=== PATIENT | male | born 1930 | race Caucasian/White ===

== ENCOUNTER 2016-07-13 17:20 | Inpatient (IN) | payer MEDICARE ==
[~2016-07-13] VITALS: Ht 185.4 cm; Wt 90.2 kg
[2016-07-13] MEDS ORDERED: PANTOPRAZOLE 40MG INJ (PROTONIX) (C9113) As Ordered ONE (17:58)
[2016-07-13 18:09] LABS: BASO % 0.3 % (0.0-1.0); EOS # 0.1 K/mm3 (0.0-0.50); EOS % 1.2 % (0.0-3.0); LARGE UNSTAINED CELL # 0.3 K/mm3 (0.0-0.4); LARGE UNSTAINED CELL % 2.4 % (0.0-4.0); LYMPH # 1.8 K/mm3 (1.5-4.5); LYMPH % 16.8 % (24.0-44.0); MEAN CORPUSCULAR HEMOGLOBIN 25.4 pg (27.0-33.0); MEAN CORPUSCULAR HGB CONC 31.1 g/dl (32.0-36.5); MEAN CORPUSCULAR VOLUME 81.7 fl (80.0-96.0); MONO # 0.8 K/mm3 (0.0-0.8); MONO % 7.3 % (0.0-5.0); NEUTROPHILS # 7.7 K/mm3 (1.8-7.7); NEUTROPHILS % 71.9 % (36.0-66.0); PLATELET COUNT, AUTOMATED 201 k/mm3 (150-450); RED CELL DISTRIBUTION WIDTH 16.4 % (11.5-14.5); WHITE BLOOD COUNT 10.6 K/mm3 (4.0-10.0)
[2016-07-13 18:16] LABS: INR 1.8
--- NOTE | 2016-07-13 18:29 | REP ---
Clinical: Shortness of breath . Comparison: None . Findings: The mediastinum and cardiac silhouette are stable and within normal limits for portable technique. The lung bernardo are clear without acute consolidation, effusion, or pneumothorax. Skeletal structures are intact. Impression: Normal portable chest x-ray Signed by Chu Espinoza MD 07/13/2016 06:20 P
[2016-07-13] MEDS ORDERED: XARE20TA PO (18:31)
[2016-07-13] MEDS ORDERED: IRBE150T12 PO (18:31)
[2016-07-13] MEDS ORDERED: FERR325T PO (18:31)
[2016-07-13 18:38] LABS: ALBUMIN 3.4 GM/DL (3.2-5.2); ALBUMIN/GLOBULIN RATIO 1.17 (1.00-1.93); ALKALINE PHOSPHATASE 65 U/L (45-117); ALT/SGPT 22 U/L (12-78); ANION GAP 9 MEQ/L (8-16); AST/SGOT 16 U/L (15-37); BILIRUBIN,DIRECT < 0.1 MG/DL (0.0-0.2); BILIRUBIN,TOTAL 0.2 MG/DL (0.2-1.0); BLOOD UREA NITROGEN 38 MG/DL (7-18); CALCIUM LEVEL 8.3 MG/DL (8.8-10.2); CARBON DIOXIDE LEVEL 24 MEQ/L (21-32); CHLORIDE LEVEL 107 MEQ/L (98-107); CREATININE FOR GFR 1.36 MG/DL (0.70-1.30); GLOMERULAR FILTRATION RATE 53.3 (>35); GLUCOSE, FASTING 121 MG/DL (83-110); POTASSIUM SERUM 4.4 MEQ/L (3.5-5.1); SODIUM LEVEL 140 MEQ/L (136-145); TOTAL PROTEIN 6.3 GM/DL (6.4-8.2)
[2016-07-13] MEDS ORDERED: BISACODYL 5 MG TAB PO PRN (20:15)
[2016-07-13] MEDS ORDERED: ACETAMINOPHEN TAB 650MG DOSE (2X325MG) PO PRN (20:15)
[2016-07-13] MEDS ORDERED: ONDANSETRON 4MG/2ML VIAL (J2405) IV PRN (20:15)
--- NOTE | 2016-07-13 22:02 | EDDOCDS ---
Physician Documentation [facility] Name: Royal Mahin Coppola Age: 85 yrs Sex: Male : 1930 Arrival Date: 07/13/2016 Time: 17:20 Bed 9 Private MD: Lurdes Disposition: 07/13/16 18:59 Hospitalization ordered by Demian Mccauley for Inpatient Admission. Preliminary diagnosis are Gastrointestinal hemorrhage, unspecified, Anemia, unspecified. - Bed requested for 4 [place]. - Status is Inpatient Admission. kas2 - Condition is Stable. - Problem is new. - Symptoms are unchanged. Historical: - Allergies: PENICILLINS; - Home Meds: 1. Xarelto 20 mg oral tab 1 tab once daily 2. irbesartan 150 mg oral tab 1 tab once daily 3. ferrous sulfate 140 mg (45 mg iron) Oral TbER twice a day - PMHx: Atrial Fib; AAA; Hypertension; Cancer, Prostate; - PSHx: Hemorrhoidectomy; - Social history: Smoking status: Patient states was never smoker of tobacco. No barriers to communication noted, The patient speaks fluent Kinyarwanda, Speaks appropriately for age. - Family history: Not pertinent. - : The pt / caregiver states he / she is on anticoagulants: Xarelto Home medication list is obtained from pill bottles. - Exposure Risk Screening:: None identified. Vital Signs: 07/13 17:22 BP 108 / 61; Pulse 96; Resp 18 S; Temp 97.3(O); Pulse Ox 99% on R/A; Weight 92.53 kg / gr2 203.99 lbs (R); Height 6 ft. 1 in. (185.42 cm) (R); Pain 3/10; 18:04 BP 139 / 65 (auto/); kas2 18:04 Pulse 84 MON; Pulse Ox 97% ; kas2 18:10 BP 139 / 65 LA Supine (auto/); Pulse 88; jjr 18:11 BP 87 / 58 LA Sitting (auto/); Pulse 109; jjr 18:20 BP 119 / 67 (auto/); jjr 18:20 Pulse 86 MON; Pulse Ox 98% ; jjr 18:34 Pulse 86 MON; Resp 18; Pulse Ox 97% on R/A; jjr 18:35 BP 126 / 60 (auto/); jjr 18:50 BP 121 / 55 (auto/); jjr 18:50 Pulse 80 MON; Pulse Ox 98% ; jjr 19:20 BP 118 / 59 (auto/); kas2 19:20 Pulse 88 MON; Pulse Ox 97% ; kas2 19:36 BP 133 / 61 (auto/); kas2 19:36 Pulse 96 MON; Pulse Ox 98% ; kas2 19:45 BP 133 / 61; Pulse 84; Resp 18; Temp 98.1(O); Pulse Ox 97% on R/A; Pain 0/10; kas2 19:50 BP 158 / 70 (auto/); kas2 19:50 Pulse 92 MON; Pulse Ox 98% ; kas2 19:58 BP 159 / 75 (auto/); kas2 19:58 Pulse 94 MON; Pulse Ox 98% ; kas2 20:00 Resp 18; Temp 98.7(O); Pain 0/10; kas2 20:05 BP 147 / 66 (auto/); kas2 20:05 Pulse 96 MON; Pulse Ox 99% ; kas2 20:20 BP 140 / 57 (auto/); kas2 20:20 Pulse 82 MON; Pulse Ox 97% ; kas2 20:35 BP 129 / 62 (auto/); kas2 20:35 Pulse 82 MON; Pulse Ox 97% ; kas2 20:47 BP 130 / 60 (auto/); kas2 20:47 Pulse 78 MON; Pulse Ox 97% ; kas2 20:50 BP 146 / 64 (auto/); kas2 20:50 Pulse 92 MON; Pulse Ox 96% ; kas2 21:05 BP 149 / 68 (auto/); kas2 21:05 Pulse 82 MON; Pulse Ox 98% ; kas2 21:19 BP 149 / 68; Pulse 88; Resp 18; Temp 97.6(O); Pulse Ox 98% on R/A; Pain 0/10; kas2 21:20 BP 146 / 70 (auto/); kas2 21:20 Pulse 84 MON; Pulse Ox 97% ; kas2 21:24 BP 145 / 68 (auto/); kas2 21:24 Pulse 100 MON; Pulse Ox 98% ; kas2 21:30 BP 145 / 68; Pulse 87; Resp 18; Temp 97.6; Pulse Ox 98% on R/A; Pain 0/10; kas2 21:35 BP 152 / 70 (auto/); kas2 21:35 Pulse 90 MON; Pulse Ox 97% ; kas2 21:43 BP 145 / 67 (auto/); kas2 21:43 Pulse 84 MON; Pulse Ox 98% ; kas2 21:52 BP 145 / 67; Pulse 81; Resp 18; Temp 98.0(O); Pulse Ox 98% on R/A; Pain 0/10; kas2 17:22 Body Mass Index 26.91 (92.53 kg, 185.42 cm) gr2 MDM: 17:42 Licensed Surveyor/Pulse Ox/q 30 min VS ordered. sd1 17:42 Undress patient appropriately for examination ordered. sd1 17:42 Orthostatic VS ordered. sd1 17:42 IV Saline Lock ordered. sd1 17:42 Basic Metabolic Profile Ordered. EDMS 17:42 CBC with Diff Ordered. EDMS 17:42 Lipase Ordered. EDMS 17:42 Liver Profile Ordered. EDMS 17:42 Prothrombin Time Profile\E\INR Ordered. EDMS 17:43 ECG WITH READING ER PHYS+CARDIAG ordered. EDMS 17:55 pantoprazole 8 mg/hr IV at 10 mL/hr continuous over 72 hrs; 40mg (10mL): withdraw 10mL sd1 from 50mL bag of NS then add protonix ordered. 17:55 pantoprazole 40 mg IV at bolus once ordered. sd1 18:02 BED REQUEST+ADM ordered. EDMS 18:03 Chest, 1 View Ordered. EDMS 18:16 Type and Cross, Packed Cells Ordered. EDMS 18:17 TYPE & SCREEN Ordered. EDMS 18:17 CBC with Diff Reviewed. sd1 18:23 Financial registration complete. gb 18:28 Prothrombin Time Profile\E\INR Reviewed. sd1 18:30 [facility] Payment Agreement was scanned into [employer] and attached to record. gb 18:30 Transfuse PRBC's 2 units, ensure PRBCs ordered in lab ordered. sd1 18:39 Basic Metabolic Profile Reviewed. sd1 18:39 Liver Profile Reviewed. sd1 18:39 Lipase Reviewed. sd1 18:39 Chest, 1 View Reviewed. sd1 20:15 NPO DIET ordered. EDMS 20:15 CBC WITH DIFFERENTIAL Ordered. EDMS 20:15 COMPLETE COMPHRENSIVE METABOLI Ordered. EDMS 20:17 HEMOGLOBIN & HEMATOCRIT Ordered. EDMS 20:17 HEMOGLOBIN & HEMATOCRIT Ordered. EDMS 20:17 HEMOGLOBIN & HEMATOCRIT Ordered. EDMS 21:20 Admission / Observation Status ordered. EDMS 21:54 T-Sheet-- Draft Copy was scanned into [employer] and attached to record. klr Administered Medications: 18:13 Drug: pantoprazole 40 mg [pantoprazole 40 mg intravenous solution] Route: IV; Rate: ld5 bolus; Site: right antecubital; 18:19 Drug: pantoprazole 8 mg/hr [pantoprazole 40 mg intravenous solution] Route: IV; Rate: jjr 10 mL/hr; Infused Over: 72 hrs; Site: right antecubital; Signatures: Dispatcher [employer] EDMS Katie Erwin MD MD sd1 Tarsha Calderon Reg Reg gb Barney, Michael B RN RN mlb1 Lashon Belcher RN RN sls1 Radha Davison RN RN kas2 Melida Kwon Jessica RN jjr Dickerson, Laura RN ld5 The chart was reviewed and I authenticate all verbal orders and agree with the evaluation and treatment provided.Corrections: (The following items were deleted from the chart) 18:41 17:43 TYPE & SCREEN+BBK ordered. EDIN EDMS Attachments: 18:30 [facility] Payment Agreement gb 21:54 T-Sheet-- Draft Copy klr MTDD
--- NOTE | 2016-07-13 22:02 | EDDOCDS ---
Nurse's Notes [facility] Name: Royal Mahin Coppola Age: 85 yrs Sex: Male : 1930 Arrival Date: 07/13/2016 Time: 17:20 Bed 9 Private MD: Lurdes Diagnosis: Gastrointestinal hemorrhage, unspecified;Anemia, unspecified Presentation: 07/13 17:27 Presenting complaint: Patient states: SOB weakness and bloody stools began on Friday mlb1 seen at [facility] on diagnosed with anemia states SOB worse since. Adult Sepsis Screening: The patient does not have new or worsening altered mentation. Patient's respiratory rate is less than 22. Systolic blood pressure is greater than 100. Patient has a qSOFA score of 0- Negative Sepsis Screen. Suicide/Homicide risk assessment- the patient denies having any suicidal and/or homicidal ideations and does not present with any other emotional, behavioral or mental health complaints. Status: Patient is not a building serviceman or dependent. Transition of care: patient was not received from another setting of care. 17:27 Acuity: LAURA Level 3 mlb1 17:27 Method Of Arrival: Walkin/Carried/Asstd mlb1 Triage Assessment: 17:31 General: Appears in no apparent distress, Behavior is appropriate for age, cooperative. mlb1 Pain: Denies pain. Neurological: Reports weakness. Respiratory: Reports shortness of breath. Historical: - Allergies: PENICILLINS; - Home Meds: 1. Xarelto 20 mg oral tab 1 tab once daily 2. irbesartan 150 mg oral tab 1 tab once daily 3. ferrous sulfate 140 mg (45 mg iron) Oral TbER twice a day - PMHx: Atrial Fib; AAA; Hypertension; Cancer, Prostate; - PSHx: Hemorrhoidectomy; - Social history: Smoking status: Patient states was never smoker of tobacco. No barriers to communication noted, The patient speaks fluent Spanish, Speaks appropriately for age. - Family history: Not pertinent. - : The pt / caregiver states he / she is on anticoagulants: Xarelto Home medication list is obtained from pill bottles. - Exposure Risk Screening:: None identified. Screenin:43 Screening information is obtained from the patient. Fall risk: No risks identified. jjr Assistance ADL's: requires no assistance with activities of daily living. Abuse/DV Screen: The patient / caregiver reports he/she is: not in a situation that causes fear, pain or injury. Nutritional screening: No deficits noted. home support is adequate. 21:49 Advance Directives: Currently, there is no health care proxy. There is no active DNR kas2 order. There is a living will, but a copy is not available at this time. There is no Power of Ear Nose And Throat Specialist. Assessment: 17:42 General: Appears in no apparent distress, well nourished, well groomed, Behavior is jjr appropriate for age. Pain: Denies pain. Neurological: No deficits noted. Cardiovascular: Edema is absent. Respiratory: Airway is patent Respiratory effort is even, unlabored, Respiratory pattern is regular, Breath sounds with rhonchi in right posterior lower lobe Reports shortness of breath on exertion. GI: Abd is soft and non tender X 4 quads. Reports black bowel movements. Derm: Skin is pink, warm & dry. 18:33 General: Appears in no apparent distress. Pain: Denies pain. Neurological: No deficits jjr noted. Cardiovascular: Rhythm is sinus rhythm. Respiratory: Airway is patent Respiratory effort is even, unlabored, Respiratory pattern is regular. Derm: Skin is pink, warm & dry. 18:59 General: Verbal report given by Gladis Morris RN. Assumed care of patient at this time.. kas2 19:45 General: 1st unit of PRBC's initiated. Patient resting in bed. Denies pain or kas2 discomfort at this time. No apparent distress noted. Call bronson within reach. Will continue to monitor.. 19:49 Pain: Denies pain. Neurological: No deficits noted. Level of Consciousness is awake, kas2 alert, Oriented to person, place, time. Cardiovascular: Capillary refill < 3 seconds Heart tones present Edema is absent. Rhythm is sinus rhythm No ectopy. Respiratory: Airway is patent Respiratory effort is even, unlabored, Respiratory pattern is regular, symmetrical, Breath sounds with rhonchi in right posterior lower lobe. GI: Abd is soft and non tender X 4 quads. Derm: Skin is dry, Skin is pink, warm & dry. Skin temperature is warm. 20:59 General: Patient resting in bed watching TV. No apparent distress noted. Denies pain or kas2 discomfort at this time. Appears comfortable. VSS. Call bronson within reach. Will continue to monitor.. 21:18 General: 1st unit of PRBC's finished. No reaction. VSS. Patient continues to be pain kas2 free. No apparent distress. Will continue to monitor.. 21:32 General: 2nd unit of PRBC's initiated. VSS. Patient continues to be pain free. Appears kas2 comfortable. No apparent distress noted. Will continue to monitor.. 21:49 General: Appears in no apparent distress, well nourished, well groomed, Behavior is kas2 appropriate for age. Pain: Denies pain. Neurological: Level of Consciousness is awake, alert, Oriented to person, place, time. Cardiovascular: Capillary refill < 3 seconds Heart tones present Rhythm is sinus rhythm No ectopy. Respiratory: Airway is patent Respiratory effort is even, unlabored, Respiratory pattern is regular, symmetrical, Breath sounds with rhonchi in right posterior lower lobe. GI: Abd is soft and non tender X 4 quads. Derm: Skin is dry, Skin is pink, warm & dry. Skin temperature is warm. Vital Signs: 17:22 BP 108 / 61; Pulse 96; Resp 18 S; Temp 97.3(O); Pulse Ox 99% on R/A; Weight 92.53 kg gr2 (R); Height 6 ft. 1 in. (185.42 cm) (R); Pain 3/10; 18:04 BP 139 / 65 (auto/); kas2 18:04 Pulse 84 MON; Pulse Ox 97% ; kas2 18:10 BP 139 / 65 LA Supine (auto/); Pulse 88; jjr 18:11 BP 87 / 58 LA Sitting (auto/); Pulse 109; jjr 18:20 BP 119 / 67 (auto/); jjr 18:20 Pulse 86 MON; Pulse Ox 98% ; jjr 18:34 Pulse 86 MON; Resp 18; Pulse Ox 97% on R/A; jjr 18:35 BP 126 / 60 (auto/); jjr 18:50 BP 121 / 55 (auto/); jjr 18:50 Pulse 80 MON; Pulse Ox 98% ; jjr 19:20 BP 118 / 59 (auto/); kas2 19:20 Pulse 88 MON; Pulse Ox 97% ; kas2 19:36 BP 133 / 61 (auto/); kas2 19:36 Pulse 96 MON; Pulse Ox 98% ; kas2 19:45 BP 133 / 61; Pulse 84; Resp 18; Temp 98.1(O); Pulse Ox 97% on R/A; Pain 0/10; kas2 19:50 BP 158 / 70 (auto/); kas2 19:50 Pulse 92 MON; Pulse Ox 98% ; kas2 19:58 BP 159 / 75 (auto/); kas2 19:58 Pulse 94 MON; Pulse Ox 98% ; kas2 20:00 Resp 18; Temp 98.7(O); Pain 0/10; kas2 20:05 BP 147 / 66 (auto/); kas2 20:05 Pulse 96 MON; Pulse Ox 99% ; kas2 20:20 BP 140 / 57 (auto/); kas2 20:20 Pulse 82 MON; Pulse Ox 97% ; kas2 20:35 BP 129 / 62 (auto/); kas2 20:35 Pulse 82 MON; Pulse Ox 97% ; kas2 20:47 BP 130 / 60 (auto/); kas2 20:47 Pulse 78 MON; Pulse Ox 97% ; kas2 20:50 BP 146 / 64 (auto/); kas2 20:50 Pulse 92 MON; Pulse Ox 96% ; kas2 21:05 BP 149 / 68 (auto/); kas2 21:05 Pulse 82 MON; Pulse Ox 98% ; kas2 21:19 BP 149 / 68; Pulse 88; Resp 18; Temp 97.6(O); Pulse Ox 98% on R/A; Pain 0/10; kas2 21:20 BP 146 / 70 (auto/); kas2 21:20 Pulse 84 MON; Pulse Ox 97% ; kas2 21:24 BP 145 / 68 (auto/); kas2 21:24 Pulse 100 MON; Pulse Ox 98% ; kas2 21:30 BP 145 / 68; Pulse 87; Resp 18; Temp 97.6; Pulse Ox 98% on R/A; Pain 0/10; kas2 21:35 BP 152 / 70 (auto/); kas2 21:35 Pulse 90 MON; Pulse Ox 97% ; kas2 21:43 BP 145 / 67 (auto/); kas2 21:43 Pulse 84 MON; Pulse Ox 98% ; kas2 21:52 BP 145 / 67; Pulse 81; Resp 18; Temp 98.0(O); Pulse Ox 98% on R/A; Pain 0/10; kas2 17:22 Body Mass Index 26.91 (92.53 kg, 185.42 cm) gr2 Vitals: 17:22 Log In Time: July 13, 2016 at 17:22. RN notified that patient meets Red Flag gr2 criteria. ED Course: 17:22 Patient visited by Haley Zavaleta. gr2 17:22 [place] is Private Physician. gr2 17:22 Patient moved to Waiting gr2 17:25 Patient visited by Haley Zavaleta. gr2 17:25 Patient moved to Pre RCE gr2 17:27 Patient visited by Thaddeus Dougherty, RN. mlb1 17:28 Triage Initiated mlb1 17:32 Patient visited by Thaddeus Dougherty, RN. mlb1 17:32 Gladis Zavaleta, CONRAD is Primary Nurse. mlb1 17:32 Patient moved to 9 mlb1 17:37 Katie Erwin MD is Attending Physician. sd1 17:41 Patient visited by Katie Erwin MD. sd1 17:43 Patient visited by Gladis Zavaleta RN. jjr 17:43 The patient / caregiver is instructed regarding the plan of care and ED course. jjr 17:51 Patient visited by Shubham Davila. jml1 17:51 EKG done. (by ED staff). Reviewed by Katie Erwin MD. jml1 18:03 Basic Metabolic Profile Sent. jjr 18:03 CBC with Diff Sent. jjr 18:03 Lipase Sent. jjr 18:03 Liver Profile Sent. jjr 18:03 Prothrombin Time Profile\E\INR Sent. jjr 18:27 Inserted saline lock: 20 gauge in right in left antecubital area. jjr 18:29 TYPE & SCREEN Sent. rs6 18:29 Type and Cross, Packed Cells Sent. rs6 18:30 [facility] [place] was scanned into [employer] and attached to record. gb 18:33 Patient visited by Gladis Zavaleta RN. jjr 18:39 Chest, 1 View Returned. EDMS 18:58 Primary Nurse role handed off by Gladis Zavaleta RN jjr 18:58 Radha Davison RN is Primary Nurse. kas2 18:59 Demian Mccauley MD is Hospitalizing Provider. sd1 19:00 Patient visited by Radha Davison RN. kas2 19:53 Patient visited by Radha Davison RN. kas2 20:05 Patient visited by Radha Davison RN. kas2 21:01 Patient visited by Radha Davison RN. kas2 21:20 Patient visited by Radha Davison RN. kas2 21:34 Patient visited by Radha Davison RN. kas2 21:49 No procedures done that require assistance. kas2 21:54 T-Sheet-- Draft Copy was scanned into [employer] and attached to record. klr 21:55 Patient visited by Radha Davison RN. kas2 Administered Medications: 18:13 Drug: pantoprazole 40 mg [pantoprazole 40 mg intravenous solution] Route: IV; Rate: ld5 bolus; Site: right antecubital; 18:19 Drug: pantoprazole 8 mg/hr [pantoprazole 40 mg intravenous solution] Route: IV; Rate: jjr 10 mL/hr; Infused Over: 72 hrs; Site: right antecubital; Order Results: Lab Order: Basic Metabolic Profile; [facility] 07/13/16 18:01 Test: GLUCOSE, FASTING; Value: 121; Range: 83-110; Abnormal: Above high normal; Units: MG/DL; Status: F Test: BLOOD UREA NITROGEN; Value: 38; Range: 7-18; Abnormal: Above high normal; Units: MG/DL; Status: F Test: CREATININE FOR GFR; Value: 1.36; Range: 0.70-1.30; Abnormal: Above high normal; Units: MG/DL; Status: F Test: GLOMERULAR FILTRATION RATE; Value: 53.3; Range: >35; Status: F Test: SODIUM LEVEL; Value: 140; Range: 136-145; Units: MEQ/L; Status: F Test: POTASSIUM SERUM; Value: 4.4; Range: 3.5-5.1; Units: MEQ/L; Status: F Test: CHLORIDE LEVEL; Value: 107; Range: 98-107; Units: MEQ/L; Status: F Test: CARBON DIOXIDE LEVEL; Value: 24; Range: 21-32; Units: MEQ/L; Status: F Test: ANION GAP; Value: 9; Range: 8-16; Units: MEQ/L; Status: F Test: CALCIUM LEVEL; Value: 8.3; Range: 8.8-10.2; Abnormal: Below low normal; Units: MG/DL; Status: F Test Note: ; Units are mL/min/1.73 m2 Chronic Kidney Disease Staging per NKF: Stage I & II GFR >=60 Normal to Mildly Decreased Stage III GFR 30-59 Moderately Decreased Stage IV GFR 15-29 Severely Decreased Stage V GFR <15 Very Little GFR Left ESRD GFR <15 on FEED BLENDER Lab Order: CBC with Diff; SPEC'[facility] 07/13/16 18:01 Test: WHITE BLOOD COUNT; Value: 10.6; Range: 4.0-10.0; Abnormal: Above high normal; Units: K/mm3; Status: F Test: RED BLOOD COUNT; Value: 2.78; Range: 4.30-6.10; Abnormal: Below low normal; Units: M/mm3; Status: F Test: HEMOGLOBIN; Value: 7.1; Range: 14.0-18.0; Abnormal: Below low normal; Units: g/dl; Status: F Test: HEMATOCRIT; Value: 22.7; Range: 42.0-52.0; Abnormal: Below low normal; Units: %; Status: F Test: MEAN CORPUSCULAR VOLUME; Value: 81.7; Range: 80.0-96.0; Units: fl; Status: F Test: MEAN CORPUSCULAR HEMOGLOBIN; Value: 25.4; Range: 27.0-33.0; Abnormal: Below low normal; Units: pg; Status: F Test: MEAN CORPUSCULAR HGB CONC; Value: 31.1; Range: 32.0-36.5; Abnormal: Below low normal; Units: g/dl; Status: F Test: RED CELL DISTRIBUTION WIDTH; Value: 16.4; Range: 11.5-14.5; Abnormal: Above high normal; Units: %; Status: F Test: PLATELET COUNT, AUTOMATED; Value: 201; Range: 150-450; Units: k/mm3; Status: F Test: NEUTROPHILS %; Value: 71.9; Range: 36.0-66.0; Abnormal: Above high normal; Units: %; Status: F Test: LYMPH %; Value: 16.8; Range: 24.0-44.0; Abnormal: Below low normal; Units: %; Status: F Test: MONO %; Value: 7.3; Range: 0.0-5.0; Abnormal: Above high normal; Units: %; Status: F Test: EOS %; Value: 1.2; Range: 0.0-3.0; Units: %; Status: F Test: BASO %; Value: 0.3; Range: 0.0-1.0; Units: %; Status: F Test: LARGE UNSTAINED CELL %; Value: 2.4; Range: 0.0-4.0; Units: %; Status: F Test: NEUTROPHILS #; Value: 7.7; Range: 1.8-7.7; Units: K/mm3; Status: F Test: LYMPH #; Value: 1.8; Range: 1.5-4.5; Units: K/mm3; Status: F Test: MONO #; Value: 0.8; Range: 0.0-0.8; Units: K/mm3; Status: F Test: EOS #; Value: 0.1; Range: 0.0-0.50; Units: K/mm3; Status: F Test: BASO #; Value: 0.0; Range: 0.0-0.2; Units: K/mm3; Status: F Test: LARGE UNSTAINED CELL #; Value: 0.3; Range: 0.0-0.4; Units: K/mm3; Status: F Lab Order: Lipase; [facility] 07/13/16 18:01 Test: LIPASE; Value: 229; Range: 73-393; Units: U/L; Status: F Lab Order: Liver Profile; [facility] 07/13/16 18:01 Test: AST/SGOT; Value: 16; Range: 15-37; Units: U/L; Status: F Test: ALT/SGPT; Value: 22; Range: 12-78; Units: U/L; Status: F Test: ALKALINE PHOSPHATASE; Value: 65; Range: 45-117; Units: U/L; Status: F Test: BILIRUBIN,TOTAL; Value: 0.2; Range: 0.2-1.0; Units: MG/DL; Status: F Test: BILIRUBIN,DIRECT; Value: < 0.1; Range: 0.0-0.2; Units: MG/DL; Status: F Test: TOTAL PROTEIN; Value: 6.3; Range: 6.4-8.2; Abnormal: Below low normal; Units: GM/DL; Status: F Test: ALBUMIN; Value: 3.4; Range: 3.2-5.2; Units: GM/DL; Status: F Test: ALBUMIN/GLOBULIN RATIO; Value: 1.17; Range: 1.00-1.93; Status: F Lab Order: Prothrombin Time Profile\E\INR; [facility] 07/13/16 18:01 Test: PROTHROMBIN TIME; Value: 21.0; Range: 12.3-14.5; Abnormal: Above high normal; Units: SECONDS; Status: F Test: INR; Value: 1.80; Status: F Test Note: ; THERAPUTIC HUMAN INR VALUES INDICATIONS NORMAL RANGES PROPHYLAXIS/TREATMENT OF: VENOUS THROMBOSIS 2.0-3.0 PULMONARY EMBOLISM 2.0-3.0 PREVENTION OF SYSTEMIC EMBOLISM FROM: TISSUE HEART VALVES 2.0-3.0 ACUTE MYOCARDIAL INFARCTION 2.0-3.0 VALVULAR HEART DISEASE 2.0-3.0 ATRIAL FIBRILLATION 2.0-3.0 MECHANICAL VALVES(HIGH RISK) 2.5-3.5 RECURRENT MYOCARDIAL INFARCTION 2.5-3.5 Lab Order: TYPE & SCREEN; [facility] 07/13/16 18:01 Test: BLOOD TYPE; Value: O POS; Status: F Test: AB SCREEN (INDIRECT JOLYNN)GEL; Value: NEGATIVE; Status: F Test: IMMEDIATE SPIN CROSSMATCH; Value: [id number] O POSITIVE Compatible? Y; Status: F Test: IMMEDIATE SPIN CROSSMATCH; Value: [id number] O POSITIVE Compatible? Y; Status: F Radiology Order: Chest, 1 View Test: Chest, 1 View REASON FOR EXAMINATION: Shortness of Breath; Clinical: Shortness of breath .; ; Comparison: None .; ; Findings:; The mediastinum and cardiac silhouette are stable and within normal limits for; portable technique. The lung bernardo are clear without acute consolidation,; effusion, or pneumothorax. Skeletal structures are intact.; ; Impression:; Normal portable chest x-ray; ; ; Signed by; Chu Espinoza MD 07/13/2016 06:20 P; Outcome: 18:59 Decision to Hospitalize by Provider. sd1 21:48 Discharge Assessment: patient administered narcotics - no. kas2 21:49 No special radiology studies were completed. kas2 22:00 The following High Risk Discharge criteria are identified: None. Admitted to Med/Surg kas2 accompanied by nurse, accompanied by tech, via stretcher, with chart. Condition: good Condition: stable Condition: improved. Property :Personal belongings accompany Pt. 22:01 Patient left the ED. [facility] Signatures: Dispatcher [employer] EDKS Katie Erwin MD MD sd1 Tarsha Calderon, Reg Reg sushma Dougherty, Thaddeus Rojo RN RN mlb1 Gladis Zavaleta RN RN jshanikar Destiny BrysonRN RN [id number] Shubham Davila jml1 Haley Zavaleta 2 Alva Ron, BILINGUAL ADMINISTRATIVE ASSISTANT BILINGUAL ADMINISTRATIVE ASSISTANT rs6 Radha Davison,RN RN kas2 Melida Kwon Corrections: (The following items were deleted from the chart) 18:41 18:03 TYPE & SCREEN+BBK sent. [facility] EDKS 19:52 19:49 General: Appears in no apparent distress, well nourished, well groomed, Behavior [facility] is appropriate for age, [facility] MTDD
[2016-07-13 22:30] VITALS: BP 145/64
[2016-07-13] MEDS: FERROUS SULFATE 325MG TAB PO SCH (22:50)
[2016-07-13] MEDS: PANTOPRAZOLE SODIUM 40 MG in D5W MINI-BAG PLUS 50 ML IV SCH (22:50)
[2016-07-13] MEDS: NS 1,000 ML IV SCH (22:51)
[2016-07-14] MEDS: PANTOPRAZOLE SODIUM 40 MG in D5W MINI-BAG PLUS 50 ML IV SCH ×4 (03:46→20:19)
[2016-07-14 05:30] VITALS: BP 134/59
--- NOTE | 2016-07-14 08:29 | HPE ---
DATE OF ADMISSION: 07/13/2016 PRIMARY CARE PHYSICIAN: Dr. Chatman CHIEF COMPLAINT: Gastrointestinal (GI) bleeding, anemia. HISTORY OF THE PRESENT ILLNESS: Mr. Stockton is an 85-year-old male with multiple past medical history who presented due to experiencing GI bleeding. The patient expressed that he has been having shortness of breath on and off; however, on Friday, the patient noticed that his shortness of breath had increased tremendously and the patient contacted his primary care who recommended the patient go to the emergency room (ER). The patient went to [facility] where they found out that the patient was anemic, and his hematocrit recorded to be 28. The patient was started on ferrous sulfate 325 mg twice a day by mouth and sent home. The patient expressed, however, his shortness of breath continues. The patient also noticed on Friday that he had dark stool; however, the patient did not see any fresh red blood in his stool. The patient continued to have dark stool since Friday. The patient also is on Xarelto for the past 2 years due to atrial fibrillation. About a month ago, the patient was started on aspirin by the primary care physician. The patient expressed that he continued to take Xarelto until this morning. However, the patient only missed one dose of Xarelto on Friday because he thought that by stopping the medication, it would decrease the bleeding. The patient also stopped taking aspirin since Friday. The patient denies fever, chills or night sweats. However , the patient expressed lightheadedness and dizziness every time he stands up from the sitting position. At the ER, the patient was found to have orthostatic hypotension. The patient received one dose of pantoprazole 40 mg bolus and hospitalists were called to admit the patient. ALLERGIES: PENICILLINS. HOME MEDICATIONS: - ferrous sulfate 325 mg twice a day - irbesartan 150 mg - Xarelto 20 mg by mouth daily; last dose was this morning - aspirin 81 mg; last dose was on Friday PAST MEDICAL HISTORY: 1. Atrial fibrillation. 2. Abdominal aortic aneurysm. 3. Hypertension. 4. Prostate cancer. PAST SURGICAL HISTORY: Hemorrhoidectomy. SOCIAL HISTORY: The patient lives with his . The patient drinks alcohol occasionally. The patient denies illicit drug use. The patient denies a history of smoking or using tobacco products. The patient has one cat. The patient has traveled to [place]. FAMILY HISTORY: The patient has two daughters and one son who are healthy. The patient has one sister who has ovarian cancer. The patient's father due to pancreatic cancer. The patient's mother due to old age. REVIEW OF SYSTEMS: GENERAL: The patient denies fever, chills, night sweats, weight loss, weight gain. HEENT: The patient denies acute vision changes; however, the patient has chronic hearing change and is following with primary care. The patient denies problems with chewing food or sinusitis. NECK: The patient denies lumps, bumps, or decreased range of motion of his neck. LUNGS: The patient denies wheezing; however, the patient has been experiencing dyspnea exacerbation since Friday. HEART: The patient denies palpitations, racing or skipping heartbeat, or chest pain. ABDOMEN: The patient denies abdominal pain, nausea or vomiting; however, the patient is experiencing melena. The patient denies hematochezia. NEUROLOGIC: The patient denies history of transient ischemic attack (TIA), cerebrovascular accident or seizure-type activities. PHYSICAL EXAMINATION: VITAL SIGNS: Blood pressure 108/61, pulse 96, respiratory rate 18, temperature 97.3, pulse 99 on room air, weight 92.53 kg, height 185.42 cm, body mass index (BMI) 26.91. GENERAL APPEARANCE: The patient was lying in bed in no acute distress. The patient was awake, alert and oriented to time, place and person. HEENT: Normocephalic, atraumatic. Pupils are equal. Oral mucosa is moist. NECK: Soft, supple. No lymphadenopathy, no thyromegaly. HEART: Regular. The patient has a systolic murmur; however, no rub or gallop was noticed. LUNGS: Clear breath sound bilaterally. Good air movement. ABDOMEN: Soft, nontender, positive bowel sounds in all quadrants. EXTREMITIES: No lower extremity edema. +2 pulses in both lower extremities. The patient has bilateral strength 5/5. NEUROLOGIC: Cranial nerves II-XII intact. No focal deficiencies. LABORATORY DATA: White blood cells 10.6, red blood cells 2.78, hemoglobin 7.1, hematocrit 22.7, MCV 81.7, MCH 25.4, MCHC 31.1, RDW 16.4, platelet count 201, neutrophil percentage 71.9, lymphocyte percentage 16.8, monocyte percentage 7.3, eosinophil percentage 1.3, basophil percentage 0.3, leukocyte percentage 2.4. PT 21, INR 1.80. Sodium 140, potassium 4.4, chloride 107, carbon dioxide 24, anion gap 9, BUN 38, creatinine 1.36, glomerular filtration rate 53.3, fasting glucose 121, calcium 8.3, total bilirubin 0.2, direct bilirubin less than 0.1. AST 16, ALT 22, alkaline phosphatase 65, total protein 6.3, albumin 3.4, lipase 229. Chest x-ray: Normal. ASSESSMENT AND PLAN: 1. Gastrointestinal bleeding. Dr. Clancy has been consulted by the emergency room. At this time, we will make the patient nothing by mouth. The patient is receiving two units of packed red blood cells. We have stopped Xarelto and aspirin, and we will check the hemoglobin and hematocrit every 8 hours, and we will continue the patient on normal saline. 2. Atrial fibrillation. At this time, the patient is sinus rhythm. The patient was on Xarelto and aspirin; however, we have stopped these two medications due to GI bleeding. We will continue to monitor the patient for any abnormal symptoms. 3. Abdominal aortic aneurysm. This is a chronic issue. At this time, the patient is stable. 4. Hypertension. We will continue the patient on irbesartan. 5. Prostate cancer. The patient is stable at this time. We will continue to monitor the patient for any abnormal symptoms. 6. Anemia. This is secondary to GI bleeding. The patient is receiving two units of red blood cells. Also, we will continue the patient on ferrous sulfate. 7. Deep vein thrombosis (DVT) prophylaxis. The patient is on thromboembolism deterrents (TEDs) and sequentials due to GI bleeding. My preceptor for this patient encounter was Dr. Demian Mccauley. The preceptor was physically present in the building during the encounter and was fully available. As needed, all aspects of the patient interview, examination, medical decision making process, and medical care plan development were reviewed and approved by the preceptor. The preceptor is aware and concurs with the plan as stated in the body of this note and will attest to such by his/her cosignature. edited: 07/23/2016 0946 lois BATRES
[2016-07-14] MEDS ORDERED: PANTOPRAZOLE 40MG INJ (PROTONIX) (C9113) IV SCH (09:00)
[2016-07-14] MEDS: IRBESARTAN 150 MG TAB PO SCH (09:29)
[2016-07-14] MEDS: FERROUS SULFATE 325MG TAB PO SCH ×2 (09:29→20:18)
[2016-07-14 09:34] LABS: BASO # 0.2 K/mm3 (0.0-0.2); BASO % 1.7 % (0.0-1.0); EOS # 0.2 K/mm3 (0.0-0.50); LARGE UNSTAINED CELL # 0.2 K/mm3 (0.0-0.4); LARGE UNSTAINED CELL % 1.9 % (0.0-4.0); LYMPH % 19.6 % (24.0-44.0); MEAN CORPUSCULAR HEMOGLOBIN 27.6 pg (27.0-33.0); MEAN CORPUSCULAR HGB CONC 33.4 g/dl (32.0-36.5); MEAN CORPUSCULAR VOLUME 82.8 fl (80.0-96.0); MONO # 0.7 K/mm3 (0.0-0.8); MONO % 7.8 % (0.0-5.0); NEUTROPHILS # 6.3 K/mm3 (1.8-7.7); NEUTROPHILS % 67.2 % (36.0-66.0); PLATELET COUNT, AUTOMATED 153 k/mm3 (150-450); RED CELL DISTRIBUTION WIDTH 16.7 % (11.5-14.5); WHITE BLOOD COUNT 9.4 K/mm3 (4.0-10.0)
[2016-07-14] MEDS: NS 1,000 ML IV SCH ×2 (09:50→18:48)
[2016-07-14 10:08] LABS: ALBUMIN 2.9 GM/DL (3.2-5.2); ALBUMIN/GLOBULIN RATIO 1.26 (1.00-1.93); ALKALINE PHOSPHATASE 58 U/L (45-117); ALT/SGPT 20 U/L (12-78); ANION GAP 8 MEQ/L (8-16); AST/SGOT 21 U/L (15-37); BILIRUBIN,TOTAL 1.2 MG/DL (0.2-1.0); BLOOD UREA NITROGEN 32 MG/DL (7-18); CALCIUM LEVEL 7.6 MG/DL (8.8-10.2); CARBON DIOXIDE LEVEL 24 MEQ/L (21-32); CHLORIDE LEVEL 111 MEQ/L (98-107); CREATININE FOR GFR 1.13 MG/DL (0.70-1.30); GLOMERULAR FILTRATION RATE > 60.0 (>35); GLUCOSE, FASTING 94 MG/DL (83-110); POTASSIUM SERUM 4.3 MEQ/L (3.5-5.1); SODIUM LEVEL 143 MEQ/L (136-145); TOTAL PROTEIN 5.2 GM/DL (6.4-8.2)
--- NOTE | 2016-07-14 10:24 | ECGEPIP ---
Stationary ECG Study [facility] - ED Test Date: 2016-07-13 Pat Name: [facility] Department: Room: [place] [address] Gender: M Machine Pec[employer] Picker: [id number] : [id number] Requested By: Katie Erwin Order Number: [id number] Reading MD: Chava Azul Measurements Intervals [place] Rate: 81 P: 53 TN: 142 QRS: 36 QRSD: 86 T: 100 QT: 337 QTc: 393 Interpretive Statements SINUS RHYTHM WITH SINUS ARRHYTHMIA NONSPECIFIC ST & T-WAVE ABNORMALITY NO PRIORS Electronically Signed On 07-14-2016 10:23:56 EST by Chava Azul
--- NOTE | 2016-07-14 13:23 | IPNPDOC ---
Assessment/Plan Date Seen The patient was seen on 07/14/16. Problems Problems: (1) Hemorrhagic disorder due to intrinsic circulating anticoagulants Status: Acute Problem Text: due to ASA and xarelto , EGD and colonoscopy to be done. (2) Acute blood loss anemia Status: Acute Problem Text: from acute gi bleed received 4 units of PRBC. (3) GI bleed Status: Acute Problem Text: could be related to asa and xarelto treatment. inr elevated will give vit k once. surgery to see for evaluation for EGD and colonoscopy. (4) Atrial fibrillation Status: Chronic Problem Text: paroxysmal , now in sinus rhythm. xarelto stopped for gib (5) History of prostate cancer Status: Chronic Problem Text: diagnosed 10 years ago has not required any treatment yet (6) Hypertension Status: Chronic (7) AAA (abdominal aortic aneurysm) Status: Chronic Plan / VTE VTE Prophylaxis Ordered?: Yes Subjective Review of Systems CC/HPI The patient is a 85-year-old male admitted with a reason for visit of Atrial Fibrillation,Gi Bleed. Events since last encounter had rei 2 overnight and again this am with bright red blood, denies any sob , denies any chest pain or abdominal pain , denies any nausea or vomiting. Objective Physical Examination General Exam: Positive: Alert, No Acute Distress Eye Exam: Positive: Conjunctiva & lids normal, EOMI, PERRLA, Negative: Sclera icteric ENT Exam: Positive: Atraumatic, Mucous membr. moist/pink, Pharynx Normal Neck Exam: Positive: Supple, Negative: JVD, thyromegaly Chest Exam: Positive: Clear to auscultation, Normal air movement Heart Exam: Positive: Murmurs, Normal S1, Normal S2, Rate Normal Abdomen Exam: Positive: Normal bowel sounds, Soft, Negative: Hepatospenomegaly, Tenderness Extremity Exam: Positive: Normal pulses, Negative: Clubbing, Cyanosis, Edema Vital Signs/I&O Vital Signs Date Time Temp Pulse Resp B/P Pulse Ox O2 Delivery O2 Flow Rate FiO2 07/14/16 09:29 147/70 07/14/16 05:30 97.7 79 18 96 Room Air I&O- Last 24 Hours up to 6 AM 07/14/16 06:00 Intake Total 820 ml Output Total 650 ml Balance 170 ml Laboratory Data Labs 24H Laboratory Tests 2 07/13/16 18:01: Aspartate Amino Transf (AST/SGOT) 16, Alanine Aminotransferase (ALT/SGPT) 22, Alkaline Phosphatase 65, Total Bilirubin 0.2, Direct Bilirubin < 0.1, Albumin 3.4, Albumin/Globulin Ratio 1.17, Anion Gap 9, White Blood Count 10.6H, Red Blood Count 2.78L, Hemoglobin 7.1L, Hematocrit 22.7L, Mean Corpuscular Volume 81.7, Mean Corpuscular Hemoglobin 25.4L, Mean Corpuscular Hemoglobin Concent 31.1L, Red Cell Distribution Width 16.4H, Platelet Count 201, Neutrophils (%) ( Auto) 71.9H, Lymphocytes (%) (Auto) 16.8L, Monocytes (%) (Auto) 7.3H, Eosinophils (%) (Auto) 1.2, Basophils (%) (Auto) 0.3, Neutrophils # (Auto) 7.7, Lymphocytes # (Auto) 1.8, Monocytes # (Auto) 0.8, Eosinophils # (Auto) 0.1, Basophils # (Auto) 0.0, Calcium Level 8.3L, Glomerular Filtration Rate 53.3, Large Unclassified Cells # 0.3, Large Unclassified Cells % 2.4, Lipase 229, Prothromb Time International Ratio 1.80, Prothrombin Time 21.0H, Total Protein 6.3L 07/14/16 09:18: Aspartate Amino Transf (AST/SGOT) 21, Alanine Aminotransferase (ALT/SGPT) 20, Alkaline Phosphatase 58, Total Bilirubin 1.2#H, Albumin 2.9L, Albumin/Globulin Ratio 1.26, Anion Gap 8, White Blood Count 9.4, Red Blood Count 3.37L, Hemoglobin 9.3L, Hematocrit 27.9L, Mean Corpuscular Volume 82.8, Mean Corpuscular Hemoglobin 27.6, Mean Corpuscular Hemoglobin Concent 33.4, Red Cell Distribution Width 16.7H, Platelet Count 153, Neutrophils (%) (Auto) 67.2H, Lymphocytes (%) (Auto) 19.6L, Monocytes (%) (Auto) 7.8H, Eosinophils (%) (Auto) 2.0, Basophils (%) (Auto) 1.7H, Neutrophils # (Auto) 6.3, Lymphocytes # (Auto) 2.0, Monocytes # (Auto) 0.7, Eosinophils # (Auto) 0.2, Basophils # (Auto) 0.2, Calcium Level 7.6L, Glomerular Filtration Rate > 60.0, Large Unclassified Cells # 0.2, Large Unclassified Cells % 1.9, Total Protein 5.2L, Blood Urea Nitrogen 32H, Creatinine 1.13, Sodium Level 143, Potassium Level 4.3, Chloride Level 111H , Carbon Dioxide Level 24 CBC/BMP Laboratory Tests 07/13/16 18:01 Red Blood Count 2.78 L, Mean Corpuscular Volume 81.7, Mean Corpuscular Hemoglobin 25.4 L, Mean Corpuscular Hemoglobin Concent 31.1 L, Red Cell Distribution Width 16.4 H, Neutrophils (%) (Auto) 71.9 H, Lymphocytes (%) (Auto ) 16.8 L, Monocytes (%) (Auto) 7.3 H, Eosinophils (%) (Auto) 1.2, Basophils (%) (Auto) 0.3, Neutrophils # (Auto) 7.7, Lymphocytes # (Auto) 1.8, Monocytes # ( Auto) 0.8, Eosinophils # (Auto) 0.1, Basophils # (Auto) 0.0 07/14/16 01:52 07/14/16 09:18 Red Blood Count 3.37 L, Mean Corpuscular Volume 82.8, Mean Corpuscular Hemoglobin 27.6, Mean Corpuscular Hemoglobin Concent 33.4, Red Cell Distribution Width 16.7 H, Neutrophils (%) (Auto) 67.2 H, Lymphocytes (%) (Auto ) 19.6 L, Monocytes (%) (Auto) 7.8 H, Eosinophils (%) (Auto) 2.0, Basophils (%) (Auto) 1.7 H, Neutrophils # (Auto) 6.3, Lymphocytes # (Auto) 2.0, Monocytes # ( Auto) 0.7, Eosinophils # (Auto) 0.2, Basophils # (Auto) 0.2, Calcium Level 7.6 L , Aspartate Amino Transf (AST/SGOT) 21, Alanine Aminotransferase (ALT/SGPT) 20, Alkaline Phosphatase 58, Total Bilirubin 1.2 #H, Total Protein 5.2 L, Albumin 2.9 L YOLY STERLING MD Jul 14, 2016 13:23
[2016-07-14 14:00] VITALS: BP 125/62
[2016-07-14] MEDS ORDERED: PHYTONADIONE 10MG/ML INJECTION (J3430) SC ONE (14:00)
[2016-07-14] MEDS ORDERED: PROPOFOL 200 MG/20 ML VIAL As Ordered ONE (18:00)
[2016-07-14] MEDS ORDERED: LIDOCAINE 2% INJ 100 MG/5 ML SDV (FOR ANES.) As Ordered ONE (18:00)
[2016-07-14 18:40] VITALS: BP 126/72
[2016-07-14] MEDS ORDERED: GOLYTELY SOLN 4000 ML BTL PO SCH (21:00)
[2016-07-14 22:00] VITALS: BP 137/66
--- NOTE | 2016-07-14 22:52 | ROOR ---
Patient Name: Royal Stockton Procedure Date: 07/14/2016 5:43 PM Date of : 1930 Age: 85 Gender: Male Note Status: Finalized Procedure: Upper GI endoscopy Indications: Melena Providers: Keegan Clancy MD Referring MD: Diana Schumacher MD Requesting Provider: Medicines: Monitored Anesthesia Care Complications: No immediate complications. Procedure: Pre-Anesthesia Assessment: - Prior to the procedure, a History and Physical was performed, and patient medications and allergies were reviewed. The patient is competent. The risks and benefits of the procedure and the sedation options and risks were discussed with the patient. All questions were answered and informed consent was obtained. Patient identification and proposed procedure were verified by the physician, the nurse and the master machinist in the procedure room. Mental Status Examination: alert and oriented. Airway Examination: normal oropharyngeal airway and neck mobility. CV Examination: regular rate and rhythm. Prophylactic Antibiotics: The patient does not require prophylactic antibiotics. Prior Anticoagulants: The patient has taken no previous anticoagulant or antiplatelet agents. ASA Grade Assessment: III - A patient with severe systemic disease. After reviewing the risks and benefits, the patient was deemed in satisfactory condition to undergo the procedure. The anesthesia plan was to use monitored anesthesia care (MAC). Immediately prior to administration of medications, the patient was re-assessed for adequacy to receive sedatives. The heart rate, respiratory rate, oxygen saturations, blood pressure, adequacy of pulmonary ventilation, and response to care were monitored throughout the procedure. The physical status of the patient was re-assessed after the procedure. The Endoscope was introduced through the mouth, and advanced to the third part of duodenum. The upper GI endoscopy was accomplished without difficulty. The patient tolerated the procedure well. Findings: The examined esophagus was normal. A small hiatus hernia was present. Multiple 2 to 8 mm sessile polyps with no bleeding and no stigmata of recent bleeding were found in the gastric fundus and in the gastric body. Localized mildly erythematous mucosa with some small area of blood staining was found in the cardia. This appeared consistent with some local trauma from abrasion with the scope. The examined duodenum was normal. Impression: - Normal esophagus. - Small hiatus hernia. - Multiple gastric polyps. - Erythematous mucosa in the cardia. - Normal examined duodenum. - No specimens collected. Recommendation: - [facility]. - Perform a colonoscopy tomorrow. Attending Participation: I personally performed the entire procedure. Keegan Clancy MD 07/14/2016 10:51:50 PM Number of Addenda: 0 Note Initiated On: 07/14/2016 5:43 PM Estimated Blood Loss: Estimated blood loss: none.
[2016-07-15] MEDS: PANTOPRAZOLE SODIUM 40 MG in D5W MINI-BAG PLUS 50 ML IV SCH ×5 (01:12→18:45)
[2016-07-15 07:43] LABS: BASO % 0.2 % (0.0-1.0); EOS # 0.2 K/mm3 (0.0-0.50); EOS % 2.1 % (0.0-3.0); LARGE UNSTAINED CELL # 0.2 K/mm3 (0.0-0.4); LARGE UNSTAINED CELL % 2.3 % (0.0-4.0); LYMPH # 1.9 K/mm3 (1.5-4.5); LYMPH % 21.5 % (24.0-44.0); MEAN CORPUSCULAR HEMOGLOBIN 26.9 pg (27.0-33.0); MEAN CORPUSCULAR HGB CONC 31.8 g/dl (32.0-36.5); MEAN CORPUSCULAR VOLUME 84.7 fl (80.0-96.0); MONO # 0.6 K/mm3 (0.0-0.8); MONO % 6.8 % (0.0-5.0); NEUTROPHILS % 67.1 % (36.0-66.0); PLATELET COUNT, AUTOMATED 141 k/mm3 (150-450); RED CELL DISTRIBUTION WIDTH 15.9 % (11.5-14.5)
[2016-07-15 07:56] LABS: ALBUMIN 2.6 GM/DL (3.2-5.2); ALBUMIN/GLOBULIN RATIO 1.37 (1.00-1.93); BILIRUBIN,TOTAL 0.8 MG/DL (0.2-1.0); CALCIUM LEVEL 7.5 MG/DL (8.8-10.2); CREATININE FOR GFR 1.23 MG/DL (0.70-1.30); GLOMERULAR FILTRATION RATE 59.8 (>35); POTASSIUM SERUM 3.9 MEQ/L (3.5-5.1); TOTAL PROTEIN 4.5 GM/DL (6.4-8.2)
[2016-07-15] MEDS: FERROUS SULFATE 325MG TAB PO SCH ×2 (08:15→21:11)
[2016-07-15] MEDS: IRBESARTAN 150 MG TAB PO SCH (08:16)
[2016-07-15] MEDS ORDERED: PROPOFOL 500 MG/50 ML VIAL As Ordered ONE (09:57)
[2016-07-15] MEDS ORDERED: PHENYLephrine HCL 500 MCG/5 ML (100MCG/ML) SYRINGE (J2370) As Ordered ONE ×2 (10:03→10:33)
[2016-07-15] MEDS ORDERED: LR 1,000 ML IV SCH (11:30)
[2016-07-15 11:45] VITALS: BP 128/63
[2016-07-15 14:00] VITALS: BP 114/55
--- NOTE | 2016-07-15 14:34 | IPNPDOC ---
Assessment/Plan Date Seen The patient was seen on 07/15/16. Problems Problems: (1) Hemorrhagic disorder due to intrinsic circulating anticoagulants Status: Acute Problem Text: due to Aspirin and xarelto resulting in GIB with marianne and hematochezia. colonoscopy pending (2) Acute blood loss anemia Status: Acute Problem Text: from acute gi bleed received 5 units of PRBC. will give 2 more units today. (3) GI bleed Status: Acute Problem Text: could be related to asa and xarelto treatment. inr elevated will given vit k once. Had EGD 07/14/16 and colonoscopy today EGD showed some erythema of the stomach no bleeding source identified hiatal hernia and gastric polyps. (4) Atrial fibrillation Status: Chronic Problem Text: paroxysmal , now in sinus rhythm. xarelto stopped for gib (5) History of prostate cancer Status: Chronic Problem Text: diagnosed 10 years ago has not required any treatment yet (6) Hypertension Status: Chronic (7) AAA (abdominal aortic aneurysm) Status: Chronic Plan / VTE VTE Prophylaxis Ordered?: Yes Subjective Review of Systems CC/HPI The patient is a 85-year-old male admitted with a reason for visit of Atrial Fibrillation,Gi Bleed. Events since last encounter h/h again dropped last night and recieved 1 more unit of prbc. Had egd yesterday due for colonoscopy today. no fever or chills, no abdominal pain nause or vomiting. Marianne continuing. Objective Physical Examination General Exam: Positive: Alert, No Acute Distress Eye Exam: Positive: Conjunctiva & lids normal, EOMI, PERRLA, Negative: Sclera icteric ENT Exam: Positive: Atraumatic, Mucous membr. moist/pink, Pharynx Normal Neck Exam: Positive: Supple, Negative: JVD, thyromegaly Chest Exam: Positive: Clear to auscultation, Normal air movement Heart Exam: Positive: Murmurs, Normal S1, Normal S2, Rate Normal Abdomen Exam: Positive: Normal bowel sounds, Soft, Negative: Hepatospenomegaly, Tenderness Extremity Exam: Positive: Normal pulses, Negative: Clubbing, Cyanosis, Edema Vital Signs/I&O Vital Signs Date Time Temp Pulse Resp B/P Pulse Ox O2 Delivery O2 Flow Rate FiO2 07/14/16 22:00 96.0 77 16 137/66 98 Room Air I&O- Last 24 Hours up to 6 AM 07/15/16 06:00 Intake Total 3800 ml Output Total 408 ml Balance 3392 ml Laboratory Data Labs 24H Laboratory Tests 2 07/14/16 09:18: Blood Urea Nitrogen 32H, Creatinine 1.13, Sodium Level 143, Potassium Level 4.3 , Chloride Level 111H, Carbon Dioxide Level 24, Calcium Level 7.6L, Aspartate Amino Transf (AST/SGOT) 21, Alanine Aminotransferase (ALT/SGPT) 20, Alkaline Phosphatase 58, Total Bilirubin 1.2#H, Total Protein 5.2L, Albumin 2.9L, Albumin /Globulin Ratio 1.26, Anion Gap 8, White Blood Count 9.4, Red Blood Count 3.37L , Hemoglobin 9.3L, Hematocrit 27.9L, Mean Corpuscular Volume 82.8, Mean Corpuscular Hemoglobin 27.6, Mean Corpuscular Hemoglobin Concent 33.4, Red Cell Distribution Width 16.7H, Platelet Count 153, Neutrophils (%) (Auto) 67.2H, Lymphocytes (%) (Auto) 19.6L, Monocytes (%) (Auto) 7.8H, Eosinophils (%) (Auto) 2.0, Basophils (%) (Auto) 1.7H, Neutrophils # (Auto) 6.3, Lymphocytes # (Auto) 2.0, Monocytes # (Auto) 0.7, Eosinophils # (Auto) 0.2, Basophils # (Auto) 0.2, Glomerular Filtration Rate > 60.0, Large Unclassified Cells # 0.2, Large Unclassified Cells % 1.9 07/15/16 07:25: Blood Urea Nitrogen 25H, Creatinine 1.23, Sodium Level 144, Potassium Level 3.9 , Chloride Level 112H, Carbon Dioxide Level 24, Calcium Level 7.5L, Aspartate Amino Transf (AST/SGOT) 17, Alanine Aminotransferase (ALT/SGPT) 18, Alkaline Phosphatase 54, Total Bilirubin 0.8, Total Protein 4.5L, Albumin 2.6L, Albumin/ Globulin Ratio 1.37, Anion Gap 8, White Blood Count 9.0, Red Blood Count 2.92L, Hemoglobin 7.9L, Hematocrit 24.7L, Mean Corpuscular Volume 84.7, Mean Corpuscular Hemoglobin 26.9L, Mean Corpuscular Hemoglobin Concent 31.8L, Red Cell Distribution Width 15.9H, Platelet Count 141L, Neutrophils (%) (Auto) 67.1H , Lymphocytes (%) (Auto) 21.5L, Monocytes (%) (Auto) 6.8H, Eosinophils (%) (Auto ) 2.1, Basophils (%) (Auto) 0.2, Neutrophils # (Auto) 6.0, Lymphocytes # (Auto) 1.9, Monocytes # (Auto) 0.6, Eosinophils # (Auto) 0.2, Basophils # (Auto) 0.0, Glomerular Filtration Rate 59.8, Large Unclassified Cells # 0.2, Large Unclassified Cells % 2.3 CBC/BMP Laboratory Tests 07/14/16 09:18 Calcium Level 7.6 L, Aspartate Amino Transf (AST/SGOT) 21, Alanine Aminotransferase (ALT/SGPT) 20, Alkaline Phosphatase 58, Total Bilirubin 1.2 #H , Total Protein 5.2 L, Albumin 2.9 L, Red Blood Count 3.37 L, Mean Corpuscular Volume 82.8, Mean Corpuscular Hemoglobin 27.6, Mean Corpuscular Hemoglobin Concent 33.4, Red Cell Distribution Width 16.7 H, Neutrophils (%) (Auto) 67.2 H , Lymphocytes (%) (Auto) 19.6 L, Monocytes (%) (Auto) 7.8 H, Eosinophils (%) ( Auto) 2.0, Basophils (%) (Auto) 1.7 H, Neutrophils # (Auto) 6.3, Lymphocytes # ( Auto) 2.0, Monocytes # (Auto) 0.7, Eosinophils # (Auto) 0.2, Basophils # (Auto) 0.2 07/14/16 18:50 07/15/16 01:55 07/15/16 07:25 Calcium Level 7.5 L, Aspartate Amino Transf (AST/SGOT) 17, Alanine Aminotransferase (ALT/SGPT) 18, Alkaline Phosphatase 54, Total Bilirubin 0.8, Total Protein 4.5 L, Albumin 2.6 L, Red Blood Count 2.92 L, Mean Corpuscular Volume 84.7, Mean Corpuscular Hemoglobin 26.9 L, Mean Corpuscular Hemoglobin Concent 31.8 L, Red Cell Distribution Width 15.9 H, Neutrophils (%) (Auto) 67.1 H, Lymphocytes (%) (Auto) 21.5 L, Monocytes (%) (Auto) 6.8 H, Eosinophils (%) ( Auto) 2.1, Basophils (%) (Auto) 0.2, Neutrophils # (Auto) 6.0, Lymphocytes # ( Auto) 1.9, Monocytes # (Auto) 0.6, Eosinophils # (Auto) 0.2, Basophils # (Auto) 0.0 YOLY STERLING MD Jul 15, 2016 08:15
[2016-07-15] MEDS ORDERED: FUROSEMIDE 20 MG/2 ML VIAL (J1940) IV ONE (14:45)
--- NOTE | 2016-07-15 16:13 | ROOR ---
Patient Name: Royal Stockton Procedure Date: 07/15/2016 9:41 AM Date of : 1930 Age: 85 Room: Main OR Gender: Male Note Status: Finalized Procedure: Colonoscopy Indications: Hematochezia Providers: Keegan Clancy MD Referring MD: Diana Schumacher MD Requesting Provider: Medicines: Monitored Anesthesia Care Complications: No immediate complications. Procedure: Pre-Anesthesia Assessment: - Prior to the procedure, a History and Physical was performed, and patient medications and allergies were reviewed. The patient is competent. The risks and benefits of the procedure and the sedation options and risks were discussed with the patient. All questions were answered and informed consent was obtained. Patient identification and proposed procedure were verified by the physician, the nurse and the anesthesiologist in the procedure room. Mental Status Examination: alert and oriented. Airway Examination: normal oropharyngeal airway and neck mobility. CV Examination: regular rate and rhythm. Prophylactic Antibiotics: The patient does not require prophylactic antibiotics. Prior Anticoagulants: The patient has taken no previous anticoagulant or antiplatelet agents. ASA Grade Assessment: III - A patient with severe systemic disease. After reviewing the risks and benefits, the patient was deemed in satisfactory condition to undergo the procedure. The anesthesia plan was to use monitored anesthesia care (MAC). Immediately prior to administration of medications, the patient was re-assessed for adequacy to receive sedatives. The heart rate, respiratory rate, oxygen saturations, blood pressure, adequacy of pulmonary ventilation, and response to care were monitored throughout the procedure. The physical status of the patient was re-assessed after the procedure. The Colonoscope was introduced through the anus and advanced to the cecum, identified by appendiceal orifice and ileocecal valve. The colonoscopy was performed without difficulty. The patient tolerated the procedure well. The quality of the bowel preparation was adequate. There was blood and some small amt of clot throughout the colon. Findings: The perianal and digital rectal examinations were normal. One small localized angioectasia with bleeding was found in the cecum. Fulguration to stop the bleeding by hot biopsy forceps was successful. The bleeding point was a pinpoint spot on a fold in the cecum. There was continuous slow pulsatile bleeding. The surrounding mucosa was normal. Multiple small-mouthed diverticula were found in the sigmoid colon. A 4 mm polyp was found at 40 cm proximal to the anus. The polyp was sessile. No biopsies or other specimens were collected for this exam. Impression: - One with bleeding colonic angioectasia. Treated with hot biopsy forceps. - Diverticulosis in the sigmoid colon. - One 4 mm polyp at 40 cm proximal to the anus. No specimens collected. Recommendation: - Clear liquid diet. - Return patient to [facility] for ongoing care. Attending Participation: I personally performed the entire procedure. Keegan Clancy MD 07/15/2016 4:12:55 PM Number of Addenda: 0 Note Initiated On: 07/15/2016 9:41 AM Estimated Blood Loss: Estimated blood loss: none.
[2016-07-15 22:00] VITALS: BP 146/78
--- NOTE | 2016-07-15 23:02 | EDDOCDS ---
Physician Documentation [facility] Name: Royal Mahin Coppola Age: 85 yrs Sex: Male : 1930 Arrival Date: 07/13/2016 Time: 17:20 Bed 9 Private MD: Lurdes Disposition: 07/13/16 18:59 Hospitalization ordered by Demian Mccauley for Inpatient Admission. Preliminary diagnosis are Gastrointestinal hemorrhage, unspecified, Anemia, unspecified. - Bed requested for 4 [place]. - Status is Inpatient Admission. kas2 - Condition is Stable. - Problem is new. - Symptoms are unchanged. Historical: - Allergies: PENICILLINS; - Home Meds: 1. Xarelto 20 mg oral tab 1 tab once daily 2. irbesartan 150 mg oral tab 1 tab once daily 3. ferrous sulfate 140 mg (45 mg iron) Oral TbER twice a day - PMHx: Atrial Fib; AAA; Hypertension; Cancer, Prostate; - PSHx: Hemorrhoidectomy; - Social history: Smoking status: Patient states was never smoker of tobacco. No barriers to communication noted, The patient speaks fluent Hungarian, Speaks appropriately for age. - Family history: Not pertinent. - : The pt / caregiver states he / she is on anticoagulants: Xarelto Home medication list is obtained from pill bottles. - Exposure Risk Screening:: None identified. Vital Signs: 07/13 17:22 BP 108 / 61; Pulse 96; Resp 18 S; Temp 97.3(O); Pulse Ox 99% on R/A; Weight 92.53 kg / gr2 203.99 lbs (R); Height 6 ft. 1 in. (185.42 cm) (R); Pain 3/10; 18:04 BP 139 / 65 (auto/); kas2 18:04 Pulse 84 MON; Pulse Ox 97% ; kas2 18:10 BP 139 / 65 LA Supine (auto/); Pulse 88; jjr 18:11 BP 87 / 58 LA Sitting (auto/); Pulse 109; jjr 18:20 BP 119 / 67 (auto/); jjr 18:20 Pulse 86 MON; Pulse Ox 98% ; jjr 18:34 Pulse 86 MON; Resp 18; Pulse Ox 97% on R/A; jjr 18:35 BP 126 / 60 (auto/); jjr 18:50 BP 121 / 55 (auto/); jjr 18:50 Pulse 80 MON; Pulse Ox 98% ; jjr 19:20 BP 118 / 59 (auto/); kas2 19:20 Pulse 88 MON; Pulse Ox 97% ; kas2 19:36 BP 133 / 61 (auto/); kas2 19:36 Pulse 96 MON; Pulse Ox 98% ; kas2 19:45 BP 133 / 61; Pulse 84; Resp 18; Temp 98.1(O); Pulse Ox 97% on R/A; Pain 0/10; kas2 19:50 BP 158 / 70 (auto/); kas2 19:50 Pulse 92 MON; Pulse Ox 98% ; kas2 19:58 BP 159 / 75 (auto/); kas2 19:58 Pulse 94 MON; Pulse Ox 98% ; kas2 20:00 Resp 18; Temp 98.7(O); Pain 0/10; kas2 20:05 BP 147 / 66 (auto/); kas2 20:05 Pulse 96 MON; Pulse Ox 99% ; kas2 20:20 BP 140 / 57 (auto/); kas2 20:20 Pulse 82 MON; Pulse Ox 97% ; kas2 20:35 BP 129 / 62 (auto/); kas2 20:35 Pulse 82 MON; Pulse Ox 97% ; kas2 20:47 BP 130 / 60 (auto/); kas2 20:47 Pulse 78 MON; Pulse Ox 97% ; kas2 20:50 BP 146 / 64 (auto/); kas2 20:50 Pulse 92 MON; Pulse Ox 96% ; kas2 21:05 BP 149 / 68 (auto/); kas2 21:05 Pulse 82 MON; Pulse Ox 98% ; kas2 21:19 BP 149 / 68; Pulse 88; Resp 18; Temp 97.6(O); Pulse Ox 98% on R/A; Pain 0/10; kas2 21:20 BP 146 / 70 (auto/); kas2 21:20 Pulse 84 MON; Pulse Ox 97% ; kas2 21:24 BP 145 / 68 (auto/); kas2 21:24 Pulse 100 MON; Pulse Ox 98% ; kas2 21:30 BP 145 / 68; Pulse 87; Resp 18; Temp 97.6; Pulse Ox 98% on R/A; Pain 0/10; kas2 21:35 BP 152 / 70 (auto/); kas2 21:35 Pulse 90 MON; Pulse Ox 97% ; kas2 21:43 BP 145 / 67 (auto/); kas2 21:43 Pulse 84 MON; Pulse Ox 98% ; kas2 21:52 BP 145 / 67; Pulse 81; Resp 18; Temp 98.0(O); Pulse Ox 98% on R/A; Pain 0/10; kas2 17:22 Body Mass Index 26.91 (92.53 kg, 185.42 cm) gr2 MDM: 17:42 Entertainment Production Professional/Pulse Ox/q 30 min VS ordered. sd1 17:42 Undress patient appropriately for examination ordered. sd1 17:42 Orthostatic VS ordered. sd1 17:42 IV Saline Lock ordered. sd1 17:42 Basic Metabolic Profile Ordered. EDMS 17:42 CBC with Diff Ordered. EDMS 17:42 Lipase Ordered. EDMS 17:42 Liver Profile Ordered. EDMS 17:42 Prothrombin Time Profile\E\INR Ordered. EDMS 17:43 ECG WITH READING ER PHYS+CARDIAG ordered. EDMS 17:55 pantoprazole 8 mg/hr IV at 10 mL/hr continuous over 72 hrs; 40mg (10mL): withdraw 10mL sd1 from 50mL bag of NS then add protonix ordered. 17:55 pantoprazole 40 mg IV at bolus once ordered. sd1 18:02 BED REQUEST+ADM ordered. EDMS 18:03 Chest, 1 View Ordered. EDMS 18:16 Type and Cross, Packed Cells Ordered. EDMS 18:17 TYPE & SCREEN Ordered. EDMS 18:17 CBC with Diff Reviewed. sd1 18:23 Financial registration complete. gb 18:28 Prothrombin Time Profile\E\INR Reviewed. sd1 18:30 [place] Payment Agreement was scanned into [employer] and attached to record. gb 18:30 Transfuse PRBC's 2 units, ensure PRBCs ordered in lab ordered. sd1 18:39 Basic Metabolic Profile Reviewed. sd1 18:39 Liver Profile Reviewed. sd1 18:39 Lipase Reviewed. sd1 18:39 Chest, 1 View Reviewed. sd1 20:15 NPO DIET ordered. EDMS 20:15 CBC WITH DIFFERENTIAL Ordered. EDMS 20:15 COMPLETE COMPHRENSIVE METABOLI Ordered. EDMS 20:17 HEMOGLOBIN & HEMATOCRIT Ordered. EDMS 20:17 HEMOGLOBIN & HEMATOCRIT Ordered. EDMS 20:17 HEMOGLOBIN & HEMATOCRIT Ordered. EDMS 21:20 Admission / Observation Status ordered. EDMS 21:54 T-Sheet-- Draft Copy was scanned into [employer] and attached to record. klr Administered Medications: 18:13 Drug: pantoprazole 40 mg [pantoprazole 40 mg intravenous solution] Route: IV; Rate: ld5 bolus; Site: right antecubital; 18:19 Drug: pantoprazole 8 mg/hr [pantoprazole 40 mg intravenous solution] Route: IV; Rate: jjr 10 mL/hr; Infused Over: 72 hrs; Site: right antecubital; Signatures: Dispatcher [employer] EDMS Katie Erwin MD MD sd1 Tarsha Calderon Reg Reg gb Barney, Michael B RN RN mlb1 Lashon Belcher RN RN sls1 Radha Davison RN RN kas2 Melida Kwon Jessica RN jjr Dickerson, Laura RN ld5 The chart was reviewed and I authenticate all verbal orders and agree with the evaluation and treatment provided.Corrections: (The following items were deleted from the chart) 18:41 17:43 TYPE & SCREEN+BBK ordered. EDWA EDMS Attachments: 18:30 [facility] Payment Agreement gb 21:54 T-Sheet-- Draft Copy klr Chart Complete MTDD
--- NOTE | 2016-07-15 23:02 | EDDOCDS ---
Physician Documentation [facility] Name: Royal Mahin Coppola Age: 85 yrs Sex: Male : 1930 Arrival Date: 07/13/2016 Time: 17:20 Bed 9 Private MD: Lurdes Disposition: 07/13/16 18:59 Hospitalization ordered by Demian Mccauley for Inpatient Admission. Preliminary diagnosis are Gastrointestinal hemorrhage, unspecified, Anemia, unspecified. - Bed requested for 4 [place]. - Status is Inpatient Admission. kas2 - Condition is Stable. - Problem is new. - Symptoms are unchanged. Historical: - Allergies: PENICILLINS; - Home Meds: 1. Xarelto 20 mg oral tab 1 tab once daily 2. irbesartan 150 mg oral tab 1 tab once daily 3. ferrous sulfate 140 mg (45 mg iron) Oral TbER twice a day - PMHx: Atrial Fib; AAA; Hypertension; Cancer, Prostate; - PSHx: Hemorrhoidectomy; - Social history: Smoking status: Patient states was never smoker of tobacco. No barriers to communication noted, The patient speaks fluent Divehi, Speaks appropriately for age. - Family history: Not pertinent. - : The pt / caregiver states he / she is on anticoagulants: Xarelto Home medication list is obtained from pill bottles. - Exposure Risk Screening:: None identified. Vital Signs: 07/13 17:22 BP 108 / 61; Pulse 96; Resp 18 S; Temp 97.3(O); Pulse Ox 99% on R/A; Weight 92.53 kg / gr2 203.99 lbs (R); Height 6 ft. 1 in. (185.42 cm) (R); Pain 3/10; 18:04 BP 139 / 65 (auto/); kas2 18:04 Pulse 84 MON; Pulse Ox 97% ; kas2 18:10 BP 139 / 65 LA Supine (auto/); Pulse 88; jjr 18:11 BP 87 / 58 LA Sitting (auto/); Pulse 109; jjr 18:20 BP 119 / 67 (auto/); jjr 18:20 Pulse 86 MON; Pulse Ox 98% ; jjr 18:34 Pulse 86 MON; Resp 18; Pulse Ox 97% on R/A; jjr 18:35 BP 126 / 60 (auto/); jjr 18:50 BP 121 / 55 (auto/); jjr 18:50 Pulse 80 MON; Pulse Ox 98% ; jjr 19:20 BP 118 / 59 (auto/); kas2 19:20 Pulse 88 MON; Pulse Ox 97% ; kas2 19:36 BP 133 / 61 (auto/); kas2 19:36 Pulse 96 MON; Pulse Ox 98% ; kas2 19:45 BP 133 / 61; Pulse 84; Resp 18; Temp 98.1(O); Pulse Ox 97% on R/A; Pain 0/10; kas2 19:50 BP 158 / 70 (auto/); kas2 19:50 Pulse 92 MON; Pulse Ox 98% ; kas2 19:58 BP 159 / 75 (auto/); kas2 19:58 Pulse 94 MON; Pulse Ox 98% ; kas2 20:00 Resp 18; Temp 98.7(O); Pain 0/10; kas2 20:05 BP 147 / 66 (auto/); kas2 20:05 Pulse 96 MON; Pulse Ox 99% ; kas2 20:20 BP 140 / 57 (auto/); kas2 20:20 Pulse 82 MON; Pulse Ox 97% ; kas2 20:35 BP 129 / 62 (auto/); kas2 20:35 Pulse 82 MON; Pulse Ox 97% ; kas2 20:47 BP 130 / 60 (auto/); kas2 20:47 Pulse 78 MON; Pulse Ox 97% ; kas2 20:50 BP 146 / 64 (auto/); kas2 20:50 Pulse 92 MON; Pulse Ox 96% ; kas2 21:05 BP 149 / 68 (auto/); kas2 21:05 Pulse 82 MON; Pulse Ox 98% ; kas2 21:19 BP 149 / 68; Pulse 88; Resp 18; Temp 97.6(O); Pulse Ox 98% on R/A; Pain 0/10; kas2 21:20 BP 146 / 70 (auto/); kas2 21:20 Pulse 84 MON; Pulse Ox 97% ; kas2 21:24 BP 145 / 68 (auto/); kas2 21:24 Pulse 100 MON; Pulse Ox 98% ; kas2 21:30 BP 145 / 68; Pulse 87; Resp 18; Temp 97.6; Pulse Ox 98% on R/A; Pain 0/10; kas2 21:35 BP 152 / 70 (auto/); kas2 21:35 Pulse 90 MON; Pulse Ox 97% ; kas2 21:43 BP 145 / 67 (auto/); kas2 21:43 Pulse 84 MON; Pulse Ox 98% ; kas2 21:52 BP 145 / 67; Pulse 81; Resp 18; Temp 98.0(O); Pulse Ox 98% on R/A; Pain 0/10; kas2 17:22 Body Mass Index 26.91 (92.53 kg, 185.42 cm) gr2 MDM: 17:42 Camera Maker/Pulse Ox/q 30 min VS ordered. sd1 17:42 Undress patient appropriately for examination ordered. sd1 17:42 Orthostatic VS ordered. sd1 17:42 IV Saline Lock ordered. sd1 17:42 Basic Metabolic Profile Ordered. EDMS 17:42 CBC with Diff Ordered. EDMS 17:42 Lipase Ordered. EDMS 17:42 Liver Profile Ordered. EDMS 17:42 Prothrombin Time Profile\E\INR Ordered. EDMS 17:43 ECG WITH READING ER PHYS+CARDIAG ordered. EDMS 17:55 pantoprazole 8 mg/hr IV at 10 mL/hr continuous over 72 hrs; 40mg (10mL): withdraw 10mL sd1 from 50mL bag of NS then add protonix ordered. 17:55 pantoprazole 40 mg IV at bolus once ordered. sd1 18:02 BED REQUEST+ADM ordered. EDMS 18:03 Chest, 1 View Ordered. EDMS 18:16 Type and Cross, Packed Cells Ordered. EDMS 18:17 TYPE & SCREEN Ordered. EDMS 18:17 CBC with Diff Reviewed. sd1 18:23 Financial registration complete. gb 18:28 Prothrombin Time Profile\E\INR Reviewed. sd1 18:30 [facility] Payment Agreement was scanned into [employer] and attached to record. gb 18:30 Transfuse PRBC's 2 units, ensure PRBCs ordered in lab ordered. sd1 18:39 Basic Metabolic Profile Reviewed. sd1 18:39 Liver Profile Reviewed. sd1 18:39 Lipase Reviewed. sd1 18:39 Chest, 1 View Reviewed. sd1 20:15 NPO DIET ordered. EDMS 20:15 CBC WITH DIFFERENTIAL Ordered. EDMS 20:15 COMPLETE COMPHRENSIVE METABOLI Ordered. EDMS 20:17 HEMOGLOBIN & HEMATOCRIT Ordered. EDMS 20:17 HEMOGLOBIN & HEMATOCRIT Ordered. EDMS 20:17 HEMOGLOBIN & HEMATOCRIT Ordered. EDMS 21:20 Admission / Observation Status ordered. EDMS 21:54 T-Sheet-- Draft Copy was scanned into [employer] and attached to record. klr Administered Medications: 18:13 Drug: pantoprazole 40 mg [pantoprazole 40 mg intravenous solution] Route: IV; Rate: ld5 bolus; Site: right antecubital; 18:19 Drug: pantoprazole 8 mg/hr [pantoprazole 40 mg intravenous solution] Route: IV; Rate: jjr 10 mL/hr; Infused Over: 72 hrs; Site: right antecubital; Signatures: Dispatcher [employer] EDMS Katie Erwin MD MD sd1 Tarsha Calderon Reg Reg gb Barney, Michael B RN RN mlb1 Lashon Belcher RN RN sls1 Radha Davison RN RN kas2 Melida Kwon Jessica RN jjr Dickerson, Laura RN ld5 The chart was reviewed and I authenticate all verbal orders and agree with the evaluation and treatment provided.Corrections: (The following items were deleted from the chart) 18:41 17:43 TYPE & SCREEN+BBK ordered. EDTN EDMS Attachments: 18:30 [facility] Payment Agreement gb 21:54 T-Sheet-- Draft Copy klr Chart Complete MTDD
--- NOTE | 2016-07-15 23:02 | EDDOCDS ---
Nurse's Notes [facility] Name: Royal Mahin Coppola Age: 85 yrs Sex: Male : 1930 Arrival Date: 07/13/2016 Time: 17:20 Bed 9 Private MD: Lurdes Diagnosis: Gastrointestinal hemorrhage, unspecified;Anemia, unspecified Presentation: 07/13 17:27 Presenting complaint: Patient states: SOB weakness and bloody stools began on Friday mlb1 seen at [facility] on diagnosed with anemia states SOB worse since. Adult Sepsis Screening: The patient does not have new or worsening altered mentation. Patient's respiratory rate is less than 22. Systolic blood pressure is greater than 100. Patient has a qSOFA score of 0- Negative Sepsis Screen. Suicide/Homicide risk assessment- the patient denies having any suicidal and/or homicidal ideations and does not present with any other emotional, behavioral or mental health complaints. Status: Patient is not a shop service technician or dependent. Transition of care: patient was not received from another setting of care. 17:27 Acuity: LAURA Level 3 mlb1 17:27 Method Of Arrival: Walkin/Carried/Asstd mlb1 Triage Assessment: 17:31 General: Appears in no apparent distress, Behavior is appropriate for age, cooperative. mlb1 Pain: Denies pain. Neurological: Reports weakness. Respiratory: Reports shortness of breath. Historical: - Allergies: PENICILLINS; - Home Meds: 1. Xarelto 20 mg oral tab 1 tab once daily 2. irbesartan 150 mg oral tab 1 tab once daily 3. ferrous sulfate 140 mg (45 mg iron) Oral TbER twice a day - PMHx: Atrial Fib; AAA; Hypertension; Cancer, Prostate; - PSHx: Hemorrhoidectomy; - Social history: Smoking status: Patient states was never smoker of tobacco. No barriers to communication noted, The patient speaks fluent Portuguese, Speaks appropriately for age. - Family history: Not pertinent. - : The pt / caregiver states he / she is on anticoagulants: Xarelto Home medication list is obtained from pill bottles. - Exposure Risk Screening:: None identified. Screenin:43 Screening information is obtained from the patient. Fall risk: No risks identified. jjr Assistance ADL's: requires no assistance with activities of daily living. Abuse/DV Screen: The patient / caregiver reports he/she is: not in a situation that causes fear, pain or injury. Nutritional screening: No deficits noted. home support is adequate. 21:49 Advance Directives: Currently, there is no health care proxy. There is no active DNR kas2 order. There is a living will, but a copy is not available at this time. There is no Power of Urban Sociologist. Assessment: 17:42 General: Appears in no apparent distress, well nourished, well groomed, Behavior is jjr appropriate for age. Pain: Denies pain. Neurological: No deficits noted. Cardiovascular: Edema is absent. Respiratory: Airway is patent Respiratory effort is even, unlabored, Respiratory pattern is regular, Breath sounds with rhonchi in right posterior lower lobe Reports shortness of breath on exertion. GI: Abd is soft and non tender X 4 quads. Reports black bowel movements. Derm: Skin is pink, warm & dry. 18:33 General: Appears in no apparent distress. Pain: Denies pain. Neurological: No deficits jjr noted. Cardiovascular: Rhythm is sinus rhythm. Respiratory: Airway is patent Respiratory effort is even, unlabored, Respiratory pattern is regular. Derm: Skin is pink, warm & dry. 18:59 General: Verbal report given by Gladis Morris RN. Assumed care of patient at this time.. kas2 19:45 General: 1st unit of PRBC's initiated. Patient resting in bed. Denies pain or kas2 discomfort at this time. No apparent distress noted. Call bronson within reach. Will continue to monitor.. 19:49 Pain: Denies pain. Neurological: No deficits noted. Level of Consciousness is awake, kas2 alert, Oriented to person, place, time. Cardiovascular: Capillary refill < 3 seconds Heart tones present Edema is absent. Rhythm is sinus rhythm No ectopy. Respiratory: Airway is patent Respiratory effort is even, unlabored, Respiratory pattern is regular, symmetrical, Breath sounds with rhonchi in right posterior lower lobe. GI: Abd is soft and non tender X 4 quads. Derm: Skin is dry, Skin is pink, warm & dry. Skin temperature is warm. 20:59 General: Patient resting in bed watching TV. No apparent distress noted. Denies pain or kas2 discomfort at this time. Appears comfortable. VSS. Call bronson within reach. Will continue to monitor.. 21:18 General: 1st unit of PRBC's finished. No reaction. VSS. Patient continues to be pain kas2 free. No apparent distress. Will continue to monitor.. 21:32 General: 2nd unit of PRBC's initiated. VSS. Patient continues to be pain free. Appears kas2 comfortable. No apparent distress noted. Will continue to monitor.. 21:49 General: Appears in no apparent distress, well nourished, well groomed, Behavior is kas2 appropriate for age. Pain: Denies pain. Neurological: Level of Consciousness is awake, alert, Oriented to person, place, time. Cardiovascular: Capillary refill < 3 seconds Heart tones present Rhythm is sinus rhythm No ectopy. Respiratory: Airway is patent Respiratory effort is even, unlabored, Respiratory pattern is regular, symmetrical, Breath sounds with rhonchi in right posterior lower lobe. GI: Abd is soft and non tender X 4 quads. Derm: Skin is dry, Skin is pink, warm & dry. Skin temperature is warm. Vital Signs: 17:22 BP 108 / 61; Pulse 96; Resp 18 S; Temp 97.3(O); Pulse Ox 99% on R/A; Weight 92.53 kg gr2 (R); Height 6 ft. 1 in. (185.42 cm) (R); Pain 3/10; 18:04 BP 139 / 65 (auto/); kas2 18:04 Pulse 84 MON; Pulse Ox 97% ; kas2 18:10 BP 139 / 65 LA Supine (auto/); Pulse 88; jjr 18:11 BP 87 / 58 LA Sitting (auto/); Pulse 109; jjr 18:20 BP 119 / 67 (auto/); jjr 18:20 Pulse 86 MON; Pulse Ox 98% ; jjr 18:34 Pulse 86 MON; Resp 18; Pulse Ox 97% on R/A; jjr 18:35 BP 126 / 60 (auto/); jjr 18:50 BP 121 / 55 (auto/); jjr 18:50 Pulse 80 MON; Pulse Ox 98% ; jjr 19:20 BP 118 / 59 (auto/); kas2 19:20 Pulse 88 MON; Pulse Ox 97% ; kas2 19:36 BP 133 / 61 (auto/); kas2 19:36 Pulse 96 MON; Pulse Ox 98% ; kas2 19:45 BP 133 / 61; Pulse 84; Resp 18; Temp 98.1(O); Pulse Ox 97% on R/A; Pain 0/10; kas2 19:50 BP 158 / 70 (auto/); kas2 19:50 Pulse 92 MON; Pulse Ox 98% ; kas2 19:58 BP 159 / 75 (auto/); kas2 19:58 Pulse 94 MON; Pulse Ox 98% ; kas2 20:00 Resp 18; Temp 98.7(O); Pain 0/10; kas2 20:05 BP 147 / 66 (auto/); kas2 20:05 Pulse 96 MON; Pulse Ox 99% ; kas2 20:20 BP 140 / 57 (auto/); kas2 20:20 Pulse 82 MON; Pulse Ox 97% ; kas2 20:35 BP 129 / 62 (auto/); kas2 20:35 Pulse 82 MON; Pulse Ox 97% ; kas2 20:47 BP 130 / 60 (auto/); kas2 20:47 Pulse 78 MON; Pulse Ox 97% ; kas2 20:50 BP 146 / 64 (auto/); kas2 20:50 Pulse 92 MON; Pulse Ox 96% ; kas2 21:05 BP 149 / 68 (auto/); kas2 21:05 Pulse 82 MON; Pulse Ox 98% ; kas2 21:19 BP 149 / 68; Pulse 88; Resp 18; Temp 97.6(O); Pulse Ox 98% on R/A; Pain 0/10; kas2 21:20 BP 146 / 70 (auto/); kas2 21:20 Pulse 84 MON; Pulse Ox 97% ; kas2 21:24 BP 145 / 68 (auto/); kas2 21:24 Pulse 100 MON; Pulse Ox 98% ; kas2 21:30 BP 145 / 68; Pulse 87; Resp 18; Temp 97.6; Pulse Ox 98% on R/A; Pain 0/10; kas2 21:35 BP 152 / 70 (auto/); kas2 21:35 Pulse 90 MON; Pulse Ox 97% ; kas2 21:43 BP 145 / 67 (auto/); kas2 21:43 Pulse 84 MON; Pulse Ox 98% ; kas2 21:52 BP 145 / 67; Pulse 81; Resp 18; Temp 98.0(O); Pulse Ox 98% on R/A; Pain 0/10; kas2 17:22 Body Mass Index 26.91 (92.53 kg, 185.42 cm) gr2 Vitals: 17:22 Log In Time: July 13, 2016 at 17:22. RN notified that patient meets Red Flag gr2 criteria. ED Course: 17:22 Patient visited by Haley Zavaleta. gr2 17:22 Schurz is Private Physician. gr2 17:22 Patient moved to Waiting gr2 17:25 Patient visited by Haley Zavaleta. gr2 17:25 Patient moved to Pre RCE gr2 17:27 Patient visited by Thaddeus Dougherty, RN. mlb1 17:28 Triage Initiated mlb1 17:32 Patient visited by Thaddeus Dougherty, RN. mlb1 17:32 Gladis Zavaleta, CONRAD is Primary Nurse. mlb1 17:32 Patient moved to 9 mlb1 17:37 Katie Erwin MD is Attending Physician. sd1 17:41 Patient visited by Katie Erwin MD. sd1 17:43 Patient visited by Gladis Zavaleta RN. jjr 17:43 The patient / caregiver is instructed regarding the plan of care and ED course. jjr 17:51 Patient visited by Shubham Davila. jml1 17:51 EKG done. (by ED staff). Reviewed by Katie Erwin MD. jml1 18:03 Basic Metabolic Profile Sent. jjr 18:03 CBC with Diff Sent. jjr 18:03 Lipase Sent. jjr 18:03 Liver Profile Sent. jjr 18:03 Prothrombin Time Profile\E\INR Sent. jjr 18:27 Inserted saline lock: 20 gauge in right in left antecubital area. jjr 18:29 TYPE & SCREEN Sent. rs6 18:29 Type and Cross, Packed Cells Sent. rs6 18:30 [facility] Payment Agreement was scanned into [employer] and attached to record. gb 18:33 Patient visited by Gladis Zavaleta RN. jjr 18:39 Chest, 1 View Returned. EDMS 18:58 Primary Nurse role handed off by Gladis Zavaleta RN jjr 18:58 Radha Davison RN is Primary Nurse. kas2 18:59 Demian Mccauley MD is Hospitalizing Provider. sd1 19:00 Patient visited by Radha Davison RN. kas2 19:53 Patient visited by Radha Davison RN. kas2 20:05 Patient visited by Radha Davison RN. kas2 21:01 Patient visited by Radha Davison RN. kas2 21:20 Patient visited by Radha Davison RN. kas2 21:34 Patient visited by Radha Davison RN. kas2 21:49 No procedures done that require assistance. kas2 21:54 T-Sheet-- Draft Copy was scanned into [employer] and attached to record. klr 21:55 Patient visited by Radha Davison RN. kas2 Administered Medications: 18:13 Drug: pantoprazole 40 mg [pantoprazole 40 mg intravenous solution] Route: IV; Rate: ld5 bolus; Site: right antecubital; 18:19 Drug: pantoprazole 8 mg/hr [pantoprazole 40 mg intravenous solution] Route: IV; Rate: jjr 10 mL/hr; Infused Over: 72 hrs; Site: right antecubital; Order Results: Lab Order: Basic Metabolic Profile; [facility] 07/13/16 18:01 Test: GLUCOSE, FASTING; Value: 121; Range: 83-110; Abnormal: Above high normal; Units: MG/DL; Status: F Test: BLOOD UREA NITROGEN; Value: 38; Range: 7-18; Abnormal: Above high normal; Units: MG/DL; Status: F Test: CREATININE FOR GFR; Value: 1.36; Range: 0.70-1.30; Abnormal: Above high normal; Units: MG/DL; Status: F Test: GLOMERULAR FILTRATION RATE; Value: 53.3; Range: >35; Status: F Test: SODIUM LEVEL; Value: 140; Range: 136-145; Units: MEQ/L; Status: F Test: POTASSIUM SERUM; Value: 4.4; Range: 3.5-5.1; Units: MEQ/L; Status: F Test: CHLORIDE LEVEL; Value: 107; Range: 98-107; Units: MEQ/L; Status: F Test: CARBON DIOXIDE LEVEL; Value: 24; Range: 21-32; Units: MEQ/L; Status: F Test: ANION GAP; Value: 9; Range: 8-16; Units: MEQ/L; Status: F Test: CALCIUM LEVEL; Value: 8.3; Range: 8.8-10.2; Abnormal: Below low normal; Units: MG/DL; Status: F Test Note: ; Units are mL/min/1.73 m2 Chronic Kidney Disease Staging per NKF: Stage I & II GFR >=60 Normal to Mildly Decreased Stage III GFR 30-59 Moderately Decreased Stage IV GFR 15-29 Severely Decreased Stage V GFR <15 Very Little GFR Left ESRD GFR <15 on TREATING INSPECTOR Lab Order: CBC with Diff; SPEC'[facility] 07/13/16 18:01 Test: WHITE BLOOD COUNT; Value: 10.6; Range: 4.0-10.0; Abnormal: Above high normal; Units: K/mm3; Status: F Test: RED BLOOD COUNT; Value: 2.78; Range: 4.30-6.10; Abnormal: Below low normal; Units: M/mm3; Status: F Test: HEMOGLOBIN; Value: 7.1; Range: 14.0-18.0; Abnormal: Below low normal; Units: g/dl; Status: F Test: HEMATOCRIT; Value: 22.7; Range: 42.0-52.0; Abnormal: Below low normal; Units: %; Status: F Test: MEAN CORPUSCULAR VOLUME; Value: 81.7; Range: 80.0-96.0; Units: fl; Status: F Test: MEAN CORPUSCULAR HEMOGLOBIN; Value: 25.4; Range: 27.0-33.0; Abnormal: Below low normal; Units: pg; Status: F Test: MEAN CORPUSCULAR HGB CONC; Value: 31.1; Range: 32.0-36.5; Abnormal: Below low normal; Units: g/dl; Status: F Test: RED CELL DISTRIBUTION WIDTH; Value: 16.4; Range: 11.5-14.5; Abnormal: Above high normal; Units: %; Status: F Test: PLATELET COUNT, AUTOMATED; Value: 201; Range: 150-450; Units: k/mm3; Status: F Test: NEUTROPHILS %; Value: 71.9; Range: 36.0-66.0; Abnormal: Above high normal; Units: %; Status: F Test: LYMPH %; Value: 16.8; Range: 24.0-44.0; Abnormal: Below low normal; Units: %; Status: F Test: MONO %; Value: 7.3; Range: 0.0-5.0; Abnormal: Above high normal; Units: %; Status: F Test: EOS %; Value: 1.2; Range: 0.0-3.0; Units: %; Status: F Test: BASO %; Value: 0.3; Range: 0.0-1.0; Units: %; Status: F Test: LARGE UNSTAINED CELL %; Value: 2.4; Range: 0.0-4.0; Units: %; Status: F Test: NEUTROPHILS #; Value: 7.7; Range: 1.8-7.7; Units: K/mm3; Status: F Test: LYMPH #; Value: 1.8; Range: 1.5-4.5; Units: K/mm3; Status: F Test: MONO #; Value: 0.8; Range: 0.0-0.8; Units: K/mm3; Status: F Test: EOS #; Value: 0.1; Range: 0.0-0.50; Units: K/mm3; Status: F Test: BASO #; Value: 0.0; Range: 0.0-0.2; Units: K/mm3; Status: F Test: LARGE UNSTAINED CELL #; Value: 0.3; Range: 0.0-0.4; Units: K/mm3; Status: F Lab Order: Lipase; [facility] 07/13/16 18:01 Test: LIPASE; Value: 229; Range: 73-393; Units: U/L; Status: F Lab Order: Liver Profile; [facility] 07/13/16 18:01 Test: AST/SGOT; Value: 16; Range: 15-37; Units: U/L; Status: F Test: ALT/SGPT; Value: 22; Range: 12-78; Units: U/L; Status: F Test: ALKALINE PHOSPHATASE; Value: 65; Range: 45-117; Units: U/L; Status: F Test: BILIRUBIN,TOTAL; Value: 0.2; Range: 0.2-1.0; Units: MG/DL; Status: F Test: BILIRUBIN,DIRECT; Value: < 0.1; Range: 0.0-0.2; Units: MG/DL; Status: F Test: TOTAL PROTEIN; Value: 6.3; Range: 6.4-8.2; Abnormal: Below low normal; Units: GM/DL; Status: F Test: ALBUMIN; Value: 3.4; Range: 3.2-5.2; Units: GM/DL; Status: F Test: ALBUMIN/GLOBULIN RATIO; Value: 1.17; Range: 1.00-1.93; Status: F Lab Order: Prothrombin Time Profile\E\INR; [facility] 07/13/16 18:01 Test: PROTHROMBIN TIME; Value: 21.0; Range: 12.3-14.5; Abnormal: Above high normal; Units: SECONDS; Status: F Test: INR; Value: 1.80; Status: F Test Note: ; THERAPUTIC HUMAN INR VALUES INDICATIONS NORMAL RANGES PROPHYLAXIS/TREATMENT OF: VENOUS THROMBOSIS 2.0-3.0 PULMONARY EMBOLISM 2.0-3.0 PREVENTION OF SYSTEMIC EMBOLISM FROM: TISSUE HEART VALVES 2.0-3.0 ACUTE MYOCARDIAL INFARCTION 2.0-3.0 VALVULAR HEART DISEASE 2.0-3.0 ATRIAL FIBRILLATION 2.0-3.0 MECHANICAL VALVES(HIGH RISK) 2.5-3.5 RECURRENT MYOCARDIAL INFARCTION 2.5-3.5 Lab Order: TYPE & SCREEN; [facility] 07/13/16 18:01 Test: BLOOD TYPE; Value: O POS; Status: F Test: AB SCREEN (INDIRECT JOLYNN)GEL; Value: NEGATIVE; Status: F Test: IMMEDIATE SPIN CROSSMATCH; Value: [id number] O POSITIVE Compatible? Y; Status: F Test: IMMEDIATE SPIN CROSSMATCH; Value: [id number] O POSITIVE Compatible? Y; Status: F Radiology Order: Chest, 1 View Test: Chest, 1 View REASON FOR EXAMINATION: Shortness of Breath; Clinical: Shortness of breath .; ; Comparison: None .; ; Findings:; The mediastinum and cardiac silhouette are stable and within normal limits for; portable technique. The lung bernardo are clear without acute consolidation,; effusion, or pneumothorax. Skeletal structures are intact.; ; Impression:; Normal portable chest x-ray; ; ; Signed by; Chu Espinoza MD 07/13/2016 06:20 P; Outcome: 18:59 Decision to Hospitalize by Provider. sd1 21:48 Discharge Assessment: patient administered narcotics - no. kas2 21:49 No special radiology studies were completed. kas2 22:00 The following High Risk Discharge criteria are identified: None. Admitted to Med/Surg kas2 accompanied by nurse, accompanied by tech, via stretcher, with chart. Condition: good Condition: stable Condition: improved. Property :Personal belongings accompany Pt. 22:01 Patient left the ED. [facility] Signatures: Dispatcher [employer] EDOH Katie Erwin MD MD sd1 Tarsha Calderon, Reg Reg sushma Dougherty, Thaddeus Rojo RN RN mlb1 Gladis Zavaleta RN RN jshanikar Destiny BrysonRN RN [id number] Shubham Davila jml1 Haley Zavaleta 2 Alva Ron, ANIMATION CAMERA OPERATOR ANIMATION CAMERA OPERATOR rs6 Radha Davison,RN RN kas2 Melida Kwon Corrections: (The following items were deleted from the chart) 18:41 18:03 TYPE & SCREEN+BBK sent. [facility] EDOH 19:52 19:49 General: Appears in no apparent distress, well nourished, well groomed, Behavior [facility] is appropriate for age, [facility] Chart Complete MTDD
[2016-07-16] VITALS: BP 135/61
[2016-07-16] MEDS: PANTOPRAZOLE SODIUM 40 MG in D5W MINI-BAG PLUS 50 ML IV SCH ×6 (00:22→20:18)
[2016-07-16] MEDS: NS 1,000 ML IV SCH ×2 (05:48→21:37)
[2016-07-16 06:00] VITALS: BP 138/68
[2016-07-16 06:19] LABS: BASO % 0.4 % (0.0-1.0); EOS # 0.3 K/mm3 (0.0-0.50); LARGE UNSTAINED CELL # 0.2 K/mm3 (0.0-0.4); LYMPH # 1.6 K/mm3 (1.5-4.5); MEAN CORPUSCULAR HEMOGLOBIN 28.4 pg (27.0-33.0); MEAN CORPUSCULAR HGB CONC 33.3 g/dl (32.0-36.5); MEAN CORPUSCULAR VOLUME 85.2 fl (80.0-96.0); MONO # 0.7 K/mm3 (0.0-0.8); MONO % 9.3 % (0.0-5.0); NEUTROPHILS # 4.8 K/mm3 (1.8-7.7); NEUTROPHILS % 62.3 % (36.0-66.0); PLATELET COUNT, AUTOMATED 141 k/mm3 (150-450); RED CELL DISTRIBUTION WIDTH 16.5 % (11.5-14.5); WHITE BLOOD COUNT 7.6 K/mm3 (4.0-10.0)
[2016-07-16 06:39] LABS: ALBUMIN 2.7 GM/DL (3.2-5.2); ALBUMIN/GLOBULIN RATIO 1.29 (1.00-1.93); BILIRUBIN,TOTAL 0.6 MG/DL (0.2-1.0); CALCIUM LEVEL 7.7 MG/DL (8.8-10.2); CREATININE FOR GFR 1.26 MG/DL (0.70-1.30); GLOMERULAR FILTRATION RATE 58.2 (>35); POTASSIUM SERUM 3.4 MEQ/L (3.5-5.1); TOTAL PROTEIN 4.8 GM/DL (6.4-8.2)
--- NOTE | 2016-07-16 06:56 | CR ---
DATE OF CONSULTATION: 07/14/2016 CHIEF COMPLAINT: Gastrointestinal bleeding. HISTORY OF PRESENT ILLNESS: The patient is a very pleasant 85-year-old man who has been on a baby aspirin and Xarelto for atrial fibrillation. He has not had any history of stroke or embolic phenomenon. On about July 09, the patient noticed some shortness of breath. He also had noted onset of some dark bowel movements. He noticed that the odor was different. In the emergency department at the [facility] facility he was found to be anemic. He was discharged home on some oral iron. His dark stools continued and he became more short of breath. He presented to the emergency department on July 13 with orthostasis and was found to have a hemoglobin of seven. He was admitted by the hospitalists and has received 4 units of packed red blood cells since admission. With that his blood count has come up from a hematocrit of 23 to a hematocrit of 28 this morning. He no longer feels lightheaded. He has noticed some reddish discoloration to the stool here in the hospital. I was consulted to consider endoscopy. MEDICATIONS: The patient's current medications include irbesartan, pantaprazole, ferrous sulfate as the only scheduled medications. ALLERGIES: REPORTED TO PENICILLIN. PAST SURGICAL HISTORY: His surgical history is significant for a hemorrhoidectomy. PAST SURGICAL HISTORY: 1. Significant for atrial fibrillation. 2. He reportedly has a history of an abdominal aortic aneurysm which is relatively small. 3. He has hypertension. 4. He has prostate cancer which is being watched. SOCIAL HISTORY: The patient lives with his spouse. He has occasional alcohol and denies any smoking. FAMILY HISTORY: Family history is noncontributory. REVIEW OF SYSTEMS: Review of systems shows no recent chest pain, palpitations, shortness of breath until this episode, wheezing or sputum production. He denies any prior history of bleeding other than some occasional spotting of red blood from his hemorrhoids. The remainder of the review of systems is unremarkable. PHYSICAL EXAMINATION: GENERAL: Exam reveals a pleasant, even jovial man lying in his bed watching TV and visiting with family. VITAL SIGNS: His most recent vital signs showed temperature of 97.7, pulse of 79 , respirations of 18 and a blood pressure of 134/59. He has been nothing by mouth but is receiving intravenous (IV) fluid. SKIN: His skin is warm and dry. Skin turgor is good. Mucous membranes are moist. NECK: Neck is supple. He does have a bruit in his neck which appears to represent a transmitted heart murmur. HEART: Heart exam shows what is today a regular rhythm with a 2 to 3/6 murmur. LUNGS: The lungs were clear to auscultation bilaterally. ABDOMEN : The abdomen is perhaps mildly obese but soft and nontender without appreciable mass. EXTREMITIES: Extremities are without edema. He has palpable radial pulses bilaterally. LABORATORY STUDIES: This morning showed a white count of 9.4 with a hemoglobin of 9, hematocrit of 28 and platelet count of 153,000. Differential count shows 67% neutrophils and 20% lymphocytes. Chemistry profile shows sodium of 143, potassium 4.3, chloride 111, CO2 of 24, BUN of 32, creatinine 1.1 and a glucose of 94. He has received 4 units of packed red blood cells. IMPRESSION: 1. He has gastrointestinal bleeding most likely from an upper gastrointestinal (GI) source. Primarily he has complained of melena, though he has noticed some red tinge to his stools since being admitted to the hospital and kept nothing by mouth. 2. Atrial fibrillation. 3. Hypertension. 4. Prostate cancer. PLAN: The patient was counseled for an upper endoscopy. It seems reasonable to me since he has been nothing by mouth to proceed with the upper endoscopy today. If this identifies a bleeding source then he probably does not need an in-hospital colonoscopy performed. I suspect that we would find an ulcer to account for his bleeding but we will have to wait for the endoscopy to see. He was counseled for the procedure to include risks and possible benefits. He desires to proceed with the upper endoscopy. He will be scheduled to have this today. He was counseled that if we do identify a visible vessel or some other indication of a high likelihood of rebleeding that further interventions such as cautery or injection of epinephrine could be undertaken. He desires to proceed. GISEL
[2016-07-16] MEDS: FERROUS SULFATE 325MG TAB PO SCH ×3 (08:55→20:18)
[2016-07-16] MEDS: IRBESARTAN 150 MG TAB PO SCH ×2 (08:56→09:42)
[2016-07-16 09:00] VITALS: BP 138/68
[2016-07-16 11:44] VITALS: BP 141/64
--- NOTE | 2016-07-16 12:52 | IPNPDOC ---
Assessment/Plan Date Seen The patient was seen on 07/16/16. Problems Problems: (1) Hemorrhagic disorder due to intrinsic circulating anticoagulants Status: Acute Response to Treatment: Improving Problem Text: due to ASA and xarelto , EGD was negative colonoscopy positive for bleeding hemoglobin stable (2) Acute blood loss anemia Status: Acute Response to Treatment: Stable Problem Text: from acute gi bleed received 4 units of PRBC. (3) GI bleed Status: Acute Response to Treatment: Stable Problem Text: could be related to asa and xarelto treatment. (4) Atrial fibrillation Status: Chronic Problem Text: paroxysmal , now in sinus rhythm. xarelto stopped for gib (5) History of prostate cancer Status: Chronic Problem Text: diagnosed 10 years ago has not required any treatment yet (6) Hypertension Status: Chronic (7) AAA (abdominal aortic aneurysm) Status: Chronic Plan / VTE VTE Prophylaxis Ordered?: Yes Subjective Review of Systems CC/HPI The patient is a 85-year-old male admitted with a reason for visit of Atrial Fibrillation,Gi Bleed. Events since last encounter pt seen and examined, doing well, but states he had an episode of bleeding per rectum overnight, Constitutional: Denies: Chills, Fever, Malaise, Night Sweats, Weakness Objective Physical Examination General Exam: Positive: Alert, No Acute Distress Eye Exam: Positive: Conjunctiva & lids normal, EOMI, PERRLA, Negative: Sclera icteric ENT Exam: Positive: Atraumatic, Mucous membr. moist/pink, Pharynx Normal Neck Exam: Positive: Supple, Negative: JVD, thyromegaly Chest Exam: Positive: Clear to auscultation, Normal air movement Heart Exam: Positive: Murmurs, Normal S1, Normal S2, Rate Normal Abdomen Exam: Positive: Normal bowel sounds, Soft, Negative: Hepatospenomegaly, Tenderness Extremity Exam: Positive: Normal pulses, Negative: Clubbing, Cyanosis, Edema Vital Signs/I&O Vital Signs Date Time Temp Pulse Resp B/P Pulse Ox O2 Delivery O2 Flow Rate FiO2 07/16/16 11:44 97.2 83 18 141/64 96 Room Air 07/15/16 10:54 2 I&O- Last 24 Hours up to 6 AM 07/16/16 05:59 Intake Total 5110 ml Output Total 2900 ml Balance 2210 ml Laboratory Data Labs 24H Laboratory Tests 2 07/16/16 05:32: Blood Urea Nitrogen 14, Creatinine 1.26, Sodium Level 144, Potassium Level 3.4L , Chloride Level 112H, Carbon Dioxide Level 24, Calcium Level 7.7L, Aspartate Amino Transf (AST/SGOT) 21, Alanine Aminotransferase (ALT/SGPT) 18, Alkaline Phosphatase 56, Total Bilirubin 0.6, Total Protein 4.8L, Albumin 2.7L, Albumin/ Globulin Ratio 1.29, Anion Gap 8, White Blood Count 7.6, Red Blood Count 3.26L, Hemoglobin 9.3L, Hematocrit 27.8L, Mean Corpuscular Volume 85.2, Mean Corpuscular Hemoglobin 28.4, Mean Corpuscular Hemoglobin Concent 33.3, Red Cell Distribution Width 16.5H, Platelet Count 141L, Neutrophils (%) (Auto) 62.3, Lymphocytes (%) (Auto) 21.0L, Monocytes (%) (Auto) 9.3H, Eosinophils (%) (Auto) 4.0H, Basophils (%) (Auto) 0.4, Neutrophils # (Auto) 4.8, Lymphocytes # (Auto) 1.6, Monocytes # (Auto) 0.7, Eosinophils # (Auto) 0.3, Basophils # (Auto) 0.0, Glomerular Filtration Rate 58.2, Large Unclassified Cells # 0.2, Large Unclassified Cells % 3.0 CBC/BMP Laboratory Tests 07/16/16 05:32 Calcium Level 7.7 L, Aspartate Amino Transf (AST/SGOT) 21, Alanine Aminotransferase (ALT/SGPT) 18, Alkaline Phosphatase 56, Total Bilirubin 0.6, Total Protein 4.8 L, Albumin 2.7 L, Red Blood Count 3.26 L, Mean Corpuscular Volume 85.2, Mean Corpuscular Hemoglobin 28.4, Mean Corpuscular Hemoglobin Concent 33.3, Red Cell Distribution Width 16.5 H, Neutrophils (%) (Auto) 62.3, Lymphocytes (%) (Auto) 21.0 L, Monocytes (%) (Auto) 9.3 H, Eosinophils (%) (Auto ) 4.0 H, Basophils (%) (Auto) 0.4, Neutrophils # (Auto) 4.8, Lymphocytes # (Auto ) 1.6, Monocytes # (Auto) 0.7, Eosinophils # (Auto) 0.3, Basophils # (Auto) 0.0 TIGRE MARTI DO Jul 16, 2016 12:52
--- NOTE | 2016-07-16 14:33 | EDDOCDS ---
Physician Documentation [facility] Name: Royal Mahin Coppola Age: 85 yrs Sex: Male : 1930 Arrival Date: 07/13/2016 Time: 17:20 Bed 9 Private MD: Lurdes Disposition: 07/13/16 18:59 Hospitalization ordered by Demian Mccauley for Inpatient Admission. Preliminary diagnosis are Gastrointestinal hemorrhage, unspecified, Anemia, unspecified. - Bed requested for 4 [place]. - Status is Inpatient Admission. kas2 - Condition is Stable. - Problem is new. - Symptoms are unchanged. Historical: - Allergies: PENICILLINS; - Home Meds: 1. Xarelto 20 mg oral tab 1 tab once daily 2. irbesartan 150 mg oral tab 1 tab once daily 3. ferrous sulfate 140 mg (45 mg iron) Oral TbER twice a day - PMHx: Atrial Fib; AAA; Hypertension; Cancer, Prostate; - PSHx: Hemorrhoidectomy; - Social history: Smoking status: Patient states was never smoker of tobacco. No barriers to communication noted, The patient speaks fluent Khmer, Speaks appropriately for age. - Family history: Not pertinent. - : The pt / caregiver states he / she is on anticoagulants: Xarelto Home medication list is obtained from pill bottles. - Exposure Risk Screening:: None identified. Vital Signs: 07/13 17:22 BP 108 / 61; Pulse 96; Resp 18 S; Temp 97.3(O); Pulse Ox 99% on R/A; Weight 92.53 kg / gr2 203.99 lbs (R); Height 6 ft. 1 in. (185.42 cm) (R); Pain 3/10; 18:04 BP 139 / 65 (auto/); kas2 18:04 Pulse 84 MON; Pulse Ox 97% ; kas2 18:10 BP 139 / 65 LA Supine (auto/); Pulse 88; jjr 18:11 BP 87 / 58 LA Sitting (auto/); Pulse 109; jjr 18:20 BP 119 / 67 (auto/); jjr 18:20 Pulse 86 MON; Pulse Ox 98% ; jjr 18:34 Pulse 86 MON; Resp 18; Pulse Ox 97% on R/A; jjr 18:35 BP 126 / 60 (auto/); jjr 18:50 BP 121 / 55 (auto/); jjr 18:50 Pulse 80 MON; Pulse Ox 98% ; jjr 19:20 BP 118 / 59 (auto/); kas2 19:20 Pulse 88 MON; Pulse Ox 97% ; kas2 19:36 BP 133 / 61 (auto/); kas2 19:36 Pulse 96 MON; Pulse Ox 98% ; kas2 19:45 BP 133 / 61; Pulse 84; Resp 18; Temp 98.1(O); Pulse Ox 97% on R/A; Pain 0/10; kas2 19:50 BP 158 / 70 (auto/); kas2 19:50 Pulse 92 MON; Pulse Ox 98% ; kas2 19:58 BP 159 / 75 (auto/); kas2 19:58 Pulse 94 MON; Pulse Ox 98% ; kas2 20:00 Resp 18; Temp 98.7(O); Pain 0/10; kas2 20:05 BP 147 / 66 (auto/); kas2 20:05 Pulse 96 MON; Pulse Ox 99% ; kas2 20:20 BP 140 / 57 (auto/); kas2 20:20 Pulse 82 MON; Pulse Ox 97% ; kas2 20:35 BP 129 / 62 (auto/); kas2 20:35 Pulse 82 MON; Pulse Ox 97% ; kas2 20:47 BP 130 / 60 (auto/); kas2 20:47 Pulse 78 MON; Pulse Ox 97% ; kas2 20:50 BP 146 / 64 (auto/); kas2 20:50 Pulse 92 MON; Pulse Ox 96% ; kas2 21:05 BP 149 / 68 (auto/); kas2 21:05 Pulse 82 MON; Pulse Ox 98% ; kas2 21:19 BP 149 / 68; Pulse 88; Resp 18; Temp 97.6(O); Pulse Ox 98% on R/A; Pain 0/10; kas2 21:20 BP 146 / 70 (auto/); kas2 21:20 Pulse 84 MON; Pulse Ox 97% ; kas2 21:24 BP 145 / 68 (auto/); kas2 21:24 Pulse 100 MON; Pulse Ox 98% ; kas2 21:30 BP 145 / 68; Pulse 87; Resp 18; Temp 97.6; Pulse Ox 98% on R/A; Pain 0/10; kas2 21:35 BP 152 / 70 (auto/); kas2 21:35 Pulse 90 MON; Pulse Ox 97% ; kas2 21:43 BP 145 / 67 (auto/); kas2 21:43 Pulse 84 MON; Pulse Ox 98% ; kas2 21:52 BP 145 / 67; Pulse 81; Resp 18; Temp 98.0(O); Pulse Ox 98% on R/A; Pain 0/10; kas2 17:22 Body Mass Index 26.91 (92.53 kg, 185.42 cm) gr2 MDM: 17:42 Inventory Accountant/Pulse Ox/q 30 min VS ordered. sd1 17:42 Undress patient appropriately for examination ordered. sd1 17:42 Orthostatic VS ordered. sd1 17:42 IV Saline Lock ordered. sd1 17:42 Basic Metabolic Profile Ordered. EDMS 17:42 CBC with Diff Ordered. EDMS 17:42 Lipase Ordered. EDMS 17:42 Liver Profile Ordered. EDMS 17:42 Prothrombin Time Profile\E\INR Ordered. EDMS 17:43 ECG WITH READING ER PHYS+CARDIAG ordered. EDMS 17:55 pantoprazole 8 mg/hr IV at 10 mL/hr continuous over 72 hrs; 40mg (10mL): withdraw 10mL sd1 from 50mL bag of NS then add protonix ordered. 17:55 pantoprazole 40 mg IV at bolus once ordered. sd1 18:02 BED REQUEST+ADM ordered. EDMS 18:03 Chest, 1 View Ordered. EDMS 18:16 Type and Cross, Packed Cells Ordered. EDMS 18:17 TYPE & SCREEN Ordered. EDMS 18:17 CBC with Diff Reviewed. sd1 18:23 Financial registration complete. gb 18:28 Prothrombin Time Profile\E\INR Reviewed. sd1 18:30 [facility] [place] into [employer] and attached to record. gb 18:30 Transfuse PRBC's 2 units, ensure PRBCs ordered in lab ordered. sd1 18:39 Basic Metabolic Profile Reviewed. sd1 18:39 Liver Profile Reviewed. sd1 18:39 Lipase Reviewed. sd1 18:39 Chest, 1 View Reviewed. sd1 20:15 NPO DIET ordered. EDMS 20:15 CBC WITH DIFFERENTIAL Ordered. EDMS 20:15 COMPLETE COMPHRENSIVE METABOLI Ordered. EDMS 20:17 HEMOGLOBIN & HEMATOCRIT Ordered. EDMS 20:17 HEMOGLOBIN & HEMATOCRIT Ordered. EDMS 20:17 HEMOGLOBIN & HEMATOCRIT Ordered. EDMS 21:20 Admission / Observation Status ordered. EDMS 21:54 T-Sheet-- Draft Copy was scanned into [employer] and attached to record. klr Administered Medications: 18:13 Drug: pantoprazole 40 mg [pantoprazole 40 mg intravenous solution] Route: IV; Rate: ld5 bolus; Site: right antecubital; 18:19 Drug: pantoprazole 8 mg/hr [pantoprazole 40 mg intravenous solution] Route: IV; Rate: jjr 10 mL/hr; Infused Over: 72 hrs; Site: right antecubital; Signatures: Dispatcher [employer] EDMS Katie Erwin MD MD sd1 Tarsha Calderon Reg Reg gb Barney, Michael B RN RN mlb1 Lashon Belcher RN RN sls1 Radha Davison RN RN kas2 Melida Kwon Jessica RN jjr Dickerson, Laura RN ld5 The chart was reviewed and I authenticate all verbal orders and agree with the evaluation and treatment provided.Corrections: (The following items were deleted from the chart) 18:41 17:43 TYPE & SCREEN+BBK ordered. EDCT EDMS Attachments: 18:30 [facility] [place] Agreement gb 21:54 T-Sheet-- Draft Copy klr Chart Complete MTDD
--- NOTE | 2016-07-16 14:33 | EDDOCDS ---
Physician Documentation [facility] Name: Royal Mahin Coppola Age: 85 yrs Sex: Male : 1930 Arrival Date: 07/13/2016 Time: 17:20 Bed 9 Private MD: Lurdes Disposition: 07/13/16 18:59 Hospitalization ordered by Demian Mccauley for Inpatient Admission. Preliminary diagnosis are Gastrointestinal hemorrhage, unspecified, Anemia, unspecified. - Bed requested for 4 [place]. - Status is Inpatient Admission. kas2 - Condition is Stable. - Problem is new. - Symptoms are unchanged. Historical: - Allergies: PENICILLINS; - Home Meds: 1. Xarelto 20 mg oral tab 1 tab once daily 2. irbesartan 150 mg oral tab 1 tab once daily 3. ferrous sulfate 140 mg (45 mg iron) Oral TbER twice a day - PMHx: Atrial Fib; AAA; Hypertension; Cancer, Prostate; - PSHx: Hemorrhoidectomy; - Social history: Smoking status: Patient states was never smoker of tobacco. No barriers to communication noted, The patient speaks fluent Tajik, Speaks appropriately for age. - Family history: Not pertinent. - : The pt / caregiver states he / she is on anticoagulants: Xarelto Home medication list is obtained from pill bottles. - Exposure Risk Screening:: None identified. Vital Signs: 07/13 17:22 BP 108 / 61; Pulse 96; Resp 18 S; Temp 97.3(O); Pulse Ox 99% on R/A; Weight 92.53 kg / gr2 203.99 lbs (R); Height 6 ft. 1 in. (185.42 cm) (R); Pain 3/10; 18:04 BP 139 / 65 (auto/); kas2 18:04 Pulse 84 MON; Pulse Ox 97% ; kas2 18:10 BP 139 / 65 LA Supine (auto/); Pulse 88; jjr 18:11 BP 87 / 58 LA Sitting (auto/); Pulse 109; jjr 18:20 BP 119 / 67 (auto/); jjr 18:20 Pulse 86 MON; Pulse Ox 98% ; jjr 18:34 Pulse 86 MON; Resp 18; Pulse Ox 97% on R/A; jjr 18:35 BP 126 / 60 (auto/); jjr 18:50 BP 121 / 55 (auto/); jjr 18:50 Pulse 80 MON; Pulse Ox 98% ; jjr 19:20 BP 118 / 59 (auto/); kas2 19:20 Pulse 88 MON; Pulse Ox 97% ; kas2 19:36 BP 133 / 61 (auto/); kas2 19:36 Pulse 96 MON; Pulse Ox 98% ; kas2 19:45 BP 133 / 61; Pulse 84; Resp 18; Temp 98.1(O); Pulse Ox 97% on R/A; Pain 0/10; kas2 19:50 BP 158 / 70 (auto/); kas2 19:50 Pulse 92 MON; Pulse Ox 98% ; kas2 19:58 BP 159 / 75 (auto/); kas2 19:58 Pulse 94 MON; Pulse Ox 98% ; kas2 20:00 Resp 18; Temp 98.7(O); Pain 0/10; kas2 20:05 BP 147 / 66 (auto/); kas2 20:05 Pulse 96 MON; Pulse Ox 99% ; kas2 20:20 BP 140 / 57 (auto/); kas2 20:20 Pulse 82 MON; Pulse Ox 97% ; kas2 20:35 BP 129 / 62 (auto/); kas2 20:35 Pulse 82 MON; Pulse Ox 97% ; kas2 20:47 BP 130 / 60 (auto/); kas2 20:47 Pulse 78 MON; Pulse Ox 97% ; kas2 20:50 BP 146 / 64 (auto/); kas2 20:50 Pulse 92 MON; Pulse Ox 96% ; kas2 21:05 BP 149 / 68 (auto/); kas2 21:05 Pulse 82 MON; Pulse Ox 98% ; kas2 21:19 BP 149 / 68; Pulse 88; Resp 18; Temp 97.6(O); Pulse Ox 98% on R/A; Pain 0/10; kas2 21:20 BP 146 / 70 (auto/); kas2 21:20 Pulse 84 MON; Pulse Ox 97% ; kas2 21:24 BP 145 / 68 (auto/); kas2 21:24 Pulse 100 MON; Pulse Ox 98% ; kas2 21:30 BP 145 / 68; Pulse 87; Resp 18; Temp 97.6; Pulse Ox 98% on R/A; Pain 0/10; kas2 21:35 BP 152 / 70 (auto/); kas2 21:35 Pulse 90 MON; Pulse Ox 97% ; kas2 21:43 BP 145 / 67 (auto/); kas2 21:43 Pulse 84 MON; Pulse Ox 98% ; kas2 21:52 BP 145 / 67; Pulse 81; Resp 18; Temp 98.0(O); Pulse Ox 98% on R/A; Pain 0/10; kas2 17:22 Body Mass Index 26.91 (92.53 kg, 185.42 cm) gr2 MDM: 17:42 Weight Loss Counselor/Pulse Ox/q 30 min VS ordered. sd1 17:42 Undress patient appropriately for examination ordered. sd1 17:42 Orthostatic VS ordered. sd1 17:42 IV Saline Lock ordered. sd1 17:42 Basic Metabolic Profile Ordered. EDMS 17:42 CBC with Diff Ordered. EDMS 17:42 Lipase Ordered. EDMS 17:42 Liver Profile Ordered. EDMS 17:42 Prothrombin Time Profile\E\INR Ordered. EDMS 17:43 ECG WITH READING ER PHYS+CARDIAG ordered. EDMS 17:55 pantoprazole 8 mg/hr IV at 10 mL/hr continuous over 72 hrs; 40mg (10mL): withdraw 10mL sd1 from 50mL bag of NS then add protonix ordered. 17:55 pantoprazole 40 mg IV at bolus once ordered. sd1 18:02 BED REQUEST+ADM ordered. EDMS 18:03 Chest, 1 View Ordered. EDMS 18:16 Type and Cross, Packed Cells Ordered. EDMS 18:17 TYPE & SCREEN Ordered. EDMS 18:17 CBC with Diff Reviewed. sd1 18:23 Financial registration complete. gb 18:28 Prothrombin Time Profile\E\INR Reviewed. sd1 18:30 [facility] [place] was [place] into [employer] and attached to record. gb 18:30 Transfuse PRBC's 2 units, ensure PRBCs ordered in lab ordered. sd1 18:39 Basic Metabolic Profile Reviewed. sd1 18:39 Liver Profile Reviewed. sd1 18:39 Lipase Reviewed. sd1 18:39 Chest, 1 View Reviewed. sd1 20:15 NPO DIET ordered. EDMS 20:15 CBC WITH DIFFERENTIAL Ordered. EDMS 20:15 COMPLETE COMPHRENSIVE METABOLI Ordered. EDMS 20:17 HEMOGLOBIN & HEMATOCRIT Ordered. EDMS 20:17 HEMOGLOBIN & HEMATOCRIT Ordered. EDMS 20:17 HEMOGLOBIN & HEMATOCRIT Ordered. EDMS 21:20 Admission / Observation Status ordered. EDMS 21:54 T-Sheet-- Draft Copy was scanned into [employer] and attached to record. klr Administered Medications: 18:13 Drug: pantoprazole 40 mg [pantoprazole 40 mg intravenous solution] Route: IV; Rate: ld5 bolus; Site: right antecubital; 18:19 Drug: pantoprazole 8 mg/hr [pantoprazole 40 mg intravenous solution] Route: IV; Rate: jjr 10 mL/hr; Infused Over: 72 hrs; Site: right antecubital; Signatures: Dispatcher [employer] EDMS Katie Erwin MD MD sd1 Tarsha Calderon Reg Reg gb Barney, Michael B RN RN mlb1 Lashon Belcher RN RN sls1 Radha Davison RN RN kas2 Melida Kwon Jessica RN jjr Dickerson, Laura RN ld5 The chart was reviewed and I authenticate all verbal orders and agree with the evaluation and treatment provided.Corrections: (The following items were deleted from the chart) 18:41 17:43 TYPE & SCREEN+BBK ordered. EDKY EDMS Attachments: 18:30 [facility] [place] gb 21:54 T-Sheet-- Draft Copy klr Chart Complete MTDD
--- NOTE | 2016-07-16 14:33 | EDDOCDS ---
Nurse's Notes [facility] Name: Royal Mahin Coppola Age: 85 yrs Sex: Male : 1930 Arrival Date: 07/13/2016 Time: 17:20 Bed 9 Private MD: Lurdes Diagnosis: Gastrointestinal hemorrhage, unspecified;Anemia, unspecified Presentation: 07/13 17:27 Presenting complaint: Patient states: SOB weakness and bloody stools began on Friday mlb1 seen at [facility] on diagnosed with anemia states SOB worse since. Adult Sepsis Screening: The patient does not have new or worsening altered mentation. Patient's respiratory rate is less than 22. Systolic blood pressure is greater than 100. Patient has a qSOFA score of 0- Negative Sepsis Screen. Suicide/Homicide risk assessment- the patient denies having any suicidal and/or homicidal ideations and does not present with any other emotional, behavioral or mental health complaints. Status: Patient is not a supervisor contact and service clerks or dependent. Transition of care: patient was not received from another setting of care. 17:27 Acuity: LAURA Level 3 mlb1 17:27 Method Of Arrival: Walkin/Carried/Asstd mlb1 Triage Assessment: 17:31 General: Appears in no apparent distress, Behavior is appropriate for age, cooperative. mlb1 Pain: Denies pain. Neurological: Reports weakness. Respiratory: Reports shortness of breath. Historical: - Allergies: PENICILLINS; - Home Meds: 1. Xarelto 20 mg oral tab 1 tab once daily 2. irbesartan 150 mg oral tab 1 tab once daily 3. ferrous sulfate 140 mg (45 mg iron) Oral TbER twice a day - PMHx: Atrial Fib; AAA; Hypertension; Cancer, Prostate; - PSHx: Hemorrhoidectomy; - Social history: Smoking status: Patient states was never smoker of tobacco. No barriers to communication noted, The patient speaks fluent Tajik, Speaks appropriately for age. - Family history: Not pertinent. - : The pt / caregiver states he / she is on anticoagulants: Xarelto Home medication list is obtained from pill bottles. - Exposure Risk Screening:: None identified. Screenin:43 Screening information is obtained from the patient. Fall risk: No risks identified. jjr Assistance ADL's: requires no assistance with activities of daily living. Abuse/DV Screen: The patient / caregiver reports he/she is: not in a situation that causes fear, pain or injury. Nutritional screening: No deficits noted. home support is adequate. 21:49 Advance Directives: Currently, there is no health care proxy. There is no active DNR kas2 order. There is a living will, but a copy is not available at this time. There is no Power of Hand Gluer And Slicer. Assessment: 17:42 General: Appears in no apparent distress, well nourished, well groomed, Behavior is jjr appropriate for age. Pain: Denies pain. Neurological: No deficits noted. Cardiovascular: Edema is absent. Respiratory: Airway is patent Respiratory effort is even, unlabored, Respiratory pattern is regular, Breath sounds with rhonchi in right posterior lower lobe Reports shortness of breath on exertion. GI: Abd is soft and non tender X 4 quads. Reports black bowel movements. Derm: Skin is pink, warm & dry. 18:33 General: Appears in no apparent distress. Pain: Denies pain. Neurological: No deficits jjr noted. Cardiovascular: Rhythm is sinus rhythm. Respiratory: Airway is patent Respiratory effort is even, unlabored, Respiratory pattern is regular. Derm: Skin is pink, warm & dry. 18:59 General: Verbal report given by Gladis Morris RN. Assumed care of patient at this time.. kas2 19:45 General: 1st unit of PRBC's initiated. Patient resting in bed. Denies pain or kas2 discomfort at this time. No apparent distress noted. Call bronson within reach. Will continue to monitor.. 19:49 Pain: Denies pain. Neurological: No deficits noted. Level of Consciousness is awake, kas2 alert, Oriented to person, place, time. Cardiovascular: Capillary refill < 3 seconds Heart tones present Edema is absent. Rhythm is sinus rhythm No ectopy. Respiratory: Airway is patent Respiratory effort is even, unlabored, Respiratory pattern is regular, symmetrical, Breath sounds with rhonchi in right posterior lower lobe. GI: Abd is soft and non tender X 4 quads. Derm: Skin is dry, Skin is pink, warm & dry. Skin temperature is warm. 20:59 General: Patient resting in bed watching TV. No apparent distress noted. Denies pain or kas2 discomfort at this time. Appears comfortable. VSS. Call bronson within reach. Will continue to monitor.. 21:18 General: 1st unit of PRBC's finished. No reaction. VSS. Patient continues to be pain kas2 free. No apparent distress. Will continue to monitor.. 21:32 General: 2nd unit of PRBC's initiated. VSS. Patient continues to be pain free. Appears kas2 comfortable. No apparent distress noted. Will continue to monitor.. 21:49 General: Appears in no apparent distress, well nourished, well groomed, Behavior is kas2 appropriate for age. Pain: Denies pain. Neurological: Level of Consciousness is awake, alert, Oriented to person, place, time. Cardiovascular: Capillary refill < 3 seconds Heart tones present Rhythm is sinus rhythm No ectopy. Respiratory: Airway is patent Respiratory effort is even, unlabored, Respiratory pattern is regular, symmetrical, Breath sounds with rhonchi in right posterior lower lobe. GI: Abd is soft and non tender X 4 quads. Derm: Skin is dry, Skin is pink, warm & dry. Skin temperature is warm. Vital Signs: 17:22 BP 108 / 61; Pulse 96; Resp 18 S; Temp 97.3(O); Pulse Ox 99% on R/A; Weight 92.53 kg gr2 (R); Height 6 ft. 1 in. (185.42 cm) (R); Pain 3/10; 18:04 BP 139 / 65 (auto/); kas2 18:04 Pulse 84 MON; Pulse Ox 97% ; kas2 18:10 BP 139 / 65 LA Supine (auto/); Pulse 88; jjr 18:11 BP 87 / 58 LA Sitting (auto/); Pulse 109; jjr 18:20 BP 119 / 67 (auto/); jjr 18:20 Pulse 86 MON; Pulse Ox 98% ; jjr 18:34 Pulse 86 MON; Resp 18; Pulse Ox 97% on R/A; jjr 18:35 BP 126 / 60 (auto/); jjr 18:50 BP 121 / 55 (auto/); jjr 18:50 Pulse 80 MON; Pulse Ox 98% ; jjr 19:20 BP 118 / 59 (auto/); kas2 19:20 Pulse 88 MON; Pulse Ox 97% ; kas2 19:36 BP 133 / 61 (auto/); kas2 19:36 Pulse 96 MON; Pulse Ox 98% ; kas2 19:45 BP 133 / 61; Pulse 84; Resp 18; Temp 98.1(O); Pulse Ox 97% on R/A; Pain 0/10; kas2 19:50 BP 158 / 70 (auto/); kas2 19:50 Pulse 92 MON; Pulse Ox 98% ; kas2 19:58 BP 159 / 75 (auto/); kas2 19:58 Pulse 94 MON; Pulse Ox 98% ; kas2 20:00 Resp 18; Temp 98.7(O); Pain 0/10; kas2 20:05 BP 147 / 66 (auto/); kas2 20:05 Pulse 96 MON; Pulse Ox 99% ; kas2 20:20 BP 140 / 57 (auto/); kas2 20:20 Pulse 82 MON; Pulse Ox 97% ; kas2 20:35 BP 129 / 62 (auto/); kas2 20:35 Pulse 82 MON; Pulse Ox 97% ; kas2 20:47 BP 130 / 60 (auto/); kas2 20:47 Pulse 78 MON; Pulse Ox 97% ; kas2 20:50 BP 146 / 64 (auto/); kas2 20:50 Pulse 92 MON; Pulse Ox 96% ; kas2 21:05 BP 149 / 68 (auto/); kas2 21:05 Pulse 82 MON; Pulse Ox 98% ; kas2 21:19 BP 149 / 68; Pulse 88; Resp 18; Temp 97.6(O); Pulse Ox 98% on R/A; Pain 0/10; kas2 21:20 BP 146 / 70 (auto/); kas2 21:20 Pulse 84 MON; Pulse Ox 97% ; kas2 21:24 BP 145 / 68 (auto/); kas2 21:24 Pulse 100 MON; Pulse Ox 98% ; kas2 21:30 BP 145 / 68; Pulse 87; Resp 18; Temp 97.6; Pulse Ox 98% on R/A; Pain 0/10; kas2 21:35 BP 152 / 70 (auto/); kas2 21:35 Pulse 90 MON; Pulse Ox 97% ; kas2 21:43 BP 145 / 67 (auto/); kas2 21:43 Pulse 84 MON; Pulse Ox 98% ; kas2 21:52 BP 145 / 67; Pulse 81; Resp 18; Temp 98.0(O); Pulse Ox 98% on R/A; Pain 0/10; kas2 17:22 Body Mass Index 26.91 (92.53 kg, 185.42 cm) gr2 Vitals: 17:22 Log In Time: July 13, 2016 at 17:22. RN notified that patient meets Red Flag gr2 criteria. ED Course: 17:22 Patient visited by Haley Zavaleta. gr2 17:22 Perris is Private Physician. gr2 17:22 Patient moved to Waiting gr2 17:25 Patient visited by Haley Zavaleta. gr2 17:25 Patient moved to Pre RCE gr2 17:27 Patient visited by Thaddeus Dougherty, RN. mlb1 17:28 Triage Initiated mlb1 17:32 Patient visited by Thaddeus Dougherty, RN. mlb1 17:32 Gladis Zavaleta, CONRAD is Primary Nurse. mlb1 17:32 Patient moved to 9 mlb1 17:37 Katie Erwin MD is Attending Physician. sd1 17:41 Patient visited by Katie Erwin MD. sd1 17:43 Patient visited by Gladis Zavaleta RN. jjr 17:43 The patient / caregiver is instructed regarding the plan of care and ED course. jjr 17:51 Patient visited by Shubham Davila. jml1 17:51 EKG done. (by ED staff). Reviewed by Katie Erwin MD. jml1 18:03 Basic Metabolic Profile Sent. jjr 18:03 CBC with Diff Sent. jjr 18:03 Lipase Sent. jjr 18:03 Liver Profile Sent. jjr 18:03 Prothrombin Time Profile\E\INR Sent. jjr 18:27 Inserted saline lock: 20 gauge in right in left antecubital area. jjr 18:29 TYPE & SCREEN Sent. rs6 18:29 Type and Cross, Packed Cells Sent. rs6 18:30 [facility] [place] [facility] Payment Agreement was scanned into [employer] and attached to record. gb 18:33 Patient visited by Gladis Zavaleta RN. jjr 18:39 Chest, 1 View Returned. EDMS 18:58 Primary Nurse role handed off by Gladis Zavaleta RN jjr 18:58 Radha Davison RN is Primary Nurse. kas2 18:59 Demian Mccauley MD is Hospitalizing Provider. sd1 19:00 Patient visited by Radha Davison RN. kas2 19:53 Patient visited by Radha Davison RN. kas2 20:05 Patient visited by Radha Davison RN. kas2 21:01 Patient visited by Radha Davison RN. kas2 21:20 Patient visited by Radha Davison RN. kas2 21:34 Patient visited by Radha Davison RN. kas2 21:49 No procedures done that require assistance. kas2 21:54 T-Sheet-- Draft Copy was scanned into [employer] and attached to record. klr 21:55 Patient visited by Radha Davison RN. kas2 Administered Medications: 18:13 Drug: pantoprazole 40 mg [pantoprazole 40 mg intravenous solution] Route: IV; Rate: ld5 bolus; Site: right antecubital; 18:19 Drug: pantoprazole 8 mg/hr [pantoprazole 40 mg intravenous solution] Route: IV; Rate: jjr 10 mL/hr; Infused Over: 72 hrs; Site: right antecubital; Order Results: Lab Order: Basic Metabolic Profile; [facility] 07/13/16 18:01 Test: GLUCOSE, FASTING; Value: 121; Range: 83-110; Abnormal: Above high normal; Units: MG/DL; Status: F Test: BLOOD UREA NITROGEN; Value: 38; Range: 7-18; Abnormal: Above high normal; Units: MG/DL; Status: F Test: CREATININE FOR GFR; Value: 1.36; Range: 0.70-1.30; Abnormal: Above high normal; Units: MG/DL; Status: F Test: GLOMERULAR FILTRATION RATE; Value: 53.3; Range: >35; Status: F Test: SODIUM LEVEL; Value: 140; Range: 136-145; Units: MEQ/L; Status: F Test: POTASSIUM SERUM; Value: 4.4; Range: 3.5-5.1; Units: MEQ/L; Status: F Test: CHLORIDE LEVEL; Value: 107; Range: 98-107; Units: MEQ/L; Status: F Test: CARBON DIOXIDE LEVEL; Value: 24; Range: 21-32; Units: MEQ/L; Status: F Test: ANION GAP; Value: 9; Range: 8-16; Units: MEQ/L; Status: F Test: CALCIUM LEVEL; Value: 8.3; Range: 8.8-10.2; Abnormal: Below low normal; Units: MG/DL; Status: F Test Note: ; Units are mL/min/1.73 m2 Chronic Kidney Disease Staging per NKF: Stage I & II GFR >=60 Normal to Mildly Decreased Stage III GFR 30-59 Moderately Decreased Stage IV GFR 15-29 Severely Decreased Stage V GFR <15 Very Little GFR Left ESRD GFR <15 on EDGE TRIMMER Lab Order: CBC with Diff; SPEC'M 07/13/16 18:01 Test: WHITE BLOOD COUNT; Value: 10.6; Range: 4.0-10.0; Abnormal: Above high normal; Units: K/mm3; Status: F Test: RED BLOOD COUNT; Value: 2.78; Range: 4.30-6.10; Abnormal: Below low normal; Units: M/mm3; Status: F Test: HEMOGLOBIN; Value: 7.1; Range: 14.0-18.0; Abnormal: Below low normal; Units: g/dl; Status: F Test: HEMATOCRIT; Value: 22.7; Range: 42.0-52.0; Abnormal: Below low normal; Units: %; Status: F Test: MEAN CORPUSCULAR VOLUME; Value: 81.7; Range: 80.0-96.0; Units: fl; Status: F Test: MEAN CORPUSCULAR HEMOGLOBIN; Value: 25.4; Range: 27.0-33.0; Abnormal: Below low normal; Units: pg; Status: F Test: MEAN CORPUSCULAR HGB CONC; Value: 31.1; Range: 32.0-36.5; Abnormal: Below low normal; Units: g/dl; Status: F Test: RED CELL DISTRIBUTION WIDTH; Value: 16.4; Range: 11.5-14.5; Abnormal: Above high normal; Units: %; Status: F Test: PLATELET COUNT, AUTOMATED; Value: 201; Range: 150-450; Units: k/mm3; Status: F Test: NEUTROPHILS %; Value: 71.9; Range: 36.0-66.0; Abnormal: Above high normal; Units: %; Status: F Test: LYMPH %; Value: 16.8; Range: 24.0-44.0; Abnormal: Below low normal; Units: %; Status: F Test: MONO %; Value: 7.3; Range: 0.0-5.0; Abnormal: Above high normal; Units: %; Status: F Test: EOS %; Value: 1.2; Range: 0.0-3.0; Units: %; Status: F Test: BASO %; Value: 0.3; Range: 0.0-1.0; Units: %; Status: F Test: LARGE UNSTAINED CELL %; Value: 2.4; Range: 0.0-4.0; Units: %; Status: F Test: NEUTROPHILS #; Value: 7.7; Range: 1.8-7.7; Units: K/mm3; Status: F Test: LYMPH #; Value: 1.8; Range: 1.5-4.5; Units: K/mm3; Status: F Test: MONO #; Value: 0.8; Range: 0.0-0.8; Units: K/mm3; Status: F Test: EOS #; Value: 0.1; Range: 0.0-0.50; Units: K/mm3; Status: F Test: BASO #; Value: 0.0; Range: 0.0-0.2; Units: K/mm3; Status: F Test: LARGE UNSTAINED CELL #; Value: 0.3; Range: 0.0-0.4; Units: K/mm3; Status: F Lab Order: Lipase; [facility] 07/13/16 18:01 Test: LIPASE; Value: 229; Range: 73-393; Units: U/L; Status: F Lab Order: Liver Profile; [facility] 07/13/16 18:01 Test: AST/SGOT; Value: 16; Range: 15-37; Units: U/L; Status: F Test: ALT/SGPT; Value: 22; Range: 12-78; Units: U/L; Status: F Test: ALKALINE PHOSPHATASE; Value: 65; Range: 45-117; Units: U/L; Status: F Test: BILIRUBIN,TOTAL; Value: 0.2; Range: 0.2-1.0; Units: MG/DL; Status: F Test: BILIRUBIN,DIRECT; Value: < 0.1; Range: 0.0-0.2; Units: MG/DL; Status: F Test: TOTAL PROTEIN; Value: 6.3; Range: 6.4-8.2; Abnormal: Below low normal; Units: GM/DL; Status: F Test: ALBUMIN; Value: 3.4; Range: 3.2-5.2; Units: GM/DL; Status: F Test: ALBUMIN/GLOBULIN RATIO; Value: 1.17; Range: 1.00-1.93; Status: F Lab Order: Prothrombin Time Profile\E\INR; [facility]' 07/13/16 18:01 Test: PROTHROMBIN TIME; Value: 21.0; Range: 12.3-14.5; Abnormal: Above high normal; Units: SECONDS; Status: F Test: INR; Value: 1.80; Status: F Test Note: ; THERAPUTIC HUMAN INR VALUES INDICATIONS NORMAL RANGES PROPHYLAXIS/TREATMENT OF: VENOUS THROMBOSIS 2.0-3.0 PULMONARY EMBOLISM 2.0-3.0 PREVENTION OF SYSTEMIC EMBOLISM FROM: TISSUE HEART VALVES 2.0-3.0 ACUTE MYOCARDIAL INFARCTION 2.0-3.0 VALVULAR HEART DISEASE 2.0-3.0 ATRIAL FIBRILLATION 2.0-3.0 MECHANICAL VALVES(HIGH RISK) 2.5-3.5 RECURRENT MYOCARDIAL INFARCTION 2.5-3.5 Lab Order: TYPE & SCREEN; [facility] 07/13/16 18:01 Test: BLOOD TYPE; Value: O POS; Status: F Test: AB SCREEN (INDIRECT JOLYNN)GEL; Value: NEGATIVE; Status: F Test: IMMEDIATE SPIN CROSSMATCH; Value: [id number] O POSITIVE Compatible? Y; Status: F Test: IMMEDIATE SPIN CROSSMATCH; Value: [id number] O POSITIVE Compatible? Y; Status: F Radiology Order: Chest, 1 View Test: Chest, 1 View REASON FOR EXAMINATION: Shortness of Breath; Clinical: Shortness of breath .; ; Comparison: None .; ; Findings:; The mediastinum and cardiac silhouette are stable and within normal limits for; portable technique. The lung bernardo are clear without acute consolidation,; effusion, or pneumothorax. Skeletal structures are intact.; ; Impression:; Normal portable chest x-ray; ; ; Signed by; Chu Espinoza MD 07/13/2016 06:20 P; Outcome: 18:59 Decision to Hospitalize by Provider. sd1 21:48 Discharge Assessment: patient administered narcotics - no. kas2 21:49 No special radiology studies were completed. kas2 22:00 The following High Risk Discharge criteria are identified: None. Admitted to Med/Surg kas2 accompanied by nurse, accompanied by tech, via stretcher, with chart. Condition: good Condition: stable Condition: improved. Property :Personal belongings accompany Pt. 22:01 Patient left the ED. [facility] Signatures: Dispatcher [employer] EDSC Katie Erwin MD MD sd1 Tarsha Calderon, Reg Reg sushma Dougherty, Thaddeus Rojo RN RN mlb1 Gladis Zavaleta RN RN jshanikar Destiny BrysonRN RN [id number] Shubham Davila jml1 Halye Zavaleta 2 Alva Ron, SENIOR TELECOMMUNICATIONS TECHNICIAN SENIOR TELECOMMUNICATIONS TECHNICIAN rs6 Radha Davison,RN RN kas2 Melida Kwon Corrections: (The following items were deleted from the chart) 18:41 18:03 TYPE & SCREEN+BBK sent. [facility] EDSC 19:52 19:49 General: Appears in no apparent distress, well nourished, well groomed, Behavior [facility] is appropriate for age, [facility] Chart Complete MTDD
--- NOTE | 2016-07-16 14:35 | EDDOCDS ---
Physician Documentation [facility] Name: Royal Mahin Coppola Age: 85 yrs Sex: Male : 1930 Arrival Date: 07/13/2016 Time: 17:20 Bed 9 Private MD: Lurdes Disposition: 07/13/16 18:59 Hospitalization ordered by Demian Mccauley for Inpatient Admission. Preliminary diagnosis are Gastrointestinal hemorrhage, unspecified, Anemia, unspecified. - Bed requested for 4 [place]. - Status is Inpatient Admission. kas2 - Condition is Stable. - Problem is new. - Symptoms are unchanged. Historical: - Allergies: PENICILLINS; - Home Meds: 1. Xarelto 20 mg oral tab 1 tab once daily 2. irbesartan 150 mg oral tab 1 tab once daily 3. ferrous sulfate 140 mg (45 mg iron) Oral TbER twice a day - PMHx: Atrial Fib; AAA; Hypertension; Cancer, Prostate; - PSHx: Hemorrhoidectomy; - Social history: Smoking status: Patient states was never smoker of tobacco. No barriers to communication noted, The patient speaks fluent Khmer, Speaks appropriately for age. - Family history: Not pertinent. - : The pt / caregiver states he / she is on anticoagulants: Xarelto Home medication list is obtained from pill bottles. - Exposure Risk Screening:: None identified. Vital Signs: 07/13 17:22 BP 108 / 61; Pulse 96; Resp 18 S; Temp 97.3(O); Pulse Ox 99% on R/A; Weight 92.53 kg / gr2 203.99 lbs (R); Height 6 ft. 1 in. (185.42 cm) (R); Pain 3/10; 18:04 BP 139 / 65 (auto/); kas2 18:04 Pulse 84 MON; Pulse Ox 97% ; kas2 18:10 BP 139 / 65 LA Supine (auto/); Pulse 88; jjr 18:11 BP 87 / 58 LA Sitting (auto/); Pulse 109; jjr 18:20 BP 119 / 67 (auto/); jjr 18:20 Pulse 86 MON; Pulse Ox 98% ; jjr 18:34 Pulse 86 MON; Resp 18; Pulse Ox 97% on R/A; jjr 18:35 BP 126 / 60 (auto/); jjr 18:50 BP 121 / 55 (auto/); jjr 18:50 Pulse 80 MON; Pulse Ox 98% ; jjr 19:20 BP 118 / 59 (auto/); kas2 19:20 Pulse 88 MON; Pulse Ox 97% ; kas2 19:36 BP 133 / 61 (auto/); kas2 19:36 Pulse 96 MON; Pulse Ox 98% ; kas2 19:45 BP 133 / 61; Pulse 84; Resp 18; Temp 98.1(O); Pulse Ox 97% on R/A; Pain 0/10; kas2 19:50 BP 158 / 70 (auto/); kas2 19:50 Pulse 92 MON; Pulse Ox 98% ; kas2 19:58 BP 159 / 75 (auto/); kas2 19:58 Pulse 94 MON; Pulse Ox 98% ; kas2 20:00 Resp 18; Temp 98.7(O); Pain 0/10; kas2 20:05 BP 147 / 66 (auto/); kas2 20:05 Pulse 96 MON; Pulse Ox 99% ; kas2 20:20 BP 140 / 57 (auto/); kas2 20:20 Pulse 82 MON; Pulse Ox 97% ; kas2 20:35 BP 129 / 62 (auto/); kas2 20:35 Pulse 82 MON; Pulse Ox 97% ; kas2 20:47 BP 130 / 60 (auto/); kas2 20:47 Pulse 78 MON; Pulse Ox 97% ; kas2 20:50 BP 146 / 64 (auto/); kas2 20:50 Pulse 92 MON; Pulse Ox 96% ; kas2 21:05 BP 149 / 68 (auto/); kas2 21:05 Pulse 82 MON; Pulse Ox 98% ; kas2 21:19 BP 149 / 68; Pulse 88; Resp 18; Temp 97.6(O); Pulse Ox 98% on R/A; Pain 0/10; kas2 21:20 BP 146 / 70 (auto/); kas2 21:20 Pulse 84 MON; Pulse Ox 97% ; kas2 21:24 BP 145 / 68 (auto/); kas2 21:24 Pulse 100 MON; Pulse Ox 98% ; kas2 21:30 BP 145 / 68; Pulse 87; Resp 18; Temp 97.6; Pulse Ox 98% on R/A; Pain 0/10; kas2 21:35 BP 152 / 70 (auto/); kas2 21:35 Pulse 90 MON; Pulse Ox 97% ; kas2 21:43 BP 145 / 67 (auto/); kas2 21:43 Pulse 84 MON; Pulse Ox 98% ; kas2 21:52 BP 145 / 67; Pulse 81; Resp 18; Temp 98.0(O); Pulse Ox 98% on R/A; Pain 0/10; kas2 17:22 Body Mass Index 26.91 (92.53 kg, 185.42 cm) gr2 MDM: 17:42 Carbon Coater Machine Operator/Pulse Ox/q 30 min VS ordered. sd1 17:42 Undress patient appropriately for examination ordered. sd1 17:42 Orthostatic VS ordered. sd1 17:42 IV Saline Lock ordered. sd1 17:42 Basic Metabolic Profile Ordered. EDMS 17:42 CBC with Diff Ordered. EDMS 17:42 Lipase Ordered. EDMS 17:42 Liver Profile Ordered. EDMS 17:42 Prothrombin Time Profile\E\INR Ordered. EDMS 17:43 ECG WITH READING ER PHYS+CARDIAG ordered. EDMS 17:55 pantoprazole 8 mg/hr IV at 10 mL/hr continuous over 72 hrs; 40mg (10mL): withdraw 10mL sd1 from 50mL bag of NS then add protonix ordered. 17:55 pantoprazole 40 mg IV at bolus once ordered. sd1 18:02 BED REQUEST+ADM ordered. EDMS 18:03 Chest, 1 View Ordered. EDMS 18:16 Type and Cross, Packed Cells Ordered. EDMS 18:17 TYPE & SCREEN Ordered. EDMS 18:17 CBC with Diff Reviewed. sd1 18:23 Financial registration complete. gb 18:28 Prothrombin Time Profile\E\INR Reviewed. sd1 18:30 [facility] [place] Payment Agreement was scanned into [employer] and attached to record. gb 18:30 Transfuse PRBC's 2 units, ensure PRBCs ordered in lab ordered. sd1 18:39 Basic Metabolic Profile Reviewed. sd1 18:39 Liver Profile Reviewed. sd1 18:39 Lipase Reviewed. sd1 18:39 Chest, 1 View Reviewed. sd1 20:15 NPO DIET ordered. EDMS 20:15 CBC WITH DIFFERENTIAL Ordered. EDMS 20:15 COMPLETE COMPHRENSIVE METABOLI Ordered. EDMS 20:17 HEMOGLOBIN & HEMATOCRIT Ordered. EDMS 20:17 HEMOGLOBIN & HEMATOCRIT Ordered. EDMS 20:17 HEMOGLOBIN & HEMATOCRIT Ordered. EDMS 21:20 Admission / Observation Status ordered. EDMS 21:54 T-Sheet-- Draft Copy was scanned into [employer] and attached to record. klr Administered Medications: 18:13 Drug: pantoprazole 40 mg [pantoprazole 40 mg intravenous solution] Route: IV; Rate: ld5 bolus; Site: right antecubital; 18:19 Drug: pantoprazole 8 mg/hr [pantoprazole 40 mg intravenous solution] Route: IV; Rate: jjr 10 mL/hr; Infused Over: 72 hrs; Site: right antecubital; Signatures: Dispatcher [employer] EDMS Katie Erwin MD MD sd1 Tarsha Calderon Reg Reg gb Barney, Michael B RN RN mlb1 Lashon Belcher RN RN sls1 Radha Davison RN RN kas2 Melida Kwon Jessica RN jjr Dickerson, Laura RN ld5 The chart was reviewed and I authenticate all verbal orders and agree with the evaluation and treatment provided.Corrections: (The following items were deleted from the chart) 18:41 17:43 TYPE & SCREEN+BBK ordered. EDIA EDMS Attachments: 18:30 [facility] Payment Agreement gb 21:54 T-Sheet-- Draft Copy klr Chart Complete MTDD
--- NOTE | 2016-07-16 14:35 | EDDOCDS ---
Physician Documentation [facility] Name: Royal Mahin Coppola Age: 85 yrs Sex: Male : 1930 Arrival Date: 07/13/2016 Time: 17:20 Bed 9 Private MD: Lurdes Disposition: 07/13/16 18:59 Hospitalization ordered by Demian Mccauley for Inpatient Admission. Preliminary diagnosis are Gastrointestinal hemorrhage, unspecified, Anemia, unspecified. - Bed requested for 4 [place]. - Status is Inpatient Admission. kas2 - Condition is Stable. - Problem is new. - Symptoms are unchanged. Historical: - Allergies: PENICILLINS; - Home Meds: 1. Xarelto 20 mg oral tab 1 tab once daily 2. irbesartan 150 mg oral tab 1 tab once daily 3. ferrous sulfate 140 mg (45 mg iron) Oral TbER twice a day - PMHx: Atrial Fib; AAA; Hypertension; Cancer, Prostate; - PSHx: Hemorrhoidectomy; - Social history: Smoking status: Patient states was never smoker of tobacco. No barriers to communication noted, The patient speaks fluent Portuguese, Speaks appropriately for age. - Family history: Not pertinent. - : The pt / caregiver states he / she is on anticoagulants: Xarelto Home medication list is obtained from pill bottles. - Exposure Risk Screening:: None identified. Vital Signs: 07/13 17:22 BP 108 / 61; Pulse 96; Resp 18 S; Temp 97.3(O); Pulse Ox 99% on R/A; Weight 92.53 kg / gr2 203.99 lbs (R); Height 6 ft. 1 in. (185.42 cm) (R); Pain 3/10; 18:04 BP 139 / 65 (auto/); kas2 18:04 Pulse 84 MON; Pulse Ox 97% ; kas2 18:10 BP 139 / 65 LA Supine (auto/); Pulse 88; jjr 18:11 BP 87 / 58 LA Sitting (auto/); Pulse 109; jjr 18:20 BP 119 / 67 (auto/); jjr 18:20 Pulse 86 MON; Pulse Ox 98% ; jjr 18:34 Pulse 86 MON; Resp 18; Pulse Ox 97% on R/A; jjr 18:35 BP 126 / 60 (auto/); jjr 18:50 BP 121 / 55 (auto/); jjr 18:50 Pulse 80 MON; Pulse Ox 98% ; jjr 19:20 BP 118 / 59 (auto/); kas2 19:20 Pulse 88 MON; Pulse Ox 97% ; kas2 19:36 BP 133 / 61 (auto/); kas2 19:36 Pulse 96 MON; Pulse Ox 98% ; kas2 19:45 BP 133 / 61; Pulse 84; Resp 18; Temp 98.1(O); Pulse Ox 97% on R/A; Pain 0/10; kas2 19:50 BP 158 / 70 (auto/); kas2 19:50 Pulse 92 MON; Pulse Ox 98% ; kas2 19:58 BP 159 / 75 (auto/); kas2 19:58 Pulse 94 MON; Pulse Ox 98% ; kas2 20:00 Resp 18; Temp 98.7(O); Pain 0/10; kas2 20:05 BP 147 / 66 (auto/); kas2 20:05 Pulse 96 MON; Pulse Ox 99% ; kas2 20:20 BP 140 / 57 (auto/); kas2 20:20 Pulse 82 MON; Pulse Ox 97% ; kas2 20:35 BP 129 / 62 (auto/); kas2 20:35 Pulse 82 MON; Pulse Ox 97% ; kas2 20:47 BP 130 / 60 (auto/); kas2 20:47 Pulse 78 MON; Pulse Ox 97% ; kas2 20:50 BP 146 / 64 (auto/); kas2 20:50 Pulse 92 MON; Pulse Ox 96% ; kas2 21:05 BP 149 / 68 (auto/); kas2 21:05 Pulse 82 MON; Pulse Ox 98% ; kas2 21:19 BP 149 / 68; Pulse 88; Resp 18; Temp 97.6(O); Pulse Ox 98% on R/A; Pain 0/10; kas2 21:20 BP 146 / 70 (auto/); kas2 21:20 Pulse 84 MON; Pulse Ox 97% ; kas2 21:24 BP 145 / 68 (auto/); kas2 21:24 Pulse 100 MON; Pulse Ox 98% ; kas2 21:30 BP 145 / 68; Pulse 87; Resp 18; Temp 97.6; Pulse Ox 98% on R/A; Pain 0/10; kas2 21:35 BP 152 / 70 (auto/); kas2 21:35 Pulse 90 MON; Pulse Ox 97% ; kas2 21:43 BP 145 / 67 (auto/); kas2 21:43 Pulse 84 MON; Pulse Ox 98% ; kas2 21:52 BP 145 / 67; Pulse 81; Resp 18; Temp 98.0(O); Pulse Ox 98% on R/A; Pain 0/10; kas2 17:22 Body Mass Index 26.91 (92.53 kg, 185.42 cm) gr2 MDM: 17:42 Supervisor Hardboard/Pulse Ox/q 30 min VS ordered. sd1 17:42 Undress patient appropriately for examination ordered. sd1 17:42 Orthostatic VS ordered. sd1 17:42 IV Saline Lock ordered. sd1 17:42 Basic Metabolic Profile Ordered. EDMS 17:42 CBC with Diff Ordered. EDMS 17:42 Lipase Ordered. EDMS 17:42 Liver Profile Ordered. EDMS 17:42 Prothrombin Time Profile\E\INR Ordered. EDMS 17:43 ECG WITH READING ER PHYS+CARDIAG ordered. EDMS 17:55 pantoprazole 8 mg/hr IV at 10 mL/hr continuous over 72 hrs; 40mg (10mL): withdraw 10mL sd1 from 50mL bag of NS then add protonix ordered. 17:55 pantoprazole 40 mg IV at bolus once ordered. sd1 18:02 BED REQUEST+ADM ordered. EDMS 18:03 Chest, 1 View Ordered. EDMS 18:16 Type and Cross, Packed Cells Ordered. EDMS 18:17 TYPE & SCREEN Ordered. EDMS 18:17 CBC with Diff Reviewed. sd1 18:23 Financial registration complete. gb 18:28 Prothrombin Time Profile\E\INR Reviewed. sd1 18:30 [facility] Payment Agreement was scanned into [employer] and attached to record. gb 18:30 Transfuse PRBC's 2 units, ensure PRBCs ordered in lab ordered. sd1 18:39 Basic Metabolic Profile Reviewed. sd1 18:39 Liver Profile Reviewed. sd1 18:39 Lipase Reviewed. sd1 18:39 Chest, 1 View Reviewed. sd1 20:15 NPO DIET ordered. EDMS 20:15 CBC WITH DIFFERENTIAL Ordered. EDMS 20:15 COMPLETE COMPHRENSIVE METABOLI Ordered. EDMS 20:17 HEMOGLOBIN & HEMATOCRIT Ordered. EDMS 20:17 HEMOGLOBIN & HEMATOCRIT Ordered. EDMS 20:17 HEMOGLOBIN & HEMATOCRIT Ordered. EDMS 21:20 Admission / Observation Status ordered. EDMS 21:54 T-Sheet-- Draft Copy was scanned into [employer] and attached to record. klr Administered Medications: 18:13 Drug: pantoprazole 40 mg [pantoprazole 40 mg intravenous solution] Route: IV; Rate: ld5 bolus; Site: right antecubital; 18:19 Drug: pantoprazole 8 mg/hr [pantoprazole 40 mg intravenous solution] Route: IV; Rate: jjr 10 mL/hr; Infused Over: 72 hrs; Site: right antecubital; Signatures: Dispatcher [employer] EDMS Katie Erwin MD MD sd1 Tarsha Calderon Reg Reg gb Barney, Michael B RN RN mlb1 Lashon Belcher RN RN sls1 Radha Davison RN RN kas2 Melida Kwon Jessica RN jjr Dickerson, Laura RN ld5 The chart was reviewed and I authenticate all verbal orders and agree with the evaluation and treatment provided.Corrections: (The following items were deleted from the chart) 18:41 17:43 TYPE & SCREEN+BBK ordered. EDUT EDMS Attachments: 18:30 [facility] Payment Agreement gb 21:54 T-Sheet-- Draft Copy klr Chart Complete MTDD
--- NOTE | 2016-07-16 14:35 | EDDOCDS ---
Nurse's Notes [facility] Name: Royal Mahin Coppola Age: 85 yrs Sex: Male : 1930 Arrival Date: 07/13/2016 Time: 17:20 Bed 9 Private MD: Lurdes Diagnosis: Gastrointestinal hemorrhage, unspecified;Anemia, unspecified Presentation: 07/13 17:27 Presenting complaint: Patient states: SOB weakness and bloody stools began on Friday mlb1 seen at [facility] on diagnosed with anemia states SOB worse since. Adult Sepsis Screening: The patient does not have new or worsening altered mentation. Patient's respiratory rate is less than 22. Systolic blood pressure is greater than 100. Patient has a qSOFA score of 0- Negative Sepsis Screen. Suicide/Homicide risk assessment- the patient denies having any suicidal and/or homicidal ideations and does not present with any other emotional, behavioral or mental health complaints. Status: Patient is not a tire service technician or dependent. Transition of care: patient was not received from another setting of care. 17:27 Acuity: LAURA Level 3 mlb1 17:27 Method Of Arrival: Walkin/Carried/Asstd mlb1 Triage Assessment: 17:31 General: Appears in no apparent distress, Behavior is appropriate for age, cooperative. mlb1 Pain: Denies pain. Neurological: Reports weakness. Respiratory: Reports shortness of breath. Historical: - Allergies: PENICILLINS; - Home Meds: 1. Xarelto 20 mg oral tab 1 tab once daily 2. irbesartan 150 mg oral tab 1 tab once daily 3. ferrous sulfate 140 mg (45 mg iron) Oral TbER twice a day - PMHx: Atrial Fib; AAA; Hypertension; Cancer, Prostate; - PSHx: Hemorrhoidectomy; - Social history: Smoking status: Patient states was never smoker of tobacco. No barriers to communication noted, The patient speaks fluent Yoruba, Speaks appropriately for age. - Family history: Not pertinent. - : The pt / caregiver states he / she is on anticoagulants: Xarelto Home medication list is obtained from pill bottles. - Exposure Risk Screening:: None identified. Screenin:43 Screening information is obtained from the patient. Fall risk: No risks identified. jjr Assistance ADL's: requires no assistance with activities of daily living. Abuse/DV Screen: The patient / caregiver reports he/she is: not in a situation that causes fear, pain or injury. Nutritional screening: No deficits noted. home support is adequate. 21:49 Advance Directives: Currently, there is no health care proxy. There is no active DNR kas2 order. There is a living will, but a copy is not available at this time. There is no Power of Garbage Collection Supervisor. Assessment: 17:42 General: Appears in no apparent distress, well nourished, well groomed, Behavior is jjr appropriate for age. Pain: Denies pain. Neurological: No deficits noted. Cardiovascular: Edema is absent. Respiratory: Airway is patent Respiratory effort is even, unlabored, Respiratory pattern is regular, Breath sounds with rhonchi in right posterior lower lobe Reports shortness of breath on exertion. GI: Abd is soft and non tender X 4 quads. Reports black bowel movements. Derm: Skin is pink, warm & dry. 18:33 General: Appears in no apparent distress. Pain: Denies pain. Neurological: No deficits jjr noted. Cardiovascular: Rhythm is sinus rhythm. Respiratory: Airway is patent Respiratory effort is even, unlabored, Respiratory pattern is regular. Derm: Skin is pink, warm & dry. 18:59 General: Verbal report given by Gladis Morris RN. Assumed care of patient at this time.. kas2 19:45 General: 1st unit of PRBC's initiated. Patient resting in bed. Denies pain or kas2 discomfort at this time. No apparent distress noted. Call bronson within reach. Will continue to monitor.. 19:49 Pain: Denies pain. Neurological: No deficits noted. Level of Consciousness is awake, kas2 alert, Oriented to person, place, time. Cardiovascular: Capillary refill < 3 seconds Heart tones present Edema is absent. Rhythm is sinus rhythm No ectopy. Respiratory: Airway is patent Respiratory effort is even, unlabored, Respiratory pattern is regular, symmetrical, Breath sounds with rhonchi in right posterior lower lobe. GI: Abd is soft and non tender X 4 quads. Derm: Skin is dry, Skin is pink, warm & dry. Skin temperature is warm. 20:59 General: Patient resting in bed watching TV. No apparent distress noted. Denies pain or kas2 discomfort at this time. Appears comfortable. VSS. Call bronson within reach. Will continue to monitor.. 21:18 General: 1st unit of PRBC's finished. No reaction. VSS. Patient continues to be pain kas2 free. No apparent distress. Will continue to monitor.. 21:32 General: 2nd unit of PRBC's initiated. VSS. Patient continues to be pain free. Appears kas2 comfortable. No apparent distress noted. Will continue to monitor.. 21:49 General: Appears in no apparent distress, well nourished, well groomed, Behavior is kas2 appropriate for age. Pain: Denies pain. Neurological: Level of Consciousness is awake, alert, Oriented to person, place, time. Cardiovascular: Capillary refill < 3 seconds Heart tones present Rhythm is sinus rhythm No ectopy. Respiratory: Airway is patent Respiratory effort is even, unlabored, Respiratory pattern is regular, symmetrical, Breath sounds with rhonchi in right posterior lower lobe. GI: Abd is soft and non tender X 4 quads. Derm: Skin is dry, Skin is pink, warm & dry. Skin temperature is warm. Vital Signs: 17:22 BP 108 / 61; Pulse 96; Resp 18 S; Temp 97.3(O); Pulse Ox 99% on R/A; Weight 92.53 kg gr2 (R); Height 6 ft. 1 in. (185.42 cm) (R); Pain 3/10; 18:04 BP 139 / 65 (auto/); kas2 18:04 Pulse 84 MON; Pulse Ox 97% ; kas2 18:10 BP 139 / 65 LA Supine (auto/); Pulse 88; jjr 18:11 BP 87 / 58 LA Sitting (auto/); Pulse 109; jjr 18:20 BP 119 / 67 (auto/); jjr 18:20 Pulse 86 MON; Pulse Ox 98% ; jjr 18:34 Pulse 86 MON; Resp 18; Pulse Ox 97% on R/A; jjr 18:35 BP 126 / 60 (auto/); jjr 18:50 BP 121 / 55 (auto/); jjr 18:50 Pulse 80 MON; Pulse Ox 98% ; jjr 19:20 BP 118 / 59 (auto/); kas2 19:20 Pulse 88 MON; Pulse Ox 97% ; kas2 19:36 BP 133 / 61 (auto/); kas2 19:36 Pulse 96 MON; Pulse Ox 98% ; kas2 19:45 BP 133 / 61; Pulse 84; Resp 18; Temp 98.1(O); Pulse Ox 97% on R/A; Pain 0/10; kas2 19:50 BP 158 / 70 (auto/); kas2 19:50 Pulse 92 MON; Pulse Ox 98% ; kas2 19:58 BP 159 / 75 (auto/); kas2 19:58 Pulse 94 MON; Pulse Ox 98% ; kas2 20:00 Resp 18; Temp 98.7(O); Pain 0/10; kas2 20:05 BP 147 / 66 (auto/); kas2 20:05 Pulse 96 MON; Pulse Ox 99% ; kas2 20:20 BP 140 / 57 (auto/); kas2 20:20 Pulse 82 MON; Pulse Ox 97% ; kas2 20:35 BP 129 / 62 (auto/); kas2 20:35 Pulse 82 MON; Pulse Ox 97% ; kas2 20:47 BP 130 / 60 (auto/); kas2 20:47 Pulse 78 MON; Pulse Ox 97% ; kas2 20:50 BP 146 / 64 (auto/); kas2 20:50 Pulse 92 MON; Pulse Ox 96% ; kas2 21:05 BP 149 / 68 (auto/); kas2 21:05 Pulse 82 MON; Pulse Ox 98% ; kas2 21:19 BP 149 / 68; Pulse 88; Resp 18; Temp 97.6(O); Pulse Ox 98% on R/A; Pain 0/10; kas2 21:20 BP 146 / 70 (auto/); kas2 21:20 Pulse 84 MON; Pulse Ox 97% ; kas2 21:24 BP 145 / 68 (auto/); kas2 21:24 Pulse 100 MON; Pulse Ox 98% ; kas2 21:30 BP 145 / 68; Pulse 87; Resp 18; Temp 97.6; Pulse Ox 98% on R/A; Pain 0/10; kas2 21:35 BP 152 / 70 (auto/); kas2 21:35 Pulse 90 MON; Pulse Ox 97% ; kas2 21:43 BP 145 / 67 (auto/); kas2 21:43 Pulse 84 MON; Pulse Ox 98% ; kas2 21:52 BP 145 / 67; Pulse 81; Resp 18; Temp 98.0(O); Pulse Ox 98% on R/A; Pain 0/10; kas2 17:22 Body Mass Index 26.91 (92.53 kg, 185.42 cm) gr2 Vitals: 17:22 Log In Time: July 13, 2016 at 17:22. RN notified that patient meets Red Flag gr2 criteria. ED Course: 17:22 Patient visited by Haley Zavaleta. gr2 17:22 Gonzales is Private Physician. gr2 17:22 Patient moved to Waiting gr2 17:25 Patient visited by Haley Zavaleta. gr2 17:25 Patient moved to Pre RCE gr2 17:27 Patient visited by Thaddeus Dougherty, RN. mlb1 17:28 Triage Initiated mlb1 17:32 Patient visited by Thaddeus Dougherty, RN. mlb1 17:32 Gladis Zavaleta, CONRAD is Primary Nurse. mlb1 17:32 Patient moved to 9 mlb1 17:37 Katie Erwin MD is Attending Physician. sd1 17:41 Patient visited by Katie Erwin MD. sd1 17:43 Patient visited by Gladis Zavaleta RN. jjr 17:43 The patient / caregiver is instructed regarding the plan of care and ED course. jjr 17:51 Patient visited by Shubham Davila. jml1 17:51 EKG done. (by ED staff). Reviewed by Katie Erwin MD. jml1 18:03 Basic Metabolic Profile Sent. jjr 18:03 CBC with Diff Sent. jjr 18:03 Lipase Sent. jjr 18:03 Liver Profile Sent. jjr 18:03 Prothrombin Time Profile\E\INR Sent. jjr 18:27 Inserted saline lock: 20 gauge in right in left antecubital area. jjr 18:29 TYPE & SCREEN Sent. rs6 18:29 Type and Cross, Packed Cells Sent. rs6 18:30 [facility] Payment Agreement was scanned into [email or web address] and attached to record. gb 18:33 Patient visited by Gladis Zavaleta RN. jjr 18:39 Chest, 1 View Returned. EDMS 18:58 Primary Nurse role handed off by Gladis Zavaleta RN jjr 18:58 Radha Davison RN is Primary Nurse. kas2 18:59 Demian Mccauley MD is Hospitalizing Provider. sd1 19:00 Patient visited by Radha Davison RN. kas2 19:53 Patient visited by Radha Davison RN. kas2 20:05 Patient visited by Radha Davison RN. kas2 21:01 Patient visited by Radha Davison RN. kas2 21:20 Patient visited by Radha Davison RN. kas2 21:34 Patient visited by Radha Davison RN. kas2 21:49 No procedures done that require assistance. kas2 21:54 T-Sheet-- Draft Copy was scanned into [email or web address] and attached to record. klr 21:55 Patient visited by Radha Davison RN. kas2 Administered Medications: 18:13 Drug: pantoprazole 40 mg [pantoprazole 40 mg intravenous solution] Route: IV; Rate: ld5 bolus; Site: right antecubital; 18:19 Drug: pantoprazole 8 mg/hr [pantoprazole 40 mg intravenous solution] Route: IV; Rate: jjr 10 mL/hr; Infused Over: 72 hrs; Site: right antecubital; Order Results: Lab Order: Basic Metabolic Profile; [facility] 07/13/16 18:01 Test: GLUCOSE, FASTING; Value: 121; Range: 83-110; Abnormal: Above high normal; Units: MG/DL; Status: F Test: BLOOD UREA NITROGEN; Value: 38; Range: 7-18; Abnormal: Above high normal; Units: MG/DL; Status: F Test: CREATININE FOR GFR; Value: 1.36; Range: 0.70-1.30; Abnormal: Above high normal; Units: MG/DL; Status: F Test: GLOMERULAR FILTRATION RATE; Value: 53.3; Range: >35; Status: F Test: SODIUM LEVEL; Value: 140; Range: 136-145; Units: MEQ/L; Status: F Test: POTASSIUM SERUM; Value: 4.4; Range: 3.5-5.1; Units: MEQ/L; Status: F Test: CHLORIDE LEVEL; Value: 107; Range: 98-107; Units: MEQ/L; Status: F Test: CARBON DIOXIDE LEVEL; Value: 24; Range: 21-32; Units: MEQ/L; Status: F Test: ANION GAP; Value: 9; Range: 8-16; Units: MEQ/L; Status: F Test: CALCIUM LEVEL; Value: 8.3; Range: 8.8-10.2; Abnormal: Below low normal; Units: MG/DL; Status: F Test Note: ; Units are mL/min/1.73 m2 Chronic Kidney Disease Staging per NKF: Stage I & II GFR >=60 Normal to Mildly Decreased Stage III GFR 30-59 Moderately Decreased Stage IV GFR 15-29 Severely Decreased Stage V GFR <15 Very Little GFR Left ESRD GFR <15 on GIS DATABASE ADMINISTRATOR Lab Order: CBC with Diff; SPEC'M 07/13/16 18:01 Test: WHITE BLOOD COUNT; Value: 10.6; Range: 4.0-10.0; Abnormal: Above high normal; Units: K/mm3; Status: F Test: RED BLOOD COUNT; Value: 2.78; Range: 4.30-6.10; Abnormal: Below low normal; Units: M/mm3; Status: F Test: HEMOGLOBIN; Value: 7.1; Range: 14.0-18.0; Abnormal: Below low normal; Units: g/dl; Status: F Test: HEMATOCRIT; Value: 22.7; Range: 42.0-52.0; Abnormal: Below low normal; Units: %; Status: F Test: MEAN CORPUSCULAR VOLUME; Value: 81.7; Range: 80.0-96.0; Units: fl; Status: F Test: MEAN CORPUSCULAR HEMOGLOBIN; Value: 25.4; Range: 27.0-33.0; Abnormal: Below low normal; Units: pg; Status: F Test: MEAN CORPUSCULAR HGB CONC; Value: 31.1; Range: 32.0-36.5; Abnormal: Below low normal; Units: g/dl; Status: F Test: RED CELL DISTRIBUTION WIDTH; Value: 16.4; Range: 11.5-14.5; Abnormal: Above high normal; Units: %; Status: F Test: PLATELET COUNT, AUTOMATED; Value: 201; Range: 150-450; Units: k/mm3; Status: F Test: NEUTROPHILS %; Value: 71.9; Range: 36.0-66.0; Abnormal: Above high normal; Units: %; Status: F Test: LYMPH %; Value: 16.8; Range: 24.0-44.0; Abnormal: Below low normal; Units: %; Status: F Test: MONO %; Value: 7.3; Range: 0.0-5.0; Abnormal: Above high normal; Units: %; Status: F Test: EOS %; Value: 1.2; Range: 0.0-3.0; Units: %; Status: F Test: BASO %; Value: 0.3; Range: 0.0-1.0; Units: %; Status: F Test: LARGE UNSTAINED CELL %; Value: 2.4; Range: 0.0-4.0; Units: %; Status: F Test: NEUTROPHILS #; Value: 7.7; Range: 1.8-7.7; Units: K/mm3; Status: F Test: LYMPH #; Value: 1.8; Range: 1.5-4.5; Units: K/mm3; Status: F Test: MONO #; Value: 0.8; Range: 0.0-0.8; Units: K/mm3; Status: F Test: EOS #; Value: 0.1; Range: 0.0-0.50; Units: K/mm3; Status: F Test: BASO #; Value: 0.0; Range: 0.0-0.2; Units: K/mm3; Status: F Test: LARGE UNSTAINED CELL #; Value: 0.3; Range: 0.0-0.4; Units: K/mm3; Status: F Lab Order: Lipase; [facility] 07/13/16 18:01 Test: LIPASE; Value: 229; Range: 73-393; Units: U/L; Status: F Lab Order: Liver Profile; [facility] 07/13/16 18:01 Test: AST/SGOT; Value: 16; Range: 15-37; Units: U/L; Status: F Test: ALT/SGPT; Value: 22; Range: 12-78; Units: U/L; Status: F Test: ALKALINE PHOSPHATASE; Value: 65; Range: 45-117; Units: U/L; Status: F Test: BILIRUBIN,TOTAL; Value: 0.2; Range: 0.2-1.0; Units: MG/DL; Status: F Test: BILIRUBIN,DIRECT; Value: < 0.1; Range: 0.0-0.2; Units: MG/DL; Status: F Test: TOTAL PROTEIN; Value: 6.3; Range: 6.4-8.2; Abnormal: Below low normal; Units: GM/DL; Status: F Test: ALBUMIN; Value: 3.4; Range: 3.2-5.2; Units: GM/DL; Status: F Test: ALBUMIN/GLOBULIN RATIO; Value: 1.17; Range: 1.00-1.93; Status: F Lab Order: Prothrombin Time Profile\E\INR; [facility] 07/13/16 18:01 Test: PROTHROMBIN TIME; Value: 21.0; Range: 12.3-14.5; Abnormal: Above high normal; Units: SECONDS; Status: F Test: INR; Value: 1.80; Status: F Test Note: ; THERAPUTIC HUMAN INR VALUES INDICATIONS NORMAL RANGES PROPHYLAXIS/TREATMENT OF: VENOUS THROMBOSIS 2.0-3.0 PULMONARY EMBOLISM 2.0-3.0 PREVENTION OF SYSTEMIC EMBOLISM FROM: TISSUE HEART VALVES 2.0-3.0 ACUTE MYOCARDIAL INFARCTION 2.0-3.0 VALVULAR HEART DISEASE 2.0-3.0 ATRIAL FIBRILLATION 2.0-3.0 MECHANICAL VALVES(HIGH RISK) 2.5-3.5 RECURRENT MYOCARDIAL INFARCTION 2.5-3.5 Lab Order: TYPE & SCREEN; [facility] 07/13/16 18:01 Test: BLOOD TYPE; Value: O POS; Status: F Test: AB SCREEN (INDIRECT JOLYNN)GEL; Value: NEGATIVE; Status: F Test: IMMEDIATE SPIN CROSSMATCH; Value: [id number] O POSITIVE Compatible? Y; Status: F Test: IMMEDIATE SPIN CROSSMATCH; Value: [id number] O POSITIVE Compatible? Y; Status: F Radiology Order: Chest, 1 View Test: Chest, 1 View REASON FOR EXAMINATION: Shortness of Breath; Clinical: Shortness of breath .; ; Comparison: None .; ; Findings:; The mediastinum and cardiac silhouette are stable and within normal limits for; portable technique. The lung bernardo are clear without acute consolidation,; effusion, or pneumothorax. Skeletal structures are intact.; ; Impression:; Normal portable chest x-ray; ; ; Signed by; Chu Espinoza MD 07/13/2016 06:20 P; Outcome: 18:59 Decision to Hospitalize by Provider. sd1 21:48 Discharge Assessment: patient administered narcotics - no. kas2 21:49 No special radiology studies were completed. kas2 22:00 The following High Risk Discharge criteria are identified: None. Admitted to Med/Surg kas2 accompanied by nurse, accompanied by tech, via stretcher, with chart. Condition: good Condition: stable Condition: improved. Property :Personal belongings accompany Pt. 22:01 Patient left the ED. [facility] Signatures: Dispatcher [employer] EDRI Katie Erwin MD MD sd1 Tarsha Calderon, Reg Reg sushma Dougherty, Thaddeus Rojo RN RN mlb1 Gladis Zavaleta RN RN jshanikar Destiny BrysonRN RN [id number] Shubham Davila jml1 Haley Zavaleta 2 Alva Ron, CANDY CUTTER MACHINE CANDY CUTTER MACHINE rs6 Radha Davison,RN RN kas2 Melida Kwon Corrections: (The following items were deleted from the chart) 18:41 18:03 TYPE & SCREEN+BBK sent. [facility] EDRI 19:52 19:49 General: Appears in no apparent distress, well nourished, well groomed, Behavior [facility]2 is appropriate for age, [facility] Chart Complete MTDD
[2016-07-16 15:52] VITALS: BP 136/61
[2016-07-16 22:00] VITALS: BP 140/68
[2016-07-17] VITALS (7 sets, daily range): BP systolic 120–171; BP diastolic 50–83
[2016-07-17] MEDS: NS 1,000 ML IV SCH (01:20)
[2016-07-17] MEDS: PANTOPRAZOLE SODIUM 40 MG in D5W MINI-BAG PLUS 50 ML IV SCH ×2 (01:20→06:16)
[2016-07-17 06:16] LABS: BASO % 0.4 % (0.0-1.0); EOS # 0.3 K/mm3 (0.0-0.50); EOS % 3.4 % (0.0-3.0); LARGE UNSTAINED CELL # 0.1 K/mm3 (0.0-0.4); LARGE UNSTAINED CELL % 1.8 % (0.0-4.0); LYMPH # 1.8 K/mm3 (1.5-4.5); LYMPH % 21.5 % (24.0-44.0); MEAN CORPUSCULAR HEMOGLOBIN 28.3 pg (27.0-33.0); MEAN CORPUSCULAR HGB CONC 32.5 g/dl (32.0-36.5); MEAN CORPUSCULAR VOLUME 87.2 fl (80.0-96.0); MONO # 0.7 K/mm3 (0.0-0.8); MONO % 8.4 % (0.0-5.0); NEUTROPHILS % 64.5 % (36.0-66.0); PLATELET COUNT, AUTOMATED 157 k/mm3 (150-450); RED CELL DISTRIBUTION WIDTH 17.8 % (11.5-14.5); WHITE BLOOD COUNT 7.8 K/mm3 (4.0-10.0)
[2016-07-17 06:46] LABS: ALBUMIN 2.6 GM/DL (3.2-5.2); ALBUMIN/GLOBULIN RATIO 1.13 (1.00-1.93); BILIRUBIN,TOTAL 0.6 MG/DL (0.2-1.0); CALCIUM LEVEL 7.8 MG/DL (8.8-10.2); CREATININE FOR GFR 1.36 MG/DL (0.70-1.30); GLOMERULAR FILTRATION RATE 53.3 (>35); POTASSIUM SERUM 3.6 MEQ/L (3.5-5.1); TOTAL PROTEIN 4.9 GM/DL (6.4-8.2)
[2016-07-17] MEDS: IRBESARTAN 150 MG TAB PO SCH (09:55)
[2016-07-17] MEDS: FERROUS SULFATE 325MG TAB PO SCH ×2 (09:55→21:09)
--- NOTE | 2016-07-17 13:57 | IPNPDOC ---
Assessment/Plan Date Seen The patient was seen on 07/17/16. Problems Problems: (1) Hemorrhagic disorder due to intrinsic circulating anticoagulants Status: Acute Problem Text: due to ASA and xarelto , EGD was negative colonoscopy positive for bleeding pt continues to have bloody bowel movements surgery is aware. may need another scope (2) Acute blood loss anemia Status: Acute Response to Treatment: Stable Problem Text: from acute gi bleed received 4 units of PRBC. (3) GI bleed Status: Acute Response to Treatment: Stable Problem Text: could be related to asa and xarelto treatment. (4) Atrial fibrillation Status: Chronic Problem Text: paroxysmal , now in sinus rhythm. xarelto stopped for gib (5) History of prostate cancer Status: Chronic Problem Text: diagnosed 10 years ago has not required any treatment yet (6) Hypertension Status: Chronic (7) AAA (abdominal aortic aneurysm) Status: Chronic Plan / VTE VTE Prophylaxis Ordered?: Yes Subjective Review of Systems CC/HPI The patient is a 85-year-old male admitted with a reason for visit of Atrial Fibrillation,Gi Bleed. Events since last encounter pt seen and examined, had another episode of bloody stool, denies any dizziness , and SOB, no other symptoms Objective Physical Examination General Exam: Positive: Alert, No Acute Distress Eye Exam: Positive: Conjunctiva & lids normal, EOMI, PERRLA, Negative: Sclera icteric ENT Exam: Positive: Atraumatic, Mucous membr. moist/pink, Pharynx Normal Neck Exam: Positive: Supple, Negative: JVD, thyromegaly Chest Exam: Positive: Clear to auscultation, Normal air movement Heart Exam: Positive: Murmurs, Normal S1, Normal S2, Rate Normal Abdomen Exam: Positive: Normal bowel sounds, Soft, Negative: Hepatospenomegaly, Tenderness Extremity Exam: Positive: Normal pulses, Negative: Clubbing, Cyanosis, Edema Vital Signs/I&O Vital Signs Date Time Temp Pulse Resp B/P Pulse Ox O2 Delivery O2 Flow Rate FiO2 07/17/16 12:21 171/78 07/17/16 10:00 96.4 79 18 99 Room Air 07/15/16 10:54 2 I&O- Last 24 Hours up to 6 AM 07/17/16 06:00 Intake Total 3420 ml Output Total 2250 ml Balance 1170 ml Laboratory Data Labs 24H Laboratory Tests 2 07/17/16 05:48: Blood Urea Nitrogen 12, Creatinine 1.36H, Sodium Level 143, Potassium Level 3.6 , Chloride Level 109H, Carbon Dioxide Level 25, Calcium Level 7.8L, Aspartate Amino Transf (AST/SGOT) 21, Alanine Aminotransferase (ALT/SGPT) 19, Alkaline Phosphatase 55, Total Bilirubin 0.6, Total Protein 4.9L, Albumin 2.6L, Albumin/ Globulin Ratio 1.13, Anion Gap 9, White Blood Count 7.8, Red Blood Count 3.06L, Hemoglobin 8.7L, Hematocrit 26.7L, Mean Corpuscular Volume 87.2, Mean Corpuscular Hemoglobin 28.3, Mean Corpuscular Hemoglobin Concent 32.5, Red Cell Distribution Width 17.8H, Platelet Count 157, Neutrophils (%) (Auto) 64.5, Lymphocytes (%) (Auto) 21.5L, Monocytes (%) (Auto) 8.4H, Eosinophils (%) (Auto) 3.4H, Basophils (%) (Auto) 0.4, Neutrophils # (Auto) 5.0, Lymphocytes # (Auto) 1.8, Monocytes # (Auto) 0.7, Eosinophils # (Auto) 0.3, Basophils # (Auto) 0.0, Glomerular Filtration Rate 53.3, Large Unclassified Cells # 0.1, Large Unclassified Cells % 1.8 CBC/BMP Laboratory Tests 07/16/16 20:34 07/17/16 00:39 07/17/16 05:48 Calcium Level 7.8 L, Aspartate Amino Transf (AST/SGOT) 21, Alanine Aminotransferase (ALT/SGPT) 19, Alkaline Phosphatase 55, Total Bilirubin 0.6, Total Protein 4.9 L, Albumin 2.6 L, Red Blood Count 3.06 L, Mean Corpuscular Volume 87.2, Mean Corpuscular Hemoglobin 28.3, Mean Corpuscular Hemoglobin Concent 32.5, Red Cell Distribution Width 17.8 H, Neutrophils (%) (Auto) 64.5, Lymphocytes (%) (Auto) 21.5 L, Monocytes (%) (Auto) 8.4 H, Eosinophils (%) (Auto ) 3.4 H, Basophils (%) (Auto) 0.4, Neutrophils # (Auto) 5.0, Lymphocytes # (Auto ) 1.8, Monocytes # (Auto) 0.7, Eosinophils # (Auto) 0.3, Basophils # (Auto) 0.0 07/17/16 11:36 TIGRE MARTI DO Jul 17, 2016 13:57
[2016-07-17] MEDS ORDERED: GOLYTELY SOLN 4000 ML BTL PO ONE (17:30)
[2016-07-18] VITALS (11 sets, daily range): BP systolic 124–168; BP diastolic 60–80
[2016-07-18 07:03] LABS: BASO % 0.3 % (0.0-1.0); EOS # 0.3 K/mm3 (0.0-0.50); EOS % 4.9 % (0.0-3.0); LARGE UNSTAINED CELL # 0.2 K/mm3 (0.0-0.4); LARGE UNSTAINED CELL % 2.4 % (0.0-4.0); LYMPH # 1.4 K/mm3 (1.5-4.5); LYMPH % 21.4 % (24.0-44.0); MEAN CORPUSCULAR HEMOGLOBIN 28.5 pg (27.0-33.0); MEAN CORPUSCULAR HGB CONC 32.6 g/dl (32.0-36.5); MEAN CORPUSCULAR VOLUME 87.6 fl (80.0-96.0); MONO # 0.5 K/mm3 (0.0-0.8); MONO % 8.3 % (0.0-5.0); NEUTROPHILS # 4.1 K/mm3 (1.8-7.7); NEUTROPHILS % 62.7 % (36.0-66.0); PLATELET COUNT, AUTOMATED 177 k/mm3 (150-450); RED CELL DISTRIBUTION WIDTH 17.2 % (11.5-14.5); WHITE BLOOD COUNT 6.4 K/mm3 (4.0-10.0)
[2016-07-18 07:29] LABS: ALBUMIN 2.8 GM/DL (3.2-5.2); ALBUMIN/GLOBULIN RATIO 1.17 (1.00-1.93); BILIRUBIN,TOTAL 0.6 MG/DL (0.2-1.0); CALCIUM LEVEL 7.9 MG/DL (8.8-10.2); CREATININE FOR GFR 1.27 MG/DL (0.70-1.30); GLOMERULAR FILTRATION RATE 57.7 (>35); POTASSIUM SERUM 3.5 MEQ/L (3.5-5.1); TOTAL PROTEIN 5.2 GM/DL (6.4-8.2)
[2016-07-18] MEDS ORDERED: PROPOFOL 200 MG/20 ML VIAL As Ordered ONE (09:30)
[2016-07-18] MEDS ORDERED: ePHEDrine SULFATE 25 MG/5 ML(5MG/ML) SYRINGE As Ordered ONE (09:31)
[2016-07-18] MEDS ORDERED: LIDOCAINE 2% INJ 100 MG/5 ML SDV (FOR ANES.) As Ordered ONE (09:31)
--- NOTE | 2016-07-18 10:07 | ROOR ---
Patient Name: Royal Stockton Procedure Date: 07/18/2016 9:09 AM Date of : 1930 Age: 85 Room: [facility] Gender: Male Note Status: Finalized Procedure: Colonoscopy Indications: Rectal bleeding, Patient had a punctate bleeding point, an angioectasia, in the cecum identified and cauterized on 07/15/16. The patient initially stopped bleeding but has subsequently had some intermittent recurrent bleeding and is now for repeat colonoscopy. Providers: Keegan Clancy MD Referring MD: TIFF ORR JR, MD Requesting Provider: Medicines: Monitored Anesthesia Care Complications: No immediate complications. Procedure: Pre-Anesthesia Assessment: - Prior to the procedure, a History and Physical was performed, and patient medications and allergies were reviewed. The patient is competent. The risks and benefits of the procedure and the sedation options and risks were discussed with the patient. All questions were answered and informed consent was obtained. Patient identification and proposed procedure were verified by the physician, the nurse and the anesthesiologist in the procedure room. Mental Status Examination: alert and oriented. Airway Examination: normal oropharyngeal airway and neck mobility. CV Examination: regular rate and rhythm. Prophylactic Antibiotics: The patient does not require prophylactic antibiotics. Prior Anticoagulants: The patient has taken no previous anticoagulant or antiplatelet agents. ASA Grade Assessment: III - A patient with severe systemic disease. After reviewing the risks and benefits, the patient was deemed in satisfactory condition to undergo the procedure. The anesthesia plan was to use monitored anesthesia care (MAC). Immediately prior to administration of medications, the patient was re-assessed for adequacy to receive sedatives. The heart rate, respiratory rate, oxygen saturations, blood pressure, adequacy of pulmonary ventilation, and response to care were monitored throughout the procedure. The physical status of the patient was re-assessed after the procedure. The Colonoscope was introduced through the anus and advanced to the cecum, identified by appendiceal orifice and ileocecal valve. The colonoscopy was performed without difficulty. The patient tolerated the procedure well. The quality of the bowel preparation was excellent. Findings: The perianal and digital rectal examinations were normal. Multiple medium-mouthed diverticula were found in the sigmoid colon. A single small angioectasia without bleeding was found in the cecum. The punctate bleeding site now had an ulceration following cauterization 3 days previously. A single (solitary) ten mm ulcer was found in the cecum. No bleeding was present. No stigmata of recent bleeding were seen. For hemostasis, three hemostatic clips were successfully placed (MR unsafe). There was no bleeding at the end of the procedure. Impression: - Diverticulosis in the sigmoid colon. - A single (solitary) ulcer in the cecum. Clips (MR unsafe) were placed. - No specimens collected. - A single non-bleeding colonic angioectasia. Three hemostatic clips were applied. Recommendation: - Return patient to [facility] for [facility] care. - Clear liquid diet. - Continue present medications. Keegan Clancy MD 07/18/2016 10:06:54 AM Number of Addenda: 0 Note Initiated On: 07/18/2016 9:09 AM Estimated Blood Loss: Estimated blood loss: none.
[2016-07-18] MEDS: FERROUS SULFATE 325MG TAB PO SCH ×2 (10:30→21:00)
[2016-07-18] MEDS: IRBESARTAN 150 MG TAB PO SCH (10:31)
--- NOTE | 2016-07-18 13:47 | IPNPDOC ---
Assessment/Plan Date Seen The patient was seen on 07/18/16. Problems Problems: (1) Hemorrhagic disorder due to intrinsic circulating anticoagulants Status: Acute Problem Text: due to ASA and xarelto , EGD was negative colonoscopy positive for bleeding had another colonoscopy today 07/18/15 (2) Acute blood loss anemia Status: Acute Response to Treatment: Stable Problem Text: from acute gi bleed received 4 units of PRBC. (3) GI bleed Status: Acute Response to Treatment: Stable Problem Text: could be related to asa and xarelto treatment. (4) Atrial fibrillation Status: Chronic Problem Text: paroxysmal , now in sinus rhythm. xarelto stopped for gib will start ASA in 1 week (5) History of prostate cancer Status: Chronic Problem Text: diagnosed 10 years ago has not required any treatment yet (6) Hypertension Status: Chronic (7) AAA (abdominal aortic aneurysm) Status: Chronic Plan / VTE VTE Prophylaxis Ordered?: Yes Subjective Review of Systems CC/HPI The patient is a 85-year-old male admitted with a reason for visit of Atrial Fibrillation,Gi Bleed. Events since last encounter pt seen and examined, doing well denies any dizziness, sob, abd pain, chest pain or palpitations Objective Physical Examination General Exam: Positive: Alert, No Acute Distress Eye Exam: Positive: Conjunctiva & lids normal, EOMI, PERRLA, Negative: Sclera icteric ENT Exam: Positive: Atraumatic, Mucous membr. moist/pink, Pharynx Normal Neck Exam: Positive: Supple, Negative: JVD, thyromegaly Chest Exam: Positive: Clear to auscultation, Normal air movement Heart Exam: Positive: Murmurs, Normal S1, Normal S2, Rate Normal Abdomen Exam: Positive: Normal bowel sounds, Soft, Negative: Hepatospenomegaly, Tenderness Extremity Exam: Positive: Normal pulses, Negative: Clubbing, Cyanosis, Edema Vital Signs/I&O Vital Signs Date Time Temp Pulse Resp B/P Pulse Ox O2 Delivery O2 Flow Rate FiO2 07/18/16 12:20 97.6 74 16 156/72 98 Room Air 07/15/16 10:54 2 I&O- Last 24 Hours up to 6 AM 07/18/16 06:00 Intake Total 2520 ml Output Total 2925 ml Balance -405 ml Laboratory Data Labs 24H Laboratory Tests 2 07/18/16 06:42: Blood Urea Nitrogen 9, Creatinine 1.27, Sodium Level 145, Potassium Level 3.5, Chloride Level 110H, Carbon Dioxide Level 26, Calcium Level 7.9L, Aspartate Amino Transf (AST/SGOT) 21, Alanine Aminotransferase (ALT/SGPT) 21, Alkaline Phosphatase 59, Total Bilirubin 0.6, Total Protein 5.2L, Albumin 2.8L, Albumin/ Globulin Ratio 1.17, Anion Gap 9, White Blood Count 6.4, Red Blood Count 3.07L, Hemoglobin 8.8L, Hematocrit 26.9L, Mean Corpuscular Volume 87.6, Mean Corpuscular Hemoglobin 28.5, Mean Corpuscular Hemoglobin Concent 32.6, Red Cell Distribution Width 17.2H, Platelet Count 177, Neutrophils (%) (Auto) 62.7, Lymphocytes (%) (Auto) 21.4L, Monocytes (%) (Auto) 8.3H, Eosinophils (%) (Auto) 4.9H, Basophils (%) (Auto) 0.3, Neutrophils # (Auto) 4.1, Lymphocytes # (Auto) 1.4L, Monocytes # (Auto) 0.5, Eosinophils # (Auto) 0.3, Basophils # (Auto) 0.0, Glomerular Filtration Rate 57.7, Large Unclassified Cells # 0.2, Large Unclassified Cells % 2.4 CBC/BMP Laboratory Tests 07/17/16 18:29 07/18/16 00:32 07/18/16 06:42 Calcium Level 7.9 L, Aspartate Amino Transf (AST/SGOT) 21, Alanine Aminotransferase (ALT/SGPT) 21, Alkaline Phosphatase 59, Total Bilirubin 0.6, Total Protein 5.2 L, Albumin 2.8 L, Red Blood Count 3.07 L, Mean Corpuscular Volume 87.6, Mean Corpuscular Hemoglobin 28.5, Mean Corpuscular Hemoglobin Concent 32.6, Red Cell Distribution Width 17.2 H, Neutrophils (%) (Auto) 62.7, Lymphocytes (%) (Auto) 21.4 L, Monocytes (%) (Auto) 8.3 H, Eosinophils (%) (Auto ) 4.9 H, Basophils (%) (Auto) 0.3, Neutrophils # (Auto) 4.1, Lymphocytes # (Auto ) 1.4 L, Monocytes # (Auto) 0.5, Eosinophils # (Auto) 0.3, Basophils # (Auto) 0.0 07/18/16 12:00 TIGRE MARTI DO Jul 18, 2016 13:47
[2016-07-19 02:00] VITALS: BP 132/69
[2016-07-19 05:56] LABS: BASO % 0.4 % (0.0-1.0); EOS # 0.2 K/mm3 (0.0-0.50); EOS % 3.8 % (0.0-3.0); LARGE UNSTAINED CELL # 0.2 K/mm3 (0.0-0.4); LYMPH # 1.5 K/mm3 (1.5-4.5); LYMPH % 22.5 % (24.0-44.0); MEAN CORPUSCULAR HEMOGLOBIN 28.3 pg (27.0-33.0); MEAN CORPUSCULAR HGB CONC 32.4 g/dl (32.0-36.5); MEAN CORPUSCULAR VOLUME 87.5 fl (80.0-96.0); MONO # 0.6 K/mm3 (0.0-0.8); MONO % 8.3 % (0.0-5.0); NEUTROPHILS # 4.1 K/mm3 (1.8-7.7); NEUTROPHILS % 62.1 % (36.0-66.0); PLATELET COUNT, AUTOMATED 178 k/mm3 (150-450); RED CELL DISTRIBUTION WIDTH 16.9 % (11.5-14.5); WHITE BLOOD COUNT 6.7 K/mm3 (4.0-10.0)
[2016-07-19 06:00] VITALS: BP 118/66
[2016-07-19 06:14] LABS: ALBUMIN 2.7 GM/DL (3.2-5.2); ALBUMIN/GLOBULIN RATIO 1.23 (1.00-1.93); ALKALINE PHOSPHATASE 68 U/L (45-117); ALT/SGPT 20 U/L (12-78); ANION GAP 9 MEQ/L (8-16); AST/SGOT 21 U/L (15-37); BILIRUBIN,TOTAL 0.5 MG/DL (0.2-1.0); BLOOD UREA NITROGEN 7 MG/DL (7-18); CALCIUM LEVEL 8.1 MG/DL (8.8-10.2); CARBON DIOXIDE LEVEL 26 MEQ/L (21-32); CHLORIDE LEVEL 110 MEQ/L (98-107); CREATININE FOR GFR 1.22 MG/DL (0.70-1.30); GLOMERULAR FILTRATION RATE > 60.0 (>35); GLUCOSE, FASTING 88 MG/DL (83-110); POTASSIUM SERUM 3.4 MEQ/L (3.5-5.1); SODIUM LEVEL 145 MEQ/L (136-145); TOTAL PROTEIN 4.9 GM/DL (6.4-8.2)
[2016-07-19] MEDS: FERROUS SULFATE 325MG TAB PO SCH ×2 (10:38→20:34)
[2016-07-19 14:00] VITALS: BP 168/90
[2016-07-19 18:00] VITALS: BP_SYST 160; BP_SYST 170; BP_DIAS 70; BP_DIAS 78
--- NOTE | 2016-07-19 19:15 | IPNPDOC ---
Assessment/Plan Date Seen The patient was seen on 07/19/16. Problems Problems: (1) Hemorrhagic disorder due to intrinsic circulating anticoagulants Status: Acute Problem Text: due to ASA and xarelto , EGD was negative colonoscopy positive for bleeding had another colonoscopy today 07/18/15 continues to have blood in stool will continue to trend h&H (2) Acute blood loss anemia Status: Acute Response to Treatment: Stable Problem Text: from acute gi bleed received 7 units of PRBC. (3) GI bleed Status: Acute Response to Treatment: Stable Problem Text: could be related to asa and xarelto treatment. (4) Atrial fibrillation Status: Chronic Problem Text: paroxysmal , now in sinus rhythm. xarelto stopped for gib if bleeding stops pt may be started on asa again (5) History of prostate cancer Status: Chronic Problem Text: diagnosed 10 years ago has not required any treatment yet (6) Hypertension Status: Chronic (7) AAA (abdominal aortic aneurysm) Status: Chronic Plan / VTE VTE Prophylaxis Ordered?: Yes Subjective Review of Systems CC/HPI The patient is a 85-year-old male admitted with a reason for visit of Atrial Fibrillation,Gi Bleed. Constitutional: Denies: Chills, Fever, Malaise, Night Sweats, Weakness Gastrointestinal: Reports: Hematochezia, Melena Objective Physical Examination General Exam: Positive: Alert, No Acute Distress Eye Exam: Positive: Conjunctiva & lids normal, EOMI, PERRLA, Negative: Sclera icteric ENT Exam: Positive: Atraumatic, Mucous membr. moist/pink, Pharynx Normal Neck Exam: Positive: Supple, Negative: JVD, thyromegaly Chest Exam: Positive: Clear to auscultation, Normal air movement Heart Exam: Positive: Murmurs, Normal S1, Normal S2, Rate Normal Abdomen Exam: Positive: Normal bowel sounds, Soft, Negative: Hepatospenomegaly, Tenderness Extremity Exam: Positive: Normal pulses, Negative: Clubbing, Cyanosis, Edema Vital Signs/I&O Vital Signs Date Time Temp Pulse Resp B/P Pulse Ox O2 Delivery O2 Flow Rate FiO2 07/19/16 18:00 81 160/70 80 170/78 93 160/70 07/19/16 14:00 96.9 17 95 Room Air 07/15/16 10:54 2 I&O- Last 24 Hours up to 6 AM 07/19/16 06:00 Intake Total 2340 ml Output Total 1800 ml Balance 540 ml Laboratory Data Labs 24H Laboratory Tests 2 07/19/16 05:32: Blood Urea Nitrogen 7, Creatinine 1.22, Sodium Level 145, Potassium Level 3.4L, Chloride Level 110H, Carbon Dioxide Level 26, Calcium Level 8.1L, Aspartate Amino Transf (AST/SGOT) 21, Alanine Aminotransferase (ALT/SGPT) 20, Alkaline Phosphatase 68, Total Bilirubin 0.5, Total Protein 4.9L, Albumin 2.7L, Albumin/ Globulin Ratio 1.23, Anion Gap 9, White Blood Count 6.7, Red Blood Count 2.96L, Hemoglobin 8.4L, Hematocrit 25.9L, Mean Corpuscular Volume 87.5, Mean Corpuscular Hemoglobin 28.3, Mean Corpuscular Hemoglobin Concent 32.4, Red Cell Distribution Width 16.9H, Platelet Count 178, Neutrophils (%) (Auto) 62.1, Lymphocytes (%) (Auto) 22.5L, Monocytes (%) (Auto) 8.3H, Eosinophils (%) (Auto) 3.8H, Basophils (%) (Auto) 0.4, Neutrophils # (Auto) 4.1, Lymphocytes # (Auto) 1.5, Monocytes # (Auto) 0.6, Eosinophils # (Auto) 0.2, Basophils # (Auto) 0.0, Glomerular Filtration Rate > 60.0, Large Unclassified Cells # 0.2, Large Unclassified Cells % 3.0 CBC/BMP Laboratory Tests 07/19/16 00:18 07/19/16 05:32 Calcium Level 8.1 L, Aspartate Amino Transf (AST/SGOT) 21, Alanine Aminotransferase (ALT/SGPT) 20, Alkaline Phosphatase 68, Total Bilirubin 0.5, Total Protein 4.9 L, Albumin 2.7 L, Red Blood Count 2.96 L, Mean Corpuscular Volume 87.5, Mean Corpuscular Hemoglobin 28.3, Mean Corpuscular Hemoglobin Concent 32.4, Red Cell Distribution Width 16.9 H, Neutrophils (%) (Auto) 62.1, Lymphocytes (%) (Auto) 22.5 L, Monocytes (%) (Auto) 8.3 H, Eosinophils (%) (Auto ) 3.8 H, Basophils (%) (Auto) 0.4, Neutrophils # (Auto) 4.1, Lymphocytes # (Auto ) 1.5, Monocytes # (Auto) 0.6, Eosinophils # (Auto) 0.2, Basophils # (Auto) 0.0 07/19/16 12:10 07/19/16 18:14 TIGRE MARTI DO Jul 19, 2016 19:15
[2016-07-19 22:00] VITALS: BP_SYST 143; BP_SYST 152; BP_SYST 153; BP_DIAS 67; BP_DIAS 72; BP_DIAS 76
[2016-07-20] VITALS (7 sets, daily range): BP systolic 115–154; BP diastolic 56–76
[2016-07-20 06:30] LABS: BASO % 0.2 % (0.0-1.0); EOS # 0.3 K/mm3 (0.0-0.50); EOS % 4.9 % (0.0-3.0); LARGE UNSTAINED CELL # 0.2 K/mm3 (0.0-0.4); LARGE UNSTAINED CELL % 2.9 % (0.0-4.0); LYMPH # 1.5 K/mm3 (1.5-4.5); LYMPH % 25.4 % (24.0-44.0); MEAN CORPUSCULAR HEMOGLOBIN 28.3 pg (27.0-33.0); MEAN CORPUSCULAR HGB CONC 32.4 g/dl (32.0-36.5); MEAN CORPUSCULAR VOLUME 87.4 fl (80.0-96.0); MONO # 0.5 K/mm3 (0.0-0.8); MONO % 7.8 % (0.0-5.0); NEUTROPHILS # 3.4 K/mm3 (1.8-7.7); NEUTROPHILS % 58.7 % (36.0-66.0); PLATELET COUNT, AUTOMATED 194 k/mm3 (150-450); RED CELL DISTRIBUTION WIDTH 16.8 % (11.5-14.5); WHITE BLOOD COUNT 5.7 K/mm3 (4.0-10.0)
[2016-07-20 06:56] LABS: ALBUMIN 2.7 GM/DL (3.2-5.2); ALBUMIN/GLOBULIN RATIO 1.17 (1.00-1.93); BILIRUBIN,TOTAL 0.5 MG/DL (0.2-1.0); CALCIUM LEVEL 8.2 MG/DL (8.8-10.2); CREATININE FOR GFR 1.24 MG/DL (0.70-1.30); GLOMERULAR FILTRATION RATE 59.3 (>35); POTASSIUM SERUM 3.6 MEQ/L (3.5-5.1)
[2016-07-20] MEDS: IRBESARTAN 150 MG TAB PO SCH (10:42)
[2016-07-20] MEDS: FERROUS SULFATE 325MG TAB PO SCH ×2 (10:42→20:29)
--- NOTE | 2016-07-20 13:32 | IPNPDOC ---
Assessment/Plan Date Seen The patient was seen on 07/20/16. Problems Problems: (1) Hemorrhagic disorder due to intrinsic circulating anticoagulants Status: Acute Problem Text: due to ASA and xarelto , EGD was negative colonoscopy positive for bleeding had another colonoscopy today 07/18/15 will continue to trend h&H (2) Acute blood loss anemia Status: Acute Response to Treatment: Stable Problem Text: from acute gi bleed received 7 units of PRBC. (3) GI bleed Status: Acute Response to Treatment: Stable Problem Text: could be related to asa and xarelto treatment. (4) Atrial fibrillation Status: Chronic Problem Text: paroxysmal , now in sinus rhythm. xarelto stopped for gib if bleeding stops pt may be started on asa again (5) History of prostate cancer Status: Chronic Problem Text: diagnosed 10 years ago has not required any treatment yet (6) Hypertension Status: Chronic (7) AAA (abdominal aortic aneurysm) Status: Chronic Plan / VTE VTE Prophylaxis Ordered?: Yes Subjective Review of Systems CC/HPI The patient is a 85-year-old male admitted with a reason for visit of Atrial Fibrillation,Gi Bleed. Events since last encounter pt seen and examined, doing well, no bloody bowel movements Objective Physical Examination General Exam: Positive: Alert, No Acute Distress Eye Exam: Positive: Conjunctiva & lids normal, EOMI, PERRLA, Negative: Sclera icteric ENT Exam: Positive: Atraumatic, Mucous membr. moist/pink, Pharynx Normal Neck Exam: Positive: Supple, Negative: JVD, thyromegaly Chest Exam: Positive: Clear to auscultation, Normal air movement Heart Exam: Positive: Murmurs, Normal S1, Normal S2, Rate Normal Abdomen Exam: Positive: Normal bowel sounds, Soft, Negative: Hepatospenomegaly, Tenderness Extremity Exam: Positive: Normal pulses, Negative: Clubbing, Cyanosis, Edema Vital Signs/I&O Vital Signs Date Time Temp Pulse Resp B/P Pulse Ox O2 Delivery O2 Flow Rate FiO2 07/20/16 10:42 128/65 07/20/16 10:00 90 07/20/16 10:00 97.1 18 96 Room Air 07/15/16 10:54 2 I&O- Last 24 Hours up to 6 AM 07/20/16 06:00 Intake Total 1240 ml Output Total 1180 ml Balance 60 ml Laboratory Data Labs 24H Laboratory Tests 2 07/20/16 06:05: Blood Urea Nitrogen 8, Creatinine 1.24, Sodium Level 145, Potassium Level 3.6, Chloride Level 111H, Carbon Dioxide Level 26, Calcium Level 8.2L, Aspartate Amino Transf (AST/SGOT) 17, Alanine Aminotransferase (ALT/SGPT) 22, Alkaline Phosphatase 70, Total Bilirubin 0.5, Total Protein 5.0L, Albumin 2.7L, Albumin/ Globulin Ratio 1.17, Anion Gap 8, White Blood Count 5.7, Red Blood Count 3.00L, Hemoglobin 8.5L, Hematocrit 26.2L, Mean Corpuscular Volume 87.4, Mean Corpuscular Hemoglobin 28.3, Mean Corpuscular Hemoglobin Concent 32.4, Red Cell Distribution Width 16.8H, Platelet Count 194, Neutrophils (%) (Auto) 58.7, Lymphocytes (%) (Auto) 25.4, Monocytes (%) (Auto) 7.8H, Eosinophils (%) (Auto) 4.9H, Basophils (%) (Auto) 0.2, Neutrophils # (Auto) 3.4, Lymphocytes # (Auto) 1.5, Monocytes # (Auto) 0.5, Eosinophils # (Auto) 0.3, Basophils # (Auto) 0.0, Glomerular Filtration Rate 59.3, Large Unclassified Cells # 0.2, Large Unclassified Cells % 2.9 CBC/BMP Laboratory Tests 07/19/16 18:14 07/20/16 00:06 07/20/16 06:05 Calcium Level 8.2 L, Aspartate Amino Transf (AST/SGOT) 17, Alanine Aminotransferase (ALT/SGPT) 22, Alkaline Phosphatase 70, Total Bilirubin 0.5, Total Protein 5.0 L, Albumin 2.7 L, Red Blood Count 3.00 L, Mean Corpuscular Volume 87.4, Mean Corpuscular Hemoglobin 28.3, Mean Corpuscular Hemoglobin Concent 32.4, Red Cell Distribution Width 16.8 H, Neutrophils (%) (Auto) 58.7, Lymphocytes (%) (Auto) 25.4, Monocytes (%) (Auto) 7.8 H, Eosinophils (%) (Auto) 4.9 H, Basophils (%) (Auto) 0.2, Neutrophils # (Auto) 3.4, Lymphocytes # (Auto) 1.5, Monocytes # (Auto) 0.5, Eosinophils # (Auto) 0.3, Basophils # (Auto) 0.0 07/20/16 12:18 TIGRE MARTI DO Jul 20, 2016 13:32
[2016-07-21 02:00] VITALS: BP_SYST 130; BP_SYST 148; BP_SYST 149; BP_DIAS 64; BP_DIAS 71; BP_DIAS 74
[2016-07-21 06:00] VITALS: BP_SYST 124; BP_SYST 126; BP_SYST 127; BP_DIAS 55; BP_DIAS 68; BP_DIAS 69
[2016-07-21 06:38] LABS: BASO % 0.3 % (0.0-1.0); EOS # 0.2 K/mm3 (0.0-0.50); EOS % 4.3 % (0.0-3.0); LARGE UNSTAINED CELL # 0.2 K/mm3 (0.0-0.4); LARGE UNSTAINED CELL % 3.4 % (0.0-4.0); LYMPH # 1.6 K/mm3 (1.5-4.5); LYMPH % 27.1 % (24.0-44.0); MEAN CORPUSCULAR HEMOGLOBIN 28.4 pg (27.0-33.0); MEAN CORPUSCULAR HGB CONC 31.9 g/dl (32.0-36.5); MEAN CORPUSCULAR VOLUME 88.8 fl (80.0-96.0); MONO # 0.5 K/mm3 (0.0-0.8); MONO % 8.7 % (0.0-5.0); NEUTROPHILS # 3.3 K/mm3 (1.8-7.7); NEUTROPHILS % 56.1 % (36.0-66.0); PLATELET COUNT, AUTOMATED 209 k/mm3 (150-450); RED CELL DISTRIBUTION WIDTH 16.5 % (11.5-14.5); WHITE BLOOD COUNT 5.8 K/mm3 (4.0-10.0)
[2016-07-21 07:03] LABS: CREATININE FOR GFR 1.36 MG/DL (0.70-1.30); GLOMERULAR FILTRATION RATE 53.3 (>35); POTASSIUM SERUM 3.9 MEQ/L (3.5-5.1)
[2016-07-21 07:04] LABS: ALBUMIN 2.7 GM/DL (3.2-5.2); ALBUMIN/GLOBULIN RATIO 1.13 (1.00-1.93); BILIRUBIN,TOTAL 0.3 MG/DL (0.2-1.0); CALCIUM LEVEL 8.2 MG/DL (8.8-10.2); TOTAL PROTEIN 5.1 GM/DL (6.4-8.2)
[2016-07-21 09:00] VITALS: BP 130/60
[2016-07-21] MEDS: IRBESARTAN 150 MG TAB PO SCH (09:00)
[2016-07-21 10:00] VITALS: BP_SYST 138; BP_SYST 148; BP_SYST 149; BP_DIAS 70; BP_DIAS 72
[2016-07-21] MEDS: FERROUS SULFATE 325MG TAB PO SCH (10:10)
--- NOTE | 2016-08-12 13:07 | DSES ---
DATE OF ADMISSION: 07/13/2016 DATE OF DISCHARGE: 07/21/2016 PRIMARY CARE PROVIDER: Dr. Chatman CONSULTATION DURING ADMISSION: Dr. Clancy PROCEDURES PERFORMED: 1. Esophagogastroduodenoscopy (EGD. 2. Colonoscopy times two. CHIEF COMPLAINT: Gastrointestinal (GI) bleed. FINAL DIAGNOSES: 1. GI bleed secondary to ulceration of cecum. 2. Acute blood loss anemia. 3. Atrial fibrillation. 4. History of prostate cancer. 5. Hypertension. 6. Abdominal aortic aneurysm (AAA). HISTORY OF PRESENT ILLNESS: The patient is an 85-year-old male with past medical history significant for atrial fibrillation, normally on Xarelto, who presented to the emergency room complaining of GI bleed. He had noticed also shortness of breath on and off. He had noticed shortness of breath getting worse with the extraneous activity. He went to the emergency room at [facility] and was found to be anemic. He was given iron 325 mg twice a day and was sent home. He continued to have shortness of breath and described dark stool. The patient stated he has been on Xarelto for the past two years for atrial fibrillation. He was admitted under the hospitalist service after he was started on pantoprazole 40 mg bolus. HOSPITAL COURSE: The patient was seen by Dr. Clancy for GI bleed. He was taken for EGD and colonoscopy. EGD did not show any signs of bleeding. Initial colonoscopy showed one bleeding colonic angioectasia treated with hot biopsy forceps. A 4 mm polyp was collected. The patient returned back to the unit. He continued to receive packed red blood cells (RBCs). Xarelto was held. Hemoglobin and hematocrit were monitored. The patient continued to trend down, requiring more blood transfusions. He was taken back again for a second colonoscopy. This time, he was found to have a single ulcer in the cecum. Clips were applied, three of them. The patient was returned back to the [facility]. Hemoglobin stayed stable over the past couple of days until he was stable enough to start on a diet. Once he was tolerating a diet, he was discharged home. He was instructed not to take Xarelto or aspirin and to followup with his primary care provider. DISCHARGE INSTRUCTIONS: Followup with Dr. Chatman in 2-5 days. Diet: Low sodium diet. Activities: As tolerated. Discharge medications include iron 325 mg by mouth twice a day. His irbesartan was also held due to hypotension. DISCHARGE CONDITION: Stable.
== END 2016-07-21 15:08 | disposition home or self-care (01) | DRG 394 ==
LOC: M ED 17:20 → M ED INP 21:16 → M MSPAV 22:07
PROVIDERS: ADMIT Internal Medicine; ATTEND Internal Medicine
PROC: 30253N1 (ICD-10-PCS; 2016-07-13)
PROC: 0DJ08ZZ Inspection of Upper Intestinal Tract, Via Natural or Artificial Opening Endoscopic (ICD-10-PCS; 2016-07-14)
PROC: 0W3P8ZZ Control Bleeding in Gastrointestinal Tract, Via Natural or Artificial Opening Endoscopic (ICD-10-PCS; principal; 2016-07-14 14:39)
PROC: 0W3P8ZZ Control Bleeding in Gastrointestinal Tract, Via Natural or Artificial Opening Endoscopic (ICD-10-PCS; 2016-07-18)
DX: K63.3 Ulcer of intestine (principal); K92.2 Gastrointestinal hemorrhage, unspecified; D62 Acute posthemorrhagic anemia; D68.32 Hemorrhagic disorder due to extrinsic circulating anticoagulants; I48.2 Chronic atrial fibrillation; I71.4 Abdominal aortic aneurysm, without rupture; I10 Essential (primary) hypertension; K44.9 Diaphragmatic hernia without obstruction or gangrene; K31.7 Polyp of stomach and duodenum; K57.30 Diverticulosis of large intestine without perforation or abscess without bleeding; K62.0 Anal polyp; Z79.82 Long term (current) use of aspirin; Z79.899 Other long term (current) drug therapy; Z79.01 Long term (current) use of anticoagulants; Z85.46 Personal history of malignant neoplasm of prostate

== ENCOUNTER → 2019-01-01 | Outpatient (REF) | payer MEDICARE ==
[~2019-01-01] MED LIST: FERR1TAB8 PO; IRBE150T12 PO; XARE20TA PO
[2019-01-01 13:16] LABS: INR 1.58; PROTHROMBIN TIME 18.6 SECONDS (11.8-14.0)
== END ==
LOC: M LAB REF 12:21
PROVIDERS: ATTEND Internal Medicine
DX: I48.0 Paroxysmal atrial fibrillation (principal); R39.9 Unspecified symptoms and signs involving the genitourinary system

== ENCOUNTER → 2020-01-10 | Outpatient (REF) | payer MEDICARE ==
[~2020-01-10] MED LIST changes: -IRBE150T12 PO; +IRBE150T7 PO
[2020-01-10 16:58] LABS: FOLATE > 24.0 NG/ML; VITAMIN B12 LEVEL 855 PG/ML
== END ==
LOC: M LAB REF 16:09
PROVIDERS: ATTEND Internal Medicine
DX: R20.2 Paresthesia of skin (principal)

== ENCOUNTER → 2020-07-05 | Outpatient (CLI) | payer MEDICARE ==
--- NOTE | 2020-07-05 12:15 | REP ---
INDICATION: PAIN IN LEGS AND ATHSCL NAZARIO ART OF EXT KIMBERLY LEGS COMPARISON: None. TECHNIQUE: Real time harris scale and Duplex Doppler evaluation of the bilateral lower extremity arterial vasculature using linear high frequency transducer. FINDINGS: Ahrris scale and duplex doppler images demonstrate mild to moderate amounts of atheromatous plaquing with areas of minimal narrowing but no focal stenosis identified. Doppler interrogation demonstrates normal arterial wave forms and velocities bilaterally. Peak systolic velocities (cm/sec) Common femoral artery: Right 60.3; Left 64.9 Profunda femoris: Right 35.9; Left 44.2 SFA (proximal): Right 60.6; Left 61.9 SFA (mid): Right 77.3; Left 82.3 SFA (distal): Right 65.4; Left 58.8 Popliteal artery: Right 40.3; Left 25.7 KRUPA (prox.): Right 52.3; Left 65.9 Tibioperoneal trunk: Right 62; Left 40.1 HOUSE MANAGER (prox.): Right 50.7; Left 48.8 HOUSE MANAGER (distal): Right 50.0; Left 93.3 KRUPA (distal): Right 23.9; Left 96.4 IMPRESSION: Atheromatous changes with areas of narrowing but no obvious focal occlusion or stenosis. <Electronically signed by Jose Harris > 07/05/20 [id number]
== END ==
LOC: M RAD 09:52
PROVIDERS: ATTEND Physician Assistant
DX: I70.213 Atherosclerosis of native arteries of extremities with intermittent claudication, bilateral legs (principal); M79.606 Pain in leg, unspecified

== ENCOUNTER → 2021-02-14 | Outpatient (REF) | payer MEDICARE | LOC: M LAB REF 16:57 | PROVIDERS: ATTEND Nurse Practitioner Adult Health | DX: R21 Rash and other nonspecific skin eruption (principal); W57.XXXA Bitten or stung by nonvenomous insect and other nonvenomous arthropods, initial encounter; X58.XXXA Exposure to other specified factors, initial encounter ==

== ENCOUNTER → 2022-02-14 | Outpatient (REF) | payer MEDICARE ==
[2022-02-14 17:51] LABS: BACTERIA, URINE AUTO NEGATIVE (NEGATIVE); RBC, URINE AUTO 4 /HPF (0-3); SQUAMOUS EPITHELIAL CELL UR AU 0 /HPF (0-6); WBC, URINE AUTO 1 /HPF (0-3)
[2022-02-15 08:28] LABS: TOTAL PROTEIN 7.4 GM/DL (6.4-8.2); VITAMIN B12 LEVEL 714 PG/ML (247-911)
[2022-02-15 10:31] LABS: ALBUMIN 4.15 GM/DL (3.29-5.55); ALBUMIN % 56.1 % (55.8-66.1); ALPHA-1-GLOBULIN % 2.8 % (2.9-4.9); ALPHA-1-GLOBULINS 0.21 GM/DL (0.17-0.41); ALPHA-2-GLOBULINS 0.88 GM/DL (0.42-0.99); ALPHA-2-GLOBULINS % 11.9 % (7.1-11.8); BETA-1-GLOBULINS 0.39 GM/DL (0.28-0.60); BETA-1-GLOBULINS % 5.3 % (4.7-7.2)
[2022-02-15 10:32] LABS: BETA-2-GLOBULINS 0.35 GM/DL (0.19-0.55); BETA-2-GLOBULINS % 4.7 % (3.2-6.5); GAMMA GLOBULIN % 19.2 % (11.1-18.8); GAMMA GLOBULINS 1.42 GM/DL (0.65-1.58)
[2022-02-16 16:09] LABS: FREE KAPPA LIGHT CHAINS SERUM 35.7 mg/L (3.3-19.4); FREE LAMBDA LIGHT CHAINS SERUM 25.7 mg/L (5.7-26.3); KAPPA/LAMBDA RATIO SERUM 1.39 (0.26-1.65)
== END ==
LOC: M LAB REF 16:19
PROVIDERS: ATTEND Internal Medicine
DX: R31.9 Hematuria, unspecified (principal); G60.9 Hereditary and idiopathic neuropathy, unspecified

== ENCOUNTER → 2022-08-01 | Outpatient (CLI) | payer MEDICARE | LOC: M EKG 11:24 | PROVIDERS: ATTEND Internal Medicine | DX: R42 Dizziness and giddiness (principal) ==